=== PATIENT | female | born 1950 | race Caucasian/White ===

== ENCOUNTER 2016-12-12 04:45 | Inpatient (IN) | payer MEDICARE, OTHER ==
--- NOTE | ~2016-12-12 | DS ---
Discharge Summary [facility] [address] [place]. [address] NAME: SANTIAGO PERALTA : 48 STATUS : ADM IN PAT#: [id number] AGE: 66 ADM/REG DATE : 12/12/16 MR#: [id number] REPORT SERV DATE: 12/17/16 DICTATED BY: DARYL SHAIKH DATE: 12/16/16 REPORT STATUS : Draft TRANSCRIBED BY: MODL DATE: 12/16/16 ADMISSION DATE: 12/12/2016 DISCHARGE DATE: HISTORY OF PRESENT ILLNESS: A 66-year-old female with chronic pain, narcotic dependent patient, questionable chronic O2 use she occasionally uses at home at 2 L, history of suspected asthma, sees Dr. Hussein, known history of ischemic cardiomyopathy, LVEF 35% to 40%, cirrhosis the patient was not aware of that until this admission, splenomegaly, thrombocytopenia secondary to cirrhosis, diabetes, peripheral neuropathy, SHASHI, intolerant to CPAP, CAD with history of CABG with PCI occluded graft 2011, history of stroke, history of ventricular tachycardia status post AICD, hypertension, depression, Raynaud, colon polyps, previous MRSA, history of right mastectomy, hysterectomy, and appendectomy. The patient comes in with a cough for which she has had cough with congestion last 6 weeks per patient. She had several rounds of antibiotics, the last on Levaquin. She was in her bathroom, she is feeling ill and then all of her sudden her AICD fired upon her and knocked her to the ground almost but she did not fall. Fever 100.7 upon admission. As a result, she was seen by Cardiology and EP. Interrogation device reveals she had several sustained and nonsustained ventricular tachycardia runs, most of these occur in the first zone where ATP terminated. One of these events actually accelerated the ATP and required defibrillation. Note, that her most recent EF was within normal limits, from being 35% prior. Recently, the amiodarone was discontinued due to pulmonary function test revealing decrease in DLCO and FEV1 both which were corrected for lung volumes. As a result, her VT seems to have been well controlled while she is in combination of amiodarone and mexiletine but due to amiodarone discontinuation, the EP would like to start her on sotalol 120 p.o. b.i.d. EKG shows corrected QT of 45 milliseconds. Most latest recommendations were continue sotalol, mexiletine as per Dr. Sandhu's recommendation. Check EKG in the morning. If the QTc less than 460, the patient is stable for discharge. As a result had an EKG done yesterday, QTc is still less than 460 from today, I will go ahead and discharge and have her followup quickly. The patient was on fluoroquinolone which can worsen the QT as well as macrolide which can worsen the QT, as a result, just placed her on Omnicef for seven additional days. The patient is seen with abdominal pain, had a CT scan of the abdomen which showed probable cirrhosis. Hepatitis serologies I ordered are not seen. As a result, we will follow with Dr. Pandey, and I will make an appointment. The patient's required less insulin here likely due to better compliance, and I ordered lower extremity ultrasound. It did show extensive left lower extremity DVT as a result of her thrombocytopenia from cirrhosis, would rather choose Arixtra at a lower dose, get above 100,000, will try 7.5 subcu daily, for now we will do 5 mg subcu daily. DISCHARGE MEDICATIONS: Aspirin 81 p.o. daily; Lipitor 10 p.o. daily; Bumex 1 mg p.o. daily; Omnicef 300 p.o. b.i.d. for 7 more days; Arixtra 5 subcu daily; NovoLog level 2 sliding scale; lisinopril 5 p.o. daily; mexiletine 150 p.o. b.i.d.; sotalol 120 p.o. b.i.d.; Lortab, we will do half dose from home; MS Paxton, as at home, started p.o. b.i.d. I have instructed the patient to try to reduce her narcotics. KCl 10 mEq p.o. daily; Florastor one capsule p.o. b.i.d. for seven days. Do prednisone taper, 30 p.o. daily for 3 more days, then 10 p.o. daily for 3 days, then stop. Spiriva 18 mcg capsule inhaled daily; Aldactone Discharge Summary [place] [address] [address] [facility] [place]. [address] NAME: SANTIAGO PERALTA : 48 STATUS : ADM IN PAT#: [id number] AGE: 66 ADM/REG DATE : 12/12/16 MR#: [id number] REPORT SERV DATE: 12/17/16 DICTATED BY: DARYL SHAIKH DATE: 12/16/16 REPORT STATUS : Draft TRANSCRIBED BY: MODL DATE: 12/16/16 50 p.o. daily; Symbicort; Levemir 20 units subcu b.i.d.; and Crestor 5 p.o. daily. He will need an outpatient polysomnography test which I will get and also Cardiology and EP. PROCEDURES: The patient had echo here with EF 50% to 55% dilated left atrium, aortic sclerosis with mild aortic regurgitation, mild pulmonary valvular regurgitation. DISCHARGE DIAGNOSES: Sustained ventricular tachycardia, chronic obstructive pulmonary disease, ischemic cardiomyopathy, cirrhosis, diabetes, new deep vein thrombosis, cirrhosis, thrombocytopenia, likely obstructive sleep apnea. All questions were answered. It took well over 30 minutes to do. JANN/ERI Daryl Shaikh DO / [id number] CC: DO Brittany Phillips [facility]
--- NOTE | ~2016-12-12 | HP ---
History And Physical [place] [address] [place]. [address] NAME: SANTIAGO PERALTA : 48 STATUS : REG ER PAT#: [id number] AGE: 66 ADM/REG DATE : 12/12/16 MR#: [id number] REPORT SERV DATE: 12/12/16 DICTATED BY: JULIANNA ROD DATE: 12/12/16 REPORT STATUS : Draft TRANSCRIBED BY: ERI DATE: 12/12/16 DATE OF ADMISSION: 12/12/2016 CHIEF COMPLAINT: Defibrillator firing and cough. HISTORY OF PRESENT ILLNESS: The patient is a very pleasant 66-year-old, white female, who has a longstanding history of asthma, on chronic O2 at 3 L. The patient states for about six weeks, she has had a cough with congestion. The patient states she has seen her PCP on several occasions and has completed several rounds of antibiotics, prednisone inhalers, and has failed to improve. Last evening, she was up to the bathroom and again was feeling ill, and her AICD fired, she states it almost knocked on the floor. She actually did not fall. She presented to the [facility]. She states she has had a low- grade fever in the 99 range. She was 100.7 here. She has had no nausea, vomiting, or diarrhea. Yesterday, she had some chest tightness with breathing. She states she just has not felt good for about six weeks. She does have some sputum. She has tried over-the- counter remedies, but to no avail. She has chronic left lower extremity edema. She has gained about five pounds over the last several days, she states. PAST MEDICAL HISTORY: Positive for: 1. Ischemic cardiomyopathy with EF 35-40. 2. Cirrhosis. 3. Splenomegaly. 4. Thrombocytopenia secondary to cirrhosis. 5. Diabetes mellitus. 6. Peripheral neuropathy. 7. Diabetic retinopathy. 8. SHASHI, but intolerant of CPAP. 9. COPD/asthma, on 3 L of O2 24 hours a day. 10.CAD with history of CABG and status post PTCI with occluded grafts in 2011. 11.TIA/stroke. 12.Ventricular tachycardia status post AICD. 13.Hypertension. 14.Depression. 15.Raynaud's. 16.Atrial fibrillation. 17.Breast cancer. 18.Chronic venous stasis with previous ulceration. 19.Morbid obesity. 20.Dyslipidemia. 21.Urinary tract infections. 22.Colon polyps and previous MRSA. PAST SURGICAL HISTORY: 1. CABG in 1989. 2. AICD. 3. Right mastectomy. History And Physical [place] [address] [place]. [address] NAME: SANTIAGO PERALTA : 48 STATUS : REG ER PAT#: [id number] AGE: 66 ADM/REG DATE : 12/12/16 MR#: [id number] REPORT SERV DATE: 12/12/16 DICTATED BY: JULIANNA ROD DATE: 12/12/16 REPORT STATUS : Draft TRANSCRIBED BY: ERI DATE: 12/12/16 4. Ear tubes. 5. Hysterectomy and oophorectomy. 6. Bilateral knee surgery. 7. Appendectomy. 8. Exploratory laparotomy. 9. Left wrist surgery. ALLERGIES: SULFA AND LATEX. SOCIAL HISTORY: She never smoked. She was exposed to secondhand smoke. She does not drink. She lives with her . FAMILY HISTORY: Mother at 61 of heart disease. Father at 45 of heart disease. HOME MEDICATIONS: Reviewed and attached. REVIEW OF SYSTEMS: Full ten-point review of systems obtained. Pertinent positives are mentioned in the HPI. PHYSICAL EXAMINATION: CURRENT VITAL SIGNS: Her T-max is 100.7, BP 140/121, pulse 82, respiratory rate 20. GENERAL: Well-developed, morbidly obese, white female. HEENT: Normocephalic, atraumatic. Throat is clear. NECK: Supple. HEART: Regular rate and rhythm. LUNGS: She has diffuse expiratory and inspiratory wheezing throughout. Diminished air movement. ABDOMEN: Soft, nontender, nondistended. EXTREMITIES: Warm and dry. Skin is intact. She has 2+ doughy edema to the left lower extremity. The right lower extremity is free of edema. SKIN: She has some chronic venous stasis changes on her anterior tibia bilaterally. NEURO: She is alert. She is oriented to person, place, and time. Her speech and affect are normal. IMAGING AND LABORATORY DATA: Chest x-ray is clear, but it is a very poor film with poor inspiratory effort. Urinalysis shows no significant changes. BNP is 328. Lactate was normal. Flu swab was negative. Chemistry panel is normal other than a glucose of 244 and a troponin of 0.18. H and H of 12.5 and 38, white count 10.4, and platelets are 79. Coags are normal. EKG showed sinus tachycardia initially. ASSESSMENT/PLAN: 1. Ventricular tachycardia with automatic implantable cardioverter-defibrillator firing. She has been seen by Cardiology here. They are going to restart her amiodarone. She will be on a tele bed. I have checked her electrolytes. We will try to treat the History And Physical [address] [address] NAME: SANTIAGO PERALTA : 48 STATUS : REG ER PAT#: [id number] AGE: 66 ADM/REG DATE : 12/12/16 MR#: [id number] REPORT SERV DATE: 12/12/16 DICTATED BY: JULIANNA ROD DATE: 12/12/16 REPORT STATUS : Draft TRANSCRIBED BY: ERI DATE: 12/12/16 underlying respiratory infection. 2. Cough with fever, now with persistent symptoms for six weeks with negative chest x- rays, previously treated with antibiotics and steroids with no improvement. We will do CT chest to rule out occult pneumonia or some other finding that we are missing on x- ray. We will do a procalcitonin, sputum and blood cultures. We will cover empirically with Rocephin and azithromycin. We will add steroids to her regimen along with some DuoNeb and Pulmicort and hopefully with these measures, she will improve. 3. Diabetes mellitus with hyperglycemia. We will go and give her a.m. Levemir, provide level 2 sliding scale with fingerstick blood sugars before meals and at bedtime. 4. Chronic asthma, chronic obstructive pulmonary disease. Please see #2. 5. Coronary artery disease with history of percutaneous transluminal coronary intervention. Troponins are mildly positive, but she had an automatic implantable cardioverter-defibrillator fired and we will check two more sets of cardiac enzymes. She has been seen by Cardiology. 6. Previous transient ischemic attack. 7. Morbid obesity. Needs weight loss. 8. Ischemic cardiomyopathy. Ejection fraction is 35-40. I am going to give her one time dose of IV Bumex and restart her p.o. Bumex and then place her on some p.o. Bumex. She states she takes a diuretic, but she does not even know the name of it. I did review her records. This was what she was on previously. 9. Deep venous thrombosis prophylaxis with subcutaneous Lovenox. 10.Disposition, pending above. HANNAH/ERI Julianna Rod M.D. / [id number] CC: ANNETTE ADAMS M.D. John Carter Hemphill, MD
--- NOTE | ~2016-12-12 | CN ---
Consultation Report [address] [place]. [address] NAME: SANTIAGO PERALTA : 48 STATUS : REG ER PAT#: [id number] AGE: 66 ADM/REG DATE : 12/12/16 MR#: [id number] REPORT SERV DATE: 12/12/16 DICTATED BY: BLAIR TORRES DATE: 12/12/16 REPORT STATUS : Draft TRANSCRIBED BY: MODPaulette DATE: 12/12/16 CARDIOLOGY CONSULTATION DATE OF CONSULTATION: REQUESTING PHYSICIAN: Dr. Pike. [facility] PHYSICIAN: Elton Bridges MD. REASON FOR CONSULTATION: Defibrillator firing, ventricular tachycardia. HISTORY OF PRESENT ILLNESS: Ms. Peralta is a 66-year-old woman with a history of ischemic cardiomyopathy and coronary artery disease. She came to the emergency room after her defibrillator fired. She has had a cough for some period of time and a low-grade fever. She has been followed regularly at the [facility] and through Dr. Hussein of Pulmonology. Recent evaluation with pulmonary function test suggested mild decline in her DLCO but it was in then 90% range when corrected for alveolar ventilation. This was somewhat of a decline from a previous PFT a couple of years back. There was a question of whether the amiodarone could be part of that and since she was on dual antiarrhythmic therapy, the amiodarone was stopped several weeks ago. She reports no underlying change in her cardiac symptoms. No chest pain and chronic dyspnea with no edema. She has had no palpitations or syncope but reports her defibrillator fired. Evaluation of defibrillator confirms episodes of nonsustained ventricular tachycardia. REVIEW OF SYSTEMS: As per the history of present illness. Low-grade fevers are noted. Cough nonproductive, minimal lower extremity edema. PAST MEDICAL HISTORY: 1. COPD. 2. Morbid obesity. 3. Ventricular tachycardia status post previous ICD for many years. 4. Coronary artery disease with previous bypass surgery. 5. Ischemic cardiomyopathy with echo on 02/2016 with an EF of 50%. 6. Sleep apnea. 7. Hypertension. 8. Hypercholesterolemia. 9. Chronic congestive heart failure. FAMILY HISTORY: Noncontributory. SOCIAL HISTORY: The patient is . No tobacco is reported. ALLERGIES: SULFA, LASIX, LATEX. Consultation Report [address] [place]. [address] NAME: SANTIAGO PERALTA : 48 STATUS : REG ER PAT#: [id number] AGE: 66 ADM/REG DATE : 12/12/16 MR#: [id number] REPORT SERV DATE: 12/12/16 DICTATED BY: BLAIR TORRES DATE: 12/12/16 REPORT STATUS : Draft TRANSCRIBED BY: MODPaulette DATE: 12/12/16 HOME MEDICATIONS: Not complete at this time but after review of office notes patient had been on both mexiletine and amiodarone. PHYSICAL EXAMINATION: VITAL SIGNS: The patient is afebrile. Heart rate 84, blood pressure 136/60. GENERAL: The patient is a pleasant, obese white female, no apparent distress. HEENT: Conjunctivae are anicteric, no xanthelasma, lips without cyanosis. NECK: Supple. Jugular venous pressure is not elevated. LUNGS: Decreased breath sounds in the bases. No rales. CARDIOVASCULAR: Regular rate and rhythm. Normal S1 and S2. ABDOMEN: Soft, nontender, nondistended, with normal bowel sounds. No hepatomegaly. EXTREMITIES: Trivial lower extremity edema. NEURO/PSYCH: Alert and oriented to person, place and time. No obvious neurologic deficits. Mood and affect normal. DATA: Electrocardiogram shows sinus rhythm/sinus tachycardia, poor R-wave progression. Nonspecific ST-segment changes. IMPRESSION: 1. Nonsustained ventricular tachycardia with defibrillator firing in the setting of recent cessation of amiodarone therapy. 2. Pneumonia. 3. Recent amiodarone discontinuation as above. 4. Chronic obstructive pulmonary disease on home O2. 5. Coronary artery disease with history of ischemic cardiomyopathy. 6. Sleep apnea. 7. Hypertension. 8. Hypercholesterolemia. RECOMMENDATIONS: Ms. Peralta's defibrillator fired. She has had defibrillator for many years and never had VT before. I suspect this is related to amiodarone withdrawal. After reviewing the records, it is unclear whether the amiodarone had contributed to her decreased DLCO which was still in a reasonable range when corrected for alveolar ventilation. I think this is a matter of risk and benefit of medications. Clearly ventricular tachycardia is significant risk for her if recurrent and she is already on mexiletine. To this end, I am going to restart her amiodarone. I have discussed with her that there is some mild risk to the lungs but further evaluation could be determined if this is the most appropriate long- term treatment. She understands and agrees. WO/MODL Blair Consultation Report [place] [id number] [address] NAME: SANTIAGO PERALTA : 48 STATUS : REG ER PAT#: [id number] AGE: 66 ADM/REG DATE : 12/12/16 MR#: [id number] REPORT SERV DATE: 12/12/16 DICTATED BY: BLARI TORRES DATE: 12/12/16 REPORT STATUS : Draft TRANSCRIBED BY: ERI DATE: 12/12/16 Vanessa Torres, Ph.D, F.A.C.C. / [id number]
--- NOTE | ~2016-12-12 | CN ---
Consultation Report [facility] [address] [facility] [place]. [address] NAME: SANTIAGO PERALTA : 46 STATUS : ADM IN PAT#: [id number] AGE: 66 ADM/REG DATE : 12/12/16 MR#: [id number] REPORT SERV DATE: 12/13/16 DICTATED BY: GEORGE PATEL DATE: 12/13/16 REPORT STATUS : Draft TRANSCRIBED BY: MODL DATE: 12/13/16 ELECTROPHYSIOLOGY CONSULTATION. DATE OF CONSULTATION: 12/13/2016 REASON FOR CONSULTATION: ICD firing. HISTORY OF PRESENT ILLNESS: Ms. Peralta is a pleasant 66-year-old woman, who was admitted with ICD shock. Interrogation of her device reveals that she has had several both nonsustained and sustained ventricular tachycardia runs. Most of these have occurred in the first zone and were ATP terminated. One of the events actually accelerated with ATP and required defibrillation. The patient has a longstanding history of coronary artery disease status post CAB performed in 2011. She had an ischemic cardiomyopathy with an ejection fraction less than 35% at one point, but most recently, her ejection fraction has been within normal limits. She has a history of ventricular tachycardia, and this has been treated with a combination of medicines that include beta-arcelia, mexiletine, and amiodarone. Recently, the amiodarone was discontinued due to pulmonary function testing revealing a decrease in both DLCO and FEV1, both of which corrective for lung volumes. The patient has a known history of severe COPD, which is O2 dependent and for which she also takes steroids. PAST MEDICAL HISTORY: 1. Ischemic cardiomyopathy, ejection fraction now 55% but had been less than 35% at one point. 2. Coronary artery disease status post CABG in 2011. 3. Thrombocytopenia secondary to cirrhosis. 4. Diabetes mellitus. 5. Peripheral neuropathy. 6. Diabetic retinopathy. 7. Status post ICD history of ventricular tachycardia. 8. History of decrease in pulmonary function studies, on amiodarone, although both DLCO and FEV1 corrected for lung volumes. 9. Diabetic retinopathy. 10.COPD. 11.History of TIA stroke. 12.Hypertension. 13.History of atrial fibrillation. 14.Morbid obesity. FAMILY HISTORY: Negative for premature coronary artery disease or sudden cardiac . SOCIAL HISTORY: Negative for tobacco or alcohol. REVIEW OF SYSTEMS: Consultation Report [place] [id number] [facility] [place]. [address] NAME: SANTIAGO PERALTA : 46 STATUS : ADM IN PAT#: [id number] AGE: 66 ADM/REG DATE : 12/12/16 MR#: [id number] REPORT SERV DATE: 12/13/16 DICTATED BY: GEORGE PATEL DATE: 12/13/16 REPORT STATUS : Draft TRANSCRIBED BY: MODL DATE: 12/13/16 As noted above. All other systems reviewed and negative. PHYSICAL EXAMINATION: GENERAL: In no acute distress. VITAL SIGNS: Her blood pressure is 146/66, pulse 68, and respirations 16. GENERAL: Well developed, well nourished. HEENT: No icterus. Good dentition. NECK: Supple. No masses or thyromegaly. LUNGS: Breathing comfortably. No rales or wheezes. COR: Normal S1 and S2. No S3 or S4. No murmurs, clicks, rubs. No JVD. ABD: Soft, nondistended, nontender. No hepatosplenomegaly. EXT: No clubbing, cyanosis, or edema. Peripheral pulses, 2+/=bilaterally. SKIN: Warm and dry. No visible lesions. MS: Chest wall without deformity. No obvious clavicular fractures. NEURO/PSYCH: Oriented x3. No anxiety or depression. LABORATORY DATA: Electrolytes within normal limits. BUN and creatinine within normal limits. White blood cell count 5.2, hematocrit of 34, and platelet count of 54,000. BNP is 328. IMPRESSION: Ventricular tachycardia, which is monomorphic. This falls into the lower zone setting on her defibrillator and is usually successfully treated with ATP, although there was one episode that was accelerated and required defibrillation. Her VT seems to have been well controlled while she was taking a combination of amiodarone and mexiletine, but due to severe chronic obstructive pulmonary disease and some pulmonary function abnormalities, this was discontinued. I would like to see whether it would be successful to treat her with another antiarrhythmic agent. She already takes mexiletine and I was thinking about adding sotalol 120 mg p.o. b.i.d. to her current medications. Her renal function is within normal limits. Her EKG shows a corrected QT interval of 450 milliseconds. We will start this today. Monitor her and recheck an EKG in the morning tomorrow. If this is unsuccessful, we could consider restarting the amiodarone, although I may wish to have Pulmonary Medicine evaluate the pulmonary function testing to see whether it would be reasonable to restart the amiodarone medication. Another possibility would be ablation for ventricular tachycardia, which may be reasonable as well. TAMIR/ERI George Patel M.D. / [id number] CC: Consultation Report [address] [place] [address] NAME: SANTIAGO PERALTA : 46 STATUS : ADM IN LOCATED WITHIN [facility]#: [id number] AGE: 66 ADM/REG DATE : 12/12/16 MR#: [id number] REPORT SERV DATE: 12/13/16 DICTATED BY: GEORGE PATEL DATE: 12/13/16 REPORT STATUS : Draft TRANSCRIBED BY: ERI DATE: 12/13/16 DO ANGIE Phillips WHITNEY L
[2016-12-12 02:52] LABS: BASOPHILS 0.1 %; BASOPHILS ABSOLUTE 0.01 10/3/uL (0.0-0.16); EOSINOPHILS 1.1 %; EOSINOPHILS ABSOLUTE 0.12 10/3/uL (0.0-0.53); HEMATOCRIT 38.7 % (36.0-48.0); HEMOGLOBIN 12.5 g/dL (12.0-16.0); IMMATURE GRANULOCYTES 1.5 %; IMMATURE GRANULOCYTES ABSOLUTE 0.16 10/3/uL (0.0-0.11); LYMPHOCYTES 6.4 %; LYMPHOCYTES ABSOLUTE 0.67 10/3/uL (0.67-4.30); MEAN CORPUS HGB CONC 32.3 g/dL (32.0-36.0); MEAN CORPUSCULAR HEMOGLOB 31.9 pg (26.0-34.0); MEAN PLATELET VOLUME 10.5 fL (9.2-13.0); MONOCYTES ABSOLUTE 1.15 10/3/uL (0.21-1.20); NEUTROPHILS 79.9 %; NEUTROPHILS ABSOLUTE 8.33 10/3/uL (2.02-8.40); PLATELET COUNT 79 10/3/uL (150-400); RBC DISTRIBUTION WIDTH 14.2 % (12.0-16.0); RED CELL COUNT 3.92 10/6/uL (4.0-5.6)
[2016-12-12 02:56] LABS: ER CBC TAT 0 Hrs 18 Mins; MANUAL DIFF NO %; MEAN CORPUSCULAR VOLUME 98.7 fL (80-100); WHITE BLOOD CELLS 10.4 10/3/uL (4.5-10.5)
[2016-12-12 03:08] LABS: INTERNATIONAL NORMAL RATI 1.2 UNITS (-); PARTIAL THROMBO TIME 30.5 SEC (22.5-37.2); PROTIME (NOT ORD) 14.6 SEC (12.0-14.5)
[2016-12-12 03:10] LABS: BUN (BLOOD UREA NITROGEN) 23 MG/DL (6-23); CALCIUM, SERUM 9.2 MG/DL (8.5-10.4); CHLORIDE, SERUM 103 MMOL/L (96-112); CO2 (CARBON DIOXIDE) 33 MMOL/L (24-34); CREATININE 0.99 MG/DL (0.55-1.02); GFR AFRICAN AMERICAN 68 ML/MIN (>=60); GFR NON AFRICAN AMERICAN 59 ML/MIN (>=60); PLATELET ESTIMATE DEC (ADEQUATE); POTASSIUM, SERUM 3.9 MMOL/L (3.5-5.3); SODIUM, SERUM 144 MMOL/L (135-148); TEARDROP SHAPED RBCS FEW (3-10/OIF)
[2016-12-12 03:11] LABS: GLUCOSE, SERUM 242 MG/DL (60-99)
[2016-12-12 03:12] LABS: CHEST PAIN PROFILE TAT 0 Hrs 34 Mins; TROPONIN I 0.18 NG/ML (<0.05)
[2016-12-12 03:48] LABS: INFLUENZA A SCREEN NEGATIVE (NEGATIVE); INFLUENZA B SCREEN NEGATIVE (NEGATIVE)
[2016-12-12 04:12] LABS: LACTATE 1.1 MMOL/L (0.3-2.4)
[~2016-12-12 04:45] MED LIST: *UNABLE1; AMIODARONE PO; ANACIN PO; ASAB OR; ASAB PO; ASPIRIN; BONIVA150 MG PO; CO Q-10100 MG PO; COQ10100 MG OR; CORDARONE PO; CRESTOR; CRESTOR PO; CRESTOR5 MG PO; DEMA100 PO; FISH-EPA1000 MG PO; GLUCPH PO; HALF81 PO; HYDROCODONE; JANUVIA100 MG PO; L20 PO; L40 PO; LANTUS; LANTUS SC; LANTUSCART SC; LASIX; LEVAQ250 PO; LEVEMFLXPN SC; LIDODERM T; LISINOPRIL; LISINOPRIL PO; LOP25 PO; LOPRESSOR 25 MG PO; LOPRESSOR PO; LORTAB; LORTAB10 PO; Lantus Inj; Lopressor PO; METFORMIN; METOPROLOL; MEXILETINE PO; MEXILETINE150 MG PO; MEXITIL 150 MG150 MG PO; MICRO-K10 MEQ PO; MS CONTIN; MS CONTIN PO; MSCONT100 PO; MSCONT60 PO; MSCONTIN PO; MULTIPLE VIT PO; NEUR100 PO; NEUR300 PO; NEUR600 PO; NEXIUM40 PO; NITROSTAT0.4 MG SL; NORCO1 TAB PO; NOVOLOG; NOVOLOG SC; NOVOLOGMIX SC; NOVOPEN SC; PACERONE100 MG PO; PANTOPRAZOLE; PEP20 PO; PHENERGAN; PLAVIX PO; POTASSIUM CHLORIDE PO; PR25 PO; PRAVAC PO; PREV30 PO; PRILOSEC40 MG PO; PRIN2.5 PO; PROAIR HFA INH; STARLIX120 PO; TOPXL25 PO; V5 PO; VALIUM; VALIUM10 MG PO; VIB100 PO; VICTOZA SQ; VICTOZA18 MG/3 ML SC; VISINE0.05 % OPH; Valium PO; [UNRECOGNIZED DRUG - OTHER]; [UNRECOGNIZED DRUG - OTHER]
[2016-12-12 05:23] LABS: ASCORBIC ACID (UR NOT ORDER) NEG (NEG); BILIRUBIN, URINE NEGATIVE (NEG); ER URINALYSIS TAT 0 Hrs 00 Mins; KETONE, URINE NEGATIVE (NEG); LEUKOCYTE ESTERASE(NOT OR NEG (NEG); NITRITE (URINE) NEG (NEG); WBC (NOT ORDERED) (RFLEX) 5 (0-5)
[2016-12-12] MEDS ORDERED: LEVAQUIN5T PO (08:59)
[2016-12-12] MEDS ORDERED: TANZEUM PO (09:00)
[2016-12-12] MEDS ORDERED: CRESTOR5 MG PO (09:01)
[2016-12-12] MEDS ORDERED: LANTUS SC (09:02)
[2016-12-12] MEDS ORDERED: NOVOPEN SC (09:02)
[2016-12-12] MEDS ORDERED: GLUCPH PO (09:02)
[2016-12-12] MEDS ORDERED: PRIN5 PO (09:03)
[2016-12-12] MEDS ORDERED: BONIVA150 MG PO (09:03)
[2016-12-12] MEDS ORDERED: BUM1 PO (09:06)
[2016-12-12] MEDS ORDERED: ATROVENTUD INH (09:09)
[2016-12-12] MEDS ORDERED: SYMBICORT 160/41 INH INH (09:09)
[2016-12-12] MEDS ORDERED: NORCO1 TAB PO (09:10)
[2016-12-12] MEDS ORDERED: TESS PO (09:10)
[2016-12-12] MEDS ORDERED: MSCONTIN PO ×2 (09:11→09:12)
[2016-12-12] MEDS ORDERED: P10 PO (09:13)
[2016-12-12] MEDS ORDERED: *UNABLE1 (09:14)
[2016-12-12 16:12] LABS: PROCALCITONIN <0.05 ng/mL (<0.5)
[2016-12-12 20:07] LABS: ASCORBIC ACID (UR NOT ORDER) NEG (NEG); BILIRUBIN, URINE NEGATIVE (NEG); KETONE, URINE NEGATIVE (NEG); LEUKOCYTE ESTERASE(NOT OR NEG (NEG); WBC (NOT ORDERED) (RFLEX) 2 (0-5)
[2016-12-13 07:09] LABS: BASOPHILS 0 %; EOSINOPHILS 0 %; HEMOGLOBIN 10.9 g/dL (12.0-16.0); IMMATURE GRANULOCYTES ABSOLUTE 0.05 10/3/uL (0.0-0.11); LYMPHOCYTES ABSOLUTE 0.26 10/3/uL (0.67-4.30); MEAN CORPUS HGB CONC 32.4 g/dL (32.0-36.0); MEAN CORPUSCULAR HEMOGLOB 31.4 pg (26.0-34.0); MEAN CORPUSCULAR VOLUME 96.8 fL (80-100); MEAN PLATELET VOLUME 10.6 fL (9.2-13.0); MONOCYTES 2.1 %; MONOCYTES ABSOLUTE 0.11 10/3/uL (0.21-1.20); NEUTROPHILS 91.9 %; NEUTROPHILS ABSOLUTE 4.75 10/3/uL (2.02-8.40); RED CELL COUNT 3.47 10/6/uL (4.0-5.6)
[2016-12-13 07:10] LABS: HEMATOCRIT 33.6 % (36.0-48.0); MANUAL DIFF NO %; PLATELET COUNT 54 10/3/uL (150-400); WHITE BLOOD CELLS 5.2 10/3/uL (4.5-10.5)
[2016-12-13 07:18] LABS: BUN (BLOOD UREA NITROGEN) 22 MG/DL (6-23); CALCIUM, SERUM 8.8 MG/DL (8.5-10.4); CHLORIDE, SERUM 103 MMOL/L (96-112); CO2 (CARBON DIOXIDE) 33 MMOL/L (24-34); CREATININE 0.74 MG/DL (0.55-1.02); GFR AFRICAN AMERICAN 96 ML/MIN (>=60); GFR NON AFRICAN AMERICAN 83 ML/MIN (>=60); GLUCOSE, SERUM 237 MG/DL (60-99); POTASSIUM, SERUM 4.3 MMOL/L (3.5-5.3); SODIUM, SERUM 144 MMOL/L (135-148)
[2016-12-13 07:27] LABS: PLATELET ESTIMATE SLT DEC (ADEQUATE); TEARDROP SHAPED RBCS FEW (3-10/OIF)
[2016-12-13] MEDS ORDERED: MEXITIL 150 MG150 MG PO ×2 (13:42→14:55)
[2016-12-14 07:25] LABS: BASOPHILS 0.1 %; BASOPHILS ABSOLUTE 0.02 10/3/uL (0.0-0.16); EOSINOPHILS 0.1 %; EOSINOPHILS ABSOLUTE 0.01 10/3/uL (0.0-0.53); HEMATOCRIT 33.4 % (36.0-48.0); HEMOGLOBIN 10.8 g/dL (12.0-16.0); IMMATURE GRANULOCYTES 1.1 %; IMMATURE GRANULOCYTES ABSOLUTE 0.16 10/3/uL (0.0-0.11); LYMPHOCYTES 5.2 %; LYMPHOCYTES ABSOLUTE 0.75 10/3/uL (0.67-4.30); MEAN CORPUS HGB CONC 32.3 g/dL (32.0-36.0); MEAN CORPUSCULAR VOLUME 99.1 fL (80-100); MEAN PLATELET VOLUME 9.9 fL (9.2-13.0); MONOCYTES 6.1 %; MONOCYTES ABSOLUTE 0.87 10/3/uL (0.21-1.20); NEUTROPHILS 87.4 %; NEUTROPHILS ABSOLUTE 12.53 10/3/uL (2.02-8.40); RBC DISTRIBUTION WIDTH 14.5 % (12.0-16.0); RED CELL COUNT 3.37 10/6/uL (4.0-5.6)
[2016-12-14 07:26] LABS: MANUAL DIFF NO %; PLATELET COUNT 79 10/3/uL (150-400); WHITE BLOOD CELLS 14.3 10/3/uL (4.5-10.5)
[2016-12-14 07:46] LABS: PLATELET ESTIMATE DEC (ADEQUATE); RBC MORPHOLOGY NORM (NORMAL)
[2016-12-15 06:56] LABS: BASOPHILS 0.2 %; BASOPHILS ABSOLUTE 0.03 10/3/uL (0.0-0.16); EOSINOPHILS 0 %; HEMATOCRIT 34.7 % (36.0-48.0); HEMOGLOBIN 11.3 g/dL (12.0-16.0); IMMATURE GRANULOCYTES 2.5 %; IMMATURE GRANULOCYTES ABSOLUTE 0.35 10/3/uL (0.0-0.11); LYMPHOCYTES 5.1 %; MANUAL DIFF NO %; MEAN CORPUS HGB CONC 32.6 g/dL (32.0-36.0); MEAN CORPUSCULAR HEMOGLOB 31.9 pg (26.0-34.0); MEAN PLATELET VOLUME 10.8 fL (9.2-13.0); MONOCYTES 6.9 %; MONOCYTES ABSOLUTE 0.95 10/3/uL (0.21-1.20); NEUTROPHILS 85.3 %; NEUTROPHILS ABSOLUTE 11.76 10/3/uL (2.02-8.40); PLATELET COUNT 94 10/3/uL (150-400); RBC DISTRIBUTION WIDTH 14.2 % (12.0-16.0); RED CELL COUNT 3.54 10/6/uL (4.0-5.6); WHITE BLOOD CELLS 13.8 10/3/uL (4.5-10.5)
[2016-12-16 06:22] LABS: HEMOGLOBIN 12.4 g/dL (12.0-16.0); MEAN CORPUS HGB CONC 32.3 g/dL (32.0-36.0); MEAN CORPUSCULAR HEMOGLOB 31.6 pg (26.0-34.0); MEAN CORPUSCULAR VOLUME 97.7 fL (80-100); MEAN PLATELET VOLUME 9.9 fL (9.2-13.0); PLATELET COUNT 92 10/3/uL (150-400); RBC DISTRIBUTION WIDTH 14.1 % (12.0-16.0); RED CELL COUNT 3.93 10/6/uL (4.0-5.6); WHITE BLOOD CELLS 15.7 10/3/uL (4.5-10.5)
[2016-12-16 06:26] LABS: HEMATOCRIT 38.4 % (36.0-48.0); MANUAL DIFF YES %
[2016-12-16 06:42] LABS: IMMATURE GRANS ABSOLUTE (CALC) 0.47 10/3/uL (0.0-0.11); LYMPHOCYTES 2 %; LYMPHOCYTES ABSOLUTE (CALC) 0.31 10/3/uL (0.67-4.30); METAMYELOCYTES 3 %; MONOCYTES 8 %; MONOCYTES ABSOLUTE (CALC) 1.26 10/3/uL (0.21-1.20); NEUTROPHILS ABSOLUTE (CALC) 13.66 10/3/uL (2.02-8.40); SEGMENTED NEUTROPHIL (0) 87 %; TOTAL NUCLEATED CELLS 100
[2016-12-16 06:43] LABS: PLATELET ESTIMATE DEC (ADEQUATE); RBC MORPHOLOGY NORM (NORMAL); TOXIC GRANULATION 1+
[2016-12-17 12:49] LABS: HEPATITIS B SURFACE ANTIGEN NON-REACTIVE (NON-REACT)
[2016-12-17 13:17] LABS: HEPATITIS C ANTIBODY NON-REACTIVE (NON-REACT)
[2016-12-17 13:18] LABS: HEPATITIS B CORE AB IGM NON-REACTIVE (NON-REAC)
[2016-12-17 13:19] LABS: HEP A ANTIBODY IGM NON-REACTIVE (NON-REACT)
[2016-12-17] MEDS ORDERED: ASAB PO (14:06)
[2016-12-17] MEDS ORDERED: BUM1 PO (14:10)
[2016-12-17] MEDS ORDERED: OMNICEF300 PO (14:11)
[2016-12-17] MEDS ORDERED: ARIXTRA SC (14:14)
[2016-12-17] MEDS ORDERED: NOVOLOG SC (14:16)
[2016-12-17] MEDS ORDERED: KLOR-CON 1010 MEQ PO (14:22)
[2016-12-17] MEDS ORDERED: FLORASTOR250 MG PO (14:23)
[2016-12-17] MEDS ORDERED: BETAP120 PO (14:23)
[2016-12-17] MEDS ORDERED: SPIRIVA INH (14:24)
[2016-12-17] MEDS ORDERED: SPIRO50 PO (14:24)
[2016-12-17] MEDS ORDERED: P10 PO (14:29)
[2016-12-17] MEDS ORDERED: LEVEMIR SC (14:33)
[2017-05-07] MEDS ORDERED: TANZEUM 30 MG SC (23:05)
[2017-05-07] MEDS ORDERED: LEVEMFLXPN SC (23:06)
[2017-05-07] MEDS ORDERED: LOP25 PO (23:06)
[2017-05-07] MEDS ORDERED: NOVOPEN SC (23:07)
[2017-05-07] MEDS ORDERED: BONIVA150 MG PO (23:08)
[2017-05-07] MEDS ORDERED: MSCONTIN PO (23:08)
[2017-05-07] MEDS ORDERED: K-TABS10 MEQ PO (23:08)
[2017-05-07] MEDS ORDERED: BUM1 PO (23:09)
[2017-05-07] MEDS ORDERED: CRESTOR5 MG PO (23:09)
[2017-05-07] MEDS ORDERED: MIRALAX POWDER1 PKT PO (23:09)
[2017-05-07] MEDS ORDERED: PACERONE200 MG PO (23:09)
[2017-05-07] MEDS ORDERED: CELEXA20 PO (23:09)
[2017-05-07] MEDS ORDERED: NEUR300 PO (23:09)
[2017-05-07] MEDS ORDERED: VITAMIN D31000 UNIT PO (23:10)
[2017-05-07] MEDS ORDERED: ASAB PO (23:10)
[2017-05-07] MEDS ORDERED: ELIQUIS 5 MG TAB5 MG PO (23:10)
[2017-05-07] MEDS ORDERED: FERROUS SULF325 M1 PO (23:10)
[2017-05-07] MEDS ORDERED: SPIRIVA INH (23:10)
[2017-05-07] MEDS ORDERED: ALBUTEROL0.083 % INH (23:11)
[2017-05-15] MEDS ORDERED: BUM2 PO (14:34)
[2017-05-15] MEDS ORDERED: BUM1 PO (14:36)
[2017-05-15] MEDS ORDERED: KLOR-CON20 MEQ PO (14:38)
[2017-05-26] MEDS ORDERED: NORCO1 TA1 PO (09:36)
== END 2016-12-17 17:30 | disposition home or self-care (01) | DRG 309 ==
LOC: ER 04:45 → ER/OF 13:40 → 7NO 14:47
PROVIDERS: Internal Medicine; Specialist
DX: I47.2 Ventricular tachycardia (principal); I50.22 Chronic systolic (congestive) heart failure; E11.42 Type 2 diabetes mellitus with diabetic polyneuropathy; I82.412 Acute embolism and thrombosis of left femoral vein; E11.65 Type 2 diabetes mellitus with hyperglycemia; D69.6 Thrombocytopenia, unspecified; Z99.81 Dependence on supplemental oxygen; Z95.810 Presence of automatic (implantable) cardiac defibrillator; I25.5 Ischemic cardiomyopathy; E11.319 Type 2 diabetes mellitus with unspecified diabetic retinopathy without macular edema; J44.9 Chronic obstructive pulmonary disease, unspecified; I25.10 Atherosclerotic heart disease of native coronary artery without angina pectoris; Z95.1 Presence of aortocoronary bypass graft; Z95.5 Presence of coronary angioplasty implant and graft; Z86.73 Personal history of transient ischemic attack (TIA), and cerebral infarction without residual deficits; F32.9 Major depressive disorder, single episode, unspecified; I73.00 Raynaud's syndrome without gangrene; Z88.2 Allergy status to sulfonamides; E66.01 Morbid (severe) obesity due to excess calories; Z68.39 Body mass index [BMI] 39.0-39.9, adult; Z79.4 Long term (current) use of insulin
CPT/HCPCS: 71010; 71250; 80048; 80074; 81001; 82962; 83036; 83605; 83735; 83880; 84145; 84443; 84484; 85025; 85610; 85730; 87040; 87804; 93005; 93971; 94640; 96374; 97162-GP; 99285; A9270-GY; C8929; G8978-CK-GP; G8979-CI-GP; J0456; J1652; J2930; Q9957

== ENCOUNTER 2017-01-04 03:38 | Inpatient (IN) | payer MEDICARE, OTHER ==
--- NOTE | ~2017-01-04 | HP ---
History And Physical [place] [id number] [place]. [address] NAME: SANTIAGO PERALTA : 48 STATUS : ADM IN PAT#: [id number] AGE: 66 ADM/REG DATE : 01/04/17 MR#: [id number] REPORT SERV DATE: 01/04/17 DICTATED BY: RUSTY CONNELLY DATE: 01/04/17 REPORT STATUS : Draft TRANSCRIBED BY: MODL DATE: 01/04/17 DATE OF ADMISSION: 01/04/2017 CHIEF COMPLAINT: A 66-year-old female presenting with increasing confusion, weakness, and falls. HISTORY OF PRESENT ILLNESS: The patient's history was obtained through careful interview with patient and her , coupled with review of [facility] medical records. Although, the patient and her seem confused about exact and precise time elements of their history, it appears that over these last two months or so, the patient has had many changes in her medications. These include, being taken off the amiodarone and she believes that in over these last two weeks, she has been started on new medications that include lisinopril, sotalol, and Lasix. When she had developed DVT the last month, she had increasing lower extremity edema issues and definitely had an increase in her chronic diuretics (and may have even started these for the first time). Although, over these last few weeks, lower extremity edema has improved considerably. She has had no other swelling or issues going on. Then, over the last few days, the patient has had recurrence of falls and instability, and finally today was too weak to even get up. She was increasingly somnolent, confused, incoherent, and looked "dazed" according to her . The patient's has been able to check her blood pressure over the last few days, and it has been consistently low in the 80s and 90s at times. The patient's only pain complaint has been bilateral-knee pain which is somewhat chronic, aching quality, soreness quality, 8/10 severity, exacerbated by a weightbearing and movement. Tonight leading up to admission, the patient was completely unresponsive, so the family called EMS. When they arrived, they found that they could not arouse her and they gave her Narcan, which improved her condition remarkably. REVIEW OF SYSTEMS: Otherwise, a 14-point review of systems was obtained and was negative. PAST MEDICAL HISTORY: 1. COPD, but has never smoked. 2. Systolic congestive heart failure, ejection fraction 35% to 40%. 3. Coronary artery disease, status post CABG and stent placement. 4. AICD placement for ventricular tachycardia. Noted the patient has had occluded grafts on catheterization of the heart in 2011. 5. Obstructive sleep apnea, intolerant of CPAP. 6. Stroke. History And Physical [address] [address] NAME: SANTIAGO PERALTA : 48 STATUS : ADM IN LOCATED WITHIN [facility]#: [id number] AGE: 66 ADM/REG DATE : 01/04/17 MR#: [id number] REPORT SERV DATE: 01/04/17 DICTATED BY: RUSTY CONNELLY DATE: 01/04/17 REPORT STATUS : Draft TRANSCRIBED BY: ERI DATE: 01/04/17 7. Hypertension. 8. Cellulitis. 9. Diabetes with neuropathy and retinopathy. 10.Cirrhosis of unclear source with splenomegaly. 11.Raynaud's. 12.Depression. 13.Breast cancer in 2011, status post surgery and radiation. 14.Urinary tract infections. 15.MRSA. 16.Colon polyps, seen by Dr. Sabillon. 17.DVT, November 2016. PAST SURGICAL HISTORY: 1. CABG, 1989. 2. AICD. 3. Right mastectomy. 4. Hysterectomy with oophorectomy. 5. Appendectomy. 6. Exploratory laparoscopy. 7. Left wrist surgery. ALLERGIES: SULFA, LASIX, DUST, LATEX. SOCIAL HISTORY: Never smoked. No alcohol use. Lives in [place], [place]. She is . Has two sons, one daughter, and the son lives with the family. FAMILY HISTORY: Mother at 61 years of age of heart disease. Father at 45 years of age of heart disease. CURRENT MEDICATIONS: Include aspirin 81 mg daily, Tessalon Perles, Bumex 1 mg p.o. b.i.d., Arixtra 5 mg subcutaneous daily, Boniva once a month, NovoLog sliding scale, Victoza 1.8 mg subcutaneous daily, lisinopril 5 mg daily, MS Contin 30 mg p.o. b.i.d., potassium 10 mEq p.o. daily, Crestor 5 mg p.o. daily; sotalol 60 mg p.o. b.i.d., spironolactone 50 mg p.o. daily, Spiriva inhaled daily, and Tanzeum. PHYSICAL EXAMINATION: VITAL SIGNS: Temperature is 97.6; pulse 73; blood pressure 90/43, but it dropped into the 70s and 80s; respiratory rate 18; O2 sat 98% on room air. GENERAL: A pleasant, cooperative, female. HEENT: Pupils are equal, round, and reactive to light. No conjunctival pallor. No scleral icterus. Nares are patent. Oropharynx is clear of obstruction. Dry mucous membranes. NECK: Trachea midline. No thyromegaly. LYMPH: No cervical lymphadenopathy. No supraclavicular lymphadenopathy. RESPIRATORY: Clear to auscultation at bases. No wheezes, rales, or rhonchi. Normal respiratory effort. CARDIOVASCULAR: Regular rate and rhythm. No murmurs, rubs, or gallops. No extremity edema is appreciated. History And Physical [address] [address] NAME: SANTIAGO PERALTA : 48 STATUS : ADM IN LOCATED WITHIN [facility]#: [id number] AGE: 66 ADM/REG DATE : 01/04/17 MR#: [id number] REPORT SERV DATE: 01/04/17 DICTATED BY: RUSTY CONNELLY DATE: 01/04/17 REPORT STATUS : Draft TRANSCRIBED BY: ERI DATE: 01/04/17 ABDOMEN: Soft, nontender, nondistended. Normal bowel sounds auscultated throughout. No organomegaly. DERMATOLOGICAL: Warm and dry extremities. No pallor. No cyanosis. PSYCHIATRIC: Very lethargic, but easily aroused and does wake up enough to help with interviewing. She is poorly oriented to details of time and recent history, but is oriented well to her location. LABORATORY DATA: White blood cell count 11.7, hemoglobin 13, hematocrit 37, platelets 127. Sodium 134, potassium 5.0, chloride 99, bicarb 26, BUN 47, creatinine 3.0, baseline creatinine of 0.7, glucose 167. Troponin 0.08, but has been chronically elevated by past lab review. Albumin 2.9. Lactic acid 1.3. INR 1.3. Total bilirubin 1.1. Urinalysis negative for infection, but shows 9 hyaline casts. STUDIES: 1. Chest x-ray shows chronic appearing atelectasis changes, stable compared to November 2016. 2. EKG by my own evaluation shows sinus rhythm, first-degree AV block, right bundle-branch block, left anterior fascicular block. ASSESSMENT AND PLAN: 1. Acute renal failure. Likely induced by blood pressure medications, diuretics, and hypotension. Recently started on multiple medications by family report, at least over the last two months or so. We will adjust home medications. Place on IV fluids. Place Campbell catheter. 2. Pain medication impertinent overdose. The patient is on chronic narcotics and she was extremely somnolent and responded immediately to Narcan. 3. Shock, has responded to IV fluids, but there were such concerns the patient had a central line placed in the emergency department for anticipation of starting pressors. We will monitor initially in the IMCU because of this. 4. Chronic obstructive pulmonary disease, placed on duo nebulizers. 5. Chronic systolic congestive heart failure. Ejection fraction 35% to 40%. Monitor volume status closely. 6. Cirrhosis. 7. Recent deep vein thrombosis, on Arixtra. The patient was evaluated and discussed with Dr. Heath, Critical Care physician. KPL/MODL Rusty Connelly M.D. / [id number] CC: Mary Mcgee M.D. History And Physical [address] [address] NAME: SANTIAGO PERALTA : 48 STATUS : ADM IN LOCATED WITHIN [facility]#: [id number] AGE: 66 ADM/REG DATE : 01/04/17 MR#: [id number] REPORT SERV DATE: 01/04/17 DICTATED BY: RUSTY CONNELLY DATE: 01/04/17 REPORT STATUS : Draft TRANSCRIBED BY: MODPaulette DATE: 01/04/17 Robert Purvis M.D.
--- NOTE | ~2017-01-04 | OP ---
Record Of Operation [facility] [place] [address] [place]. [address] NAME: SNATIAGO PERALTA : 46 STATUS : ADM IN PAT#: [id number] AGE: 66 ADM/REG DATE : 01/04/17 MR#: [id number] REPORT SERV DATE: 01/07/17 DICTATED BY: GEORGE PATEL DATE: 01/07/17 REPORT STATUS : Draft TRANSCRIBED BY: MODPaulette DATE: 01/07/17 DATE OF PROCEDURE: 01/07/2017 TYPE OF PROCEDURE: Electrical cardioversion. INDICATIONS: Slow ventricular tachycardia that was not successfully treated by ATP. DESCRIPTION OF PROCEDURE: The patient was taken to the cardiac short-stay unit in a fasting, nonsedated state. She was in a slow wide-complex tachycardia that appeared to be consistent with ventricular tachycardia. The rate was 133 beats per minute. We had tried unsuccessfully to terminate the wide-complex tachycardia with antitachycardia pacing through the patient's implanted defibrillator. When this failed it was decided to have the patient undergo cardioversion for her ventricular tachycardia through the ICD. She was placed under anesthesia with propofol, please see Anesthesia's note for further details. She then underwent cardioversion at 20 joules in a synchronized fashion which restored sinus rhythm. IMPRESSION: Successful cardioversion via the patient's implanted defibrillator. PLAN: Plan is to continue intravenous amiodarone loading and begin metoprolol 50 mg p.o. b.i.d. TAMIR/ERI George Patel M.D. / [id number] CC: Shay DelV alle II, MD
--- NOTE | ~2017-01-04 | CN ---
Consultation Report [place] [id number] [place]. [address] NAME: PAT PERALTA : 48 STATUS : ADM IN [facility]#: [id number] AGE: 66 ADM/REG DATE : 01/04/17 MR#: [id number] REPORT SERV DATE: 01/07/17 DICTATED BY: ANIVAL PASCAL DATE: 01/07/17 REPORT STATUS : Draft TRANSCRIBED BY: ERI DATE: 01/07/17 CONSULTATION DATE OF CONSULTATION: REASON FOR CONSULTATION: Pat Peralta is a 66-year-old female, who is referred for onset of ventricular tachycardia. CVG PHYSICIAN: Elton Bridges M.D. HISTORY OF PRESENT ILLNESS: Mrs. Pat Peralta has a long-complicated history, recently readmitted with hypotension possibly secondary to overdiuresis with increased renal function. With hydration, renal function has improved, but this morning, she went into wide complex tachycardia at about 130 beats per minute. She has a long history of ventricular tachycardia and has an AICD in place. She has been on sotalol at home and hospital. There has been no significant change in her vital signs or feeling except she does now complain of some chest uncomfortableness, which she says is about 3/10, similar to previous angina. REVIEW OF SYSTEMS: Fairly extensively positive. PAST MEDICAL HISTORY: 1. Recent DVT. 2. History of TIA stroke. 3. Chronic pain syndrome, on narcotics. 4. History of cirrhosis with increased INR. 5. Diabetes with peripheral neuropathy. 6. COPD, O2 dependent. 7. Renal insufficiency, now improving. 8. Ischemic cardiomyopathy with left ventricular ejection fraction in the mid 30s. 9. Coronary artery disease, status post coronary bypass grafting in 2011, with mild chest pain with tachycardia. 10.Ventricular tachycardia with recurrence. 11.Paroxysmal atrial fibrillation. 12.AICD, without recent discharge. SOCIAL HISTORY: She has been hospitalized on multiple occasions, where most recently with defibrillator discharge and near syncope. Recently was discharged on sotalol. FAMILY HISTORY: Noncontributory. PHYSICAL EXAMINATION: GENERAL: At the present time, she is alert, oriented, and complains of some minor discomfort in her chest. Consultation Report [place] [id number] [facility] [place]. [address] NAME: PAT PERALTA : 48 STATUS : ADM IN PAT#: [id number] AGE: 66 ADM/REG DATE : 01/04/17 MR#: [id number] REPORT SERV DATE: 01/07/17 DICTATED BY: ANIVAL PASCAL DATE: 01/07/17 REPORT STATUS : Draft TRANSCRIBED BY: ERI DATE: 01/07/17 VITAL SIGNS: Blood pressure is 100/62, pulse is 134. She is currently mildly febrile after receiving Tylenol for temperature of 101.7. LUNGS: Normal respiratory effort with clear lung jacobsen bilaterally. HEART: Sounds are distant, but no murmurs are appreciated, although tachycardia is noted. ABDOMEN: Bowel sounds are active. She has no edema. EXTREMITIES: Lower extremities are warm. LABORATORY EVALUATION: Renal function has improved with creatinine declining from 1.4 to 0.8. INR is mildly elevated at 1.5 in the absence of anticoagulation. BNP is mildly elevated. Potassium 4.5, magnesium has been low and has been replenished. White count is normal at 6. Hematocrit is adequate at 36. Troponin is 0.08 to 0.07 without change. EKG shows wide-complex tachycardia. ASSESSMENT: New-onset wide-complex tachycardia in the middle of febrile illness. There is no change in vital signs with this dysrhythmia. May need to consider anticoagulation, although oxygen saturation has been fine, so no secondary evidence of pulmonary embolus despite her history of deep vein thrombosis. I am going to consult and discuss this case with Dr. Sandhu. At the present time, I see no indication for cardioversion or acute intervention. We discussed a possibility of amiodarone with him. PRABHJOT/ERI Anival Pascal M.D. / [id number] CC: MD Bronson Langford II, Whitney Lititia
--- NOTE | ~2017-01-04 | DS ---
Discharge Summary [facility] [address] [place]. [address] NAME: SANTIAGO PERALTA : 46 STATUS : DIS IN PAT#: [id number] AGE: 66 ADM/REG DATE : 01/04/17 MR#: [id number] REPORT SERV DATE: 01/12/17 DICTATED BY: AGAPITO ALDANA DATE: 01/11/17 REPORT STATUS : Draft TRANSCRIBED BY: MODL DATE: 01/11/17 ADMISSION DATE: 01/04/2017 DISCHARGE DATE: 01/11/2017 REASON FOR ADMISSION: Acute kidney injury and hypovolemic shock. Please refer to Dr. Watson's history and physical dated 01/04/2017 for complete details regarding the patient's admission. In brief, the patient was admitted to the intermediate care unit for her acute kidney injury and hypovolemic shock, requiring pressors. The patient was cared for by Dr. Mcgee only on admission. She was volume resuscitated and Levophed had been initiated. Nephrology was consulted for her acute kidney injury. She presented with a creatinine of around 3. Dr. Watson admitted the patient and felt like her JANELLE was likely due to persistent hypotension and ATN in the face of blood pressure medicines and diuretics. She was started on IV fluids. Volume resuscitated. Nephrology had followed along. She was taken care of in the intermediate care unit. Cardiology was consulted as the patient started showing some signs of V tach on telemetry. Dr. Sandhu was consulted and the patient was then transferred to the field reviewer's care service on 12/20/2016 from the [facility] under the care of Dr. Mcgee. The patient had been cared for by the ICU for several days and had been transferred to the floor after she was stabilized. Cardiology had started the patient on IV amiodarone and switched her Arixtra to Eliquis. The last echocardiogram was done in November, which showed a preserved EF. There was concern from the ICU that she was having a UTI and they started her on Rocephin. I assumed the care of this patient on 01/09/2017 which was approximately five days after admission, at which point, all of her acute issues were stable and we are waiting on placement. Physical Therapy had recommended inpatient rehab and she has been accepted to [facility] and will be discharged to [facility] today in a stable condition. [facility] has signed off. She is stable for discharge. DISCHARGE DIAGNOSES: Hypovolemic shock, now resolved; possible urinary tract infection, on oral Ceftin; chronic hypoxic respiratory insufficiency at baseline; ischemic cardiomyopathy with a history of chronic systolic heart failure, now with a preserved ejection fraction; ventricular tachycardia with atrial fibrillation, controlled on amiodarone and metoprolol; type 2 diabetes; acute kidney injury likely secondary to acute tubular necrosis, now resolved; chronic chronic obstructive pulmonary disease without exacerbation; history of cirrhosis, possibly cryptogenic; and chronic pain syndrome, dependent on narcotics. PROCEDURES: Include consultation with [facility], Dr. Bridges, Dr. Anival Gaston, and Dr. Sandhu; consultation with Nephrology, Dr. Whatley and Dr. Mir. Chest x-ray and renal ultrasound. DISCHARGE MEDICATIONS: Includes Eliquis 5 mg twice a day, aspirin 81 mg daily, amiodarone 400 mg twice a day, Ceftin 500 mg twice a day for three more days, insulin as per sliding scale, MS Contin 30 mg twice a day, metoprolol tartrate 25 mg twice a day, Tessalon Perles p.r.n., Tanzeum weekly on Fridays, Crestor 5 mg daily, Boniva 150 mg once a month, Spiriva daily, Bumex 1 mg twice a day, spironolactone 50 mg daily, Prinivil 5 mg daily. Discharge Summary [address] [address] NAME: SANTIAGO PERALTA : 48 STATUS : DIS IN PAT#: [id number] AGE: 66 ADM/REG DATE : 01/04/17 MR#: [id number] REPORT SERV DATE: 01/12/17 DICTATED BY: AGAPITO ALDANA DATE: 01/11/17 REPORT STATUS : Draft TRANSCRIBED BY: MODL DATE: 01/11/17 The patient will be discharged to [facility]. This is Dr. Agapito Aldana spending over 30 minutes on discharge planning and coordination of care. EDUARDO/ERI Agapito Aldana MD / [id number] CC: Agapito Aldana MD [facility] Vanessa Glass MD
--- NOTE | ~2017-01-04 | CN ---
Consultation Report [facility] [address] [place]. [address] NAME: SANTIAGO PERALTA : 46 STATUS : ADM IN PAT#: [id number] AGE: 66 ADM/REG DATE : 01/04/17 MR#: [id number] REPORT SERV DATE: 01/04/17 DICTATED BY: REJI AMAYA DATE: 01/04/17 REPORT STATUS : Draft TRANSCRIBED BY: MODL DATE: 01/04/17 NEPHROLOGY CONSULT DATE OF CONSULTATION: 01/04/2017 REASON FOR CONSULT: Acute kidney injury. HISTORY OF PRESENT ILLNESS: Ms Peralta is a 66-year-old white female with an extensive medical history as outlined below. She was here recently at [facility] from 12/12/2016 until 12/16/2016 with problems regarding dysrhythmia an AICD firing. Her creatinine was 0.7 as recently as 12/13/2016. She was discharged at that time only to return earlier today through the ER with hypotension and altered mentation. On presentation, her creatinine was 3.0. Lactate 1.3. BNP 267. Ammonia 34. She had been on PRINCESS inhibitor, Bumex, spironolactone at home. She has been given 2 L of IV fluids today. She is on Levophed at 6 mcg, and this afternoon her creatinine is down to 2.5. She is nonoliguric with a Campbell catheter, but chest x-ray suggest increasing pulmonary edema. PAST MEDICAL HISTORY: 1. Oxygen-dependent COPD. 2. Sleep apnea. 3. Coronary artery disease with bypass. 4. AICD with NSVT. 5. History of stroke and TIA. 6. Hypertension. 7. Breast cancer with right mastectomy. 8. History of cirrhosis. 9. IDDM with neuropathy. 10.Chronic pain. 11.History of bilateral knee replacements. 12.Paroxysmal atrial fibrillation on anticoagulation. MEDICATIONS: At home include aspirin, Bumex 1 mg b.i.d., Arixtra 5 mg subcu daily, Victoza, lisinopril 5 mg daily, MS Contin 30 mg b.i.d., potassium 10 mEq daily, Crestor, Betapace, Spiriva, Aldactone 50 mg daily. FAMILY HISTORY: Noncontributory to present admission. SOCIAL HISTORY: . Lifelong nonsmoker. Lives in [place], [place]. REVIEW OF SYSTEMS: Significant for three to four day history of overall decline. She has had little oral intake with relative hypotension and confusion per family. PHYSICAL EXAMINATION: Consultation Report [address] [place]. [address] NAME: SANTIAGO PERALTA : 46 STATUS : ADM IN PAT#: [id number] AGE: 66 ADM/REG DATE : 01/04/17 MR#: [id number] REPORT SERV DATE: 01/04/17 DICTATED BY: REJI AMAYA DATE: 01/04/17 REPORT STATUS : Draft TRANSCRIBED BY: ERI DATE: 01/04/17 VITAL SIGNS: Temperature 97.6, pulse 94, respirations 18, blood pressure 111/68. GENERAL: She is a lethargic, chronically ill-appearing white female, does answer questions, but falls back asleep very easily. HEENT: Sclerae without icterus. Conjunctivae not injected. Oropharynx is clear. Mucous membranes are dry. NECK: No JVD. HEART: Rhythm is paced. LUNGS: She has faint bilateral crackles and rhonchi worse on the right. No dyspnea or tachypnea on O2 per nasal cannula. ABDOMEN: Obese, soft, nontender, nondistended. Bowel sounds present throughout. EXTREMITIES: With trace edema at the ankles. She has had bilateral knee replacements. No active gout. : Deferred. Urine output is noted in the Campbell catheter. LABORATORY DATA: Sodium 134, potassium 4.7, bicarb 25, BUN 44, creatinine 2.5, GFR 19 mL/minute. Calcium 8.9, magnesium 1.9. Albumin 2.5. Troponin 0.03. White count 11,700 with 3% eosinophils, hemoglobin 11.6, platelets 129,000. INR 1.5. Echo 12/13/2016, EF 50% with RVSP 36 mmHg. ASSESSMENT AND PLAN: Ms Peralta has developed acute kidney injury in the setting of hypotension, encephalopathy, automatic implantable cardioverter-defibrillator, prior bypass surgery ejection fraction 50%, sleep apnea, oxygen-dependent chronic obstructive pulmonary disease, cirrhosis, and paroxysmal atrial fibrillation. Almost certainly her acute kidney injury is a combination of hypotension causing renal hypoperfusion in addition to some intravascular volume depletion that now appears to be over corrected. Hold PRINCESS inhibitor and Aldactone. Stop IV fluids. Dose Bumex IV x1. Hopefully, renal function will recover with the above measures and need for dialysis can be avoided. Family updated in room. Agree with plans. Continue supportive care. Watch labs. Avoid nephrotoxic medications. Group will follow. Appreciate consult. JON/MOREL Reji Amaya M.D. / [id number] CC: Mary Mcgee M.D.
--- NOTE | ~2017-01-04 | CN ---
Consultation Report [facility] [address] [place]. [address] NAME: SANTIAGO PERALTA : 48 STATUS : ADM IN PAT#: [id number] AGE: 66 ADM/REG DATE : 01/04/17 MR#: [id number] REPORT SERV DATE: 01/07/17 DICTATED BY: GEORGE PATEL DATE: 01/07/17 REPORT STATUS : Draft TRANSCRIBED BY: MODL DATE: 01/07/17 ELECTROPHYSIOLOGY CONSULTATION DATE OF CONSULTATION: 01/07/2017 REASON FOR CONSULTATION: Wide-complex tachycardia. HISTORY OF PRESENT ILLNESS: Ms. Peralta is a patient I had seen in the past. She is a pleasant 66-year-old woman with a known history of ischemic cardiomyopathy, ejection fraction of 35%. She is status post ICD. She has also had problems with both COPD and some renal insufficiency. She was admitted with both COPD exacerbation and worsening renal insufficiency. Today, she went into a wide-complex tachycardia that appeared to be most consistent with ventricular tachycardia. When I had seen the patient in the past, because of her severe COPD, we had changed her from amiodarone to sotalol. Initially, we tried to terminate the ventricular tachycardia using the antitachycardia pacing feature of the defibrillator. Of note, the ventricular tachycardia of 130 beats per minute is below the rate detection. Unfortunately, antitachycardia pacing failed to terminate the VT. There are now plans to move her to the cardiac short-stay unit and plan for cardioversion possibly via the ICD. PAST MEDICAL HISTORY: Notable for: 1. Ischemic cardiomyopathy, ejection fraction of 35%. 2. History of CAB in 2011. 3. Thrombocytopenia secondary to cirrhotic liver disease. 4. Diabetes mellitus. 5. Peripheral neuropathy. 6. Severe COPD. 7. Diabetic retinopathy. 8. History of ICD, single-chamber device for ventricular tachycardia and ischemic cardiomyopathy. 9. History of TIA and stroke. 10.Hypertension. 11.History of atrial fibrillation. 12.Morbid obesity. HOME MEDICATIONS: Include aspirin, Bumex, insulin, Prinivil, spironolactone, sotalol which she is taking 60 mg p.o. b.i.d., Crestor, potassium. Of note, I believe the patient was not taking anticoagulation due to a history of bleeding, thrombocytopenia, and cirrhotic liver disease. FAMILY HISTORY: Noncontributory. Negative for premature coronary disease. SOCIAL HISTORY: Negative tobacco or alcohol. Consultation Report [place] [address] [place]. [address] NAME: SANTIAGO PERALTA : 48 STATUS : ADM IN PAT#: [id number] AGE: 66 ADM/REG DATE : 01/04/17 MR#: [id number] REPORT SERV DATE: 01/07/17 DICTATED BY: GEORGE PATEL DATE: 01/07/17 REPORT STATUS : Draft TRANSCRIBED BY: ERI DATE: 01/07/17 REVIEW OF SYSTEMS: As noted above. All other systems reviewed and negative. PHYSICAL EXAMINATION: VITAL SIGNS: Rate is 132 beats per minute and wide-complex tachycardia that appears to be most consistent with ventricular tachycardia. Blood pressure was 100/70, respirations 16. GENERAL: Well developed, well nourished. HEENT: No icterus. Good dentition. NECK: Supple. No masses or thyromegaly. LUNGS: Decreased breath sounds. COR: She has a regular tachycardic rhythm. ABD: Soft, nondistended, nontender. No hepatosplenomegaly. EXT: No clubbing, cyanosis, or edema. Peripheral pulses 2+/= bilaterally. SKIN: Warm and dry. No visible lesions. MS: Chest wall without deformity. No obvious clavicular fractures. NEURO/PSYCH: Oriented x3. No anxiety or depression. LABORATORY VALUES: Most recently, electrolytes within normal limits. BUN and creatinine normal. White count is 5.9, hematocrit of 36, platelet count of 95,000. IMPRESSION: The patient with known history of ventricular tachycardia and ischemic cardiomyopathy, status post CAB. She is in a wide-complex tachycardia that appears to be consistent with ventricular tachycardia. She in the past has been switched from amiodarone to sotalol, but likely, I am going to restart the amiodarone. We will discontinue sotalol. We will start metoprolol in place of sotalol as well. We will need to watch her liver functions carefully due to cirrhotic liver disease. TAMIR/ERI George Patel M.D. / [id number] CC: Shay Del Valle II, MD
[~2017-01-04 03:38] MED LIST changes: +ARIXTRA SC; +ATROVENTUD INH; +BETAP120 PO; +BUM1 PO; +FLORASTOR250 MG PO; +KLOR-CON 1010 MEQ PO; +LEVAQUIN5T PO; +LEVEMIR SC; +OMNICEF300 PO; +P10 PO; +PRIN5 PO; +SPIRIVA INH; +SPIRO50 PO; +SYMBICORT 160/41 INH INH; +TANZEUM PO; +TESS PO
[2017-01-04 04:07] LABS: INTERNATIONAL NORMAL RATI 1.3 UNITS (-); PARTIAL THROMBO TIME 32.4 SEC (22.5-37.2); PROTIME (NOT ORD) 16.5 SEC (12.0-14.5)
[2017-01-04 04:10] LABS: BASOPHILS 0.3 %; BASOPHILS ABSOLUTE 0.03 10/3/uL (0.0-0.16); EOSINOPHILS 2.3 %; EOSINOPHILS ABSOLUTE 0.27 10/3/uL (0.0-0.53); ER CBC TAT 0 Hrs 18 Mins; HEMATOCRIT 37.5 % (36.0-48.0); HEMOGLOBIN 12.8 g/dL (12.0-16.0); IMMATURE GRANULOCYTES 1.5 %; IMMATURE GRANULOCYTES ABSOLUTE 0.17 10/3/uL (0.0-0.11); LYMPHOCYTES 8.4 %; LYMPHOCYTES ABSOLUTE 0.98 10/3/uL (0.67-4.30); MEAN CORPUSCULAR HEMOGLOB 32.2 pg (26.0-34.0); MEAN PLATELET VOLUME 10.1 fL (9.2-13.0); MONOCYTES ABSOLUTE 0.82 10/3/uL (0.21-1.20); NEUTROPHILS 80.5 %; RBC DISTRIBUTION WIDTH 14.3 % (12.0-16.0); RED CELL COUNT 3.97 10/6/uL (4.0-5.6); WHITE BLOOD CELLS 11.7 10/3/uL (4.5-10.5)
[2017-01-04 04:12] LABS: MANUAL DIFF NO %; MEAN CORPUS HGB CONC 34.1 g/dL (32.0-36.0); MEAN CORPUSCULAR VOLUME 94.5 fL (80-100); PLATELET COUNT 127 10/3/uL (150-400)
[2017-01-04 04:15] LABS: ALKALINE PHOSPHATASE 100 U/L (45-117); CALCIUM, SERUM 9.2 MG/DL (8.5-10.4); CHLORIDE, SERUM 99 MMOL/L (96-112); DIRECT BILIRUBIN 0.3 MG/DL (0.0-0.4); SGPT(ALT) 30 U/L (5-65); TOTAL PROTEIN 5.9 G/DL (6.0-8.5)
[2017-01-04 04:20] LABS: LACTATE 1.3 MMOL/L (0.3-2.4)
[2017-01-04 04:22] LABS: ALBUMIN 2.1 G/DL (3.5-5.0); BUN (BLOOD UREA NITROGEN) 47 MG/DL (6-23); CHEST PAIN PROFILE TAT 0 Hrs 30 Mins; CO2 (CARBON DIOXIDE) 26 MMOL/L (24-34); GFR AFRICAN AMERICAN 18 ML/MIN (>=60); GFR NON AFRICAN AMERICAN 15 ML/MIN (>=60); GLUCOSE, SERUM 167 MG/DL (60-99); INDIRECT BILIRUBIN(NOT ORDER) 0.8 MG/DL (0.1-0.9); SODIUM, SERUM 134 MMOL/L (135-148); TOTAL BILIRUBIN 1.1 MG/DL (0-1.2); TROPONIN I 0.08 NG/ML (<0.05)
[2017-01-04 04:25] LABS: SGOT(AST) 54 U/L (5-40)
[2017-01-04 05:04] LABS: ASCORBIC ACID (UR NOT ORDER) NEG (NEG); BILIRUBIN, URINE NEGATIVE (NEG); ER URINALYSIS TAT 0 Hrs 25 Mins; KETONE, URINE NEGATIVE (NEG); LEUKOCYTE ESTERASE(NOT OR NEG (NEG); NITRITE (URINE) NEG (NEG); WBC (NOT ORDERED) (RFLEX) 3 (0-5)
[2017-01-04] MEDS ORDERED: BUM1 PO (05:24)
[2017-01-04] MEDS ORDERED: SPIRO50 PO (05:25)
[2017-01-04] MEDS ORDERED: BETAP120 PO (05:27)
[2017-01-04] MEDS ORDERED: PRIN5 PO (05:28)
[2017-01-04] MEDS ORDERED: K-TABS10 MEQ PO (05:31)
[2017-01-04] MEDS ORDERED: VICTOZA18 MG/3 ML SC (05:41)
[2017-01-04 06:34] LABS: CANNABINOIDS (THC) NEG (NEG); COCAINE (NOT ORDERED) NEG (NEG); OPIATES POS (NEG); PHENCYCLIDINE(PCP) NEG (NEG)
[2017-01-04 06:38] LABS: BARBITURATES (NOT ORDERED NEG (NEG); TRICYCLICS NEG (NEG)
[2017-01-04 06:39] LABS: AMPHETAMINES (NOT ORD) POS (NEG); BENZODIAZEPINES (NOT ORD) POS (NEG)
[2017-01-04 06:45] LABS: PROCALCITONIN 0.48 ng/mL (<0.5)
[2017-01-04 10:44] LABS: BASOPHILS 0.3 %; BASOPHILS ABSOLUTE 0.03 10/3/uL (0.0-0.16); EOSINOPHILS 2.7 %; EOSINOPHILS ABSOLUTE 0.32 10/3/uL (0.0-0.53); ER CBC TAT 0 Hrs 05 Mins; HEMATOCRIT 35.2 % (36.0-48.0); HEMOGLOBIN 11.6 g/dL (12.0-16.0); IMMATURE GRANULOCYTES 1.5 %; IMMATURE GRANULOCYTES ABSOLUTE 0.18 10/3/uL (0.0-0.11); LYMPHOCYTES 8.5 %; MEAN CORPUSCULAR HEMOGLOB 30.9 pg (26.0-34.0); MEAN CORPUSCULAR VOLUME 93.6 fL (80-100); MEAN PLATELET VOLUME 10.2 fL (9.2-13.0); MONOCYTES 8.2 %; MONOCYTES ABSOLUTE 0.96 10/3/uL (0.21-1.20); NEUTROPHILS 78.8 %; NEUTROPHILS ABSOLUTE 9.22 10/3/uL (2.02-8.40); PLATELET COUNT 129 10/3/uL (150-400); RBC DISTRIBUTION WIDTH 14.5 % (12.0-16.0); RED CELL COUNT 3.76 10/6/uL (4.0-5.6); WHITE BLOOD CELLS 11.7 10/3/uL (4.5-10.5)
[2017-01-04 10:45] LABS: MANUAL DIFF NO %
[2017-01-04 10:52] LABS: INTERNATIONAL NORMAL RATI 1.5 UNITS (-); PARTIAL THROMBO TIME 41.8 SEC (22.5-37.2); PROTIME (NOT ORD) 17.8 SEC (12.0-14.5)
[2017-01-04 11:06] LABS: A/G RATIO 0.7 (0.7-1.9); ALBUMIN 2.5 G/DL (3.5-5.0); ALKALINE PHOSPHATASE 93 U/L (45-117); BUN (BLOOD UREA NITROGEN) 44 MG/DL (6-23); CALCIUM, SERUM 8.9 MG/DL (8.5-10.4); CHLORIDE, SERUM 101 MMOL/L (96-112); CK-MB 7.9 NG/ML; CKMB INDEX (NOT ORD) 9.8; CO2 (CARBON DIOXIDE) 25 MMOL/L (24-34); CPK 81 U/L (0-200); CREATININE 2.46 MG/DL (0.55-1.02); GFR AFRICAN AMERICAN 23 ML/MIN (>=60); GFR NON AFRICAN AMERICAN 19 ML/MIN (>=60); GLOBULIN 3.4 G/DL (2.5-4.1); GLUCOSE, SERUM 259 MG/DL (60-99); POTASSIUM, SERUM 4.7 MMOL/L (3.5-5.3); SGOT(AST) 47 U/L (5-40); SGPT(ALT) 29 U/L (5-65); SODIUM, SERUM 134 MMOL/L (135-148); TOTAL BILIRUBIN 1.2 MG/DL (0-1.2); TOTAL PROTEIN 5.9 G/DL (6.0-8.5); TROPONIN I 0.08 NG/ML (<0.05)
[2017-01-04 13:15] LABS: GLYCOHEMOGLOBIN (HbA1c) 6.3 % (4.7-6.1)
[2017-01-04 16:05] LABS: BE (BASE EXCESS) -3.8 MEQ/L (0 +/- 2.5); CARBOXYHEMOGLOBIN 0.6 % (0-3); DEVICE NC; HCO3 (ACTUAL BICARBONATE) 22.1 MEQ/L (23-27); HEMOBLOGIN CONTENT 10.7 G/DL (12-16); INSTRUMENT SERIAL # 8083; METHEMOGLOBIN 0.2 % (0-3); O2 CONTENT 14.5 VOL% (18-24); PCO2 (CO2 TENSION) 43 MMHG (35-45); PO2 (O2 TENSION) 95 MMHG (79-93); SAMPLE Arterial; pH 7.33 (7.37-7.43)
[2017-01-04 16:06] LABS: ALLENS TEST Pos
[2017-01-05 06:07] LABS: ALBUMIN 2.8 G/DL (3.5-5.0); BUN (BLOOD UREA NITROGEN) 30 MG/DL (6-23); CHLORIDE, SERUM 103 MMOL/L (96-112); CO2 (CARBON DIOXIDE) 28 MMOL/L (24-34); GFR AFRICAN AMERICAN 45 ML/MIN (>=60); GFR NON AFRICAN AMERICAN 39 ML/MIN (>=60); GLUCOSE, SERUM 167 MG/DL (60-99); POTASSIUM, SERUM 4.3 MMOL/L (3.5-5.3); SODIUM, SERUM 139 MMOL/L (135-148); TROPONIN I 0.07 NG/ML (<0.05)
[2017-01-05 06:13] LABS: BASOPHILS 0.2 %; BASOPHILS ABSOLUTE 0.01 10/3/uL (0.0-0.16); EOSINOPHILS 2.3 %; EOSINOPHILS ABSOLUTE 0.13 10/3/uL (0.0-0.53); HEMATOCRIT 29.4 % (36.0-48.0); HEMOGLOBIN 9.9 g/dL (12.0-16.0); IMMATURE GRANULOCYTES 0.9 %; IMMATURE GRANULOCYTES ABSOLUTE 0.05 10/3/uL (0.0-0.11); LYMPHOCYTES 11.9 %; LYMPHOCYTES ABSOLUTE 0.68 10/3/uL (0.67-4.30); MANUAL DIFF NO %; MEAN CORPUS HGB CONC 33.7 g/dL (32.0-36.0); MEAN CORPUSCULAR HEMOGLOB 31.7 pg (26.0-34.0); MEAN CORPUSCULAR VOLUME 94.2 fL (80-100); MEAN PLATELET VOLUME 10.1 fL (9.2-13.0); MONOCYTES 7.5 %; MONOCYTES ABSOLUTE 0.43 10/3/uL (0.21-1.20); NEUTROPHILS 77.2 %; NEUTROPHILS ABSOLUTE 4.41 10/3/uL (2.02-8.40); PLATELET COUNT 90 10/3/uL (150-400); RBC DISTRIBUTION WIDTH 14.2 % (12.0-16.0); RED CELL COUNT 3.12 10/6/uL (4.0-5.6); WHITE BLOOD CELLS 5.7 10/3/uL (4.5-10.5)
[2017-01-05 22:14] LABS: INFLUENZA A SCREEN NEGATIVE (NEGATIVE); INFLUENZA B SCREEN NEGATIVE (NEGATIVE)
[2017-01-06 05:52] LABS: BASOPHILS 0.6 %; BASOPHILS ABSOLUTE 0.03 10/3/uL (0.0-0.16); EOSINOPHILS 2.9 %; EOSINOPHILS ABSOLUTE 0.14 10/3/uL (0.0-0.53); HEMATOCRIT 30.6 % (36.0-48.0); HEMOGLOBIN 10.1 g/dL (12.0-16.0); IMMATURE GRANULOCYTES 0.4 %; IMMATURE GRANULOCYTES ABSOLUTE 0.02 10/3/uL (0.0-0.11); LYMPHOCYTES 18.9 %; LYMPHOCYTES ABSOLUTE 0.92 10/3/uL (0.67-4.30); MEAN CORPUSCULAR HEMOGLOB 31.9 pg (26.0-34.0); MEAN CORPUSCULAR VOLUME 96.5 fL (80-100); MEAN PLATELET VOLUME 9.8 fL (9.2-13.0); MONOCYTES 9.5 %; MONOCYTES ABSOLUTE 0.46 10/3/uL (0.21-1.20); NEUTROPHILS 67.7 %; NEUTROPHILS ABSOLUTE 3.29 10/3/uL (2.02-8.40); PLATELET COUNT 75 10/3/uL (150-400); RBC DISTRIBUTION WIDTH 14.2 % (12.0-16.0); RED CELL COUNT 3.17 10/6/uL (4.0-5.6); WHITE BLOOD CELLS 4.9 10/3/uL (4.5-10.5)
[2017-01-06 06:00] LABS: MANUAL DIFF NO %
[2017-01-06 06:06] LABS: ALBUMIN 2.7 G/DL (3.5-5.0); CALCIUM, SERUM 8.8 MG/DL (8.5-10.4); CHLORIDE, SERUM 101 MMOL/L (96-112); CO2 (CARBON DIOXIDE) 28 MMOL/L (24-34); GFR AFRICAN AMERICAN 83 ML/MIN (>=60); GFR NON AFRICAN AMERICAN 71 ML/MIN (>=60); GLUCOSE, SERUM 189 MG/DL (60-99); PHOSPHORUS, SERUM 1.4 MG/DL (2.5-4.5); POTASSIUM, SERUM 4.2 MMOL/L (3.5-5.3); SODIUM, SERUM 136 MMOL/L (135-148)
[2017-01-06 06:07] LABS: BUN (BLOOD UREA NITROGEN) 17 MG/DL (6-23); CREATININE 0.84 MG/DL (0.55-1.02)
[2017-01-06 06:14] LABS: PLATELET ESTIMATE DEC (ADEQUATE); RBC MORPHOLOGY NORM (NORMAL)
[2017-01-07 06:44] LABS: BASOPHILS 0.5 %; BASOPHILS ABSOLUTE 0.03 10/3/uL (0.0-0.16); EOSINOPHILS 2.7 %; EOSINOPHILS ABSOLUTE 0.16 10/3/uL (0.0-0.53); HEMATOCRIT 35.6 % (36.0-48.0); HEMOGLOBIN 11.8 g/dL (12.0-16.0); IMMATURE GRANULOCYTES ABSOLUTE 0.06 10/3/uL (0.0-0.11); LYMPHOCYTES 15.3 %; MANUAL DIFF NO %; MEAN CORPUS HGB CONC 33.1 g/dL (32.0-36.0); MEAN CORPUSCULAR HEMOGLOB 31.7 pg (26.0-34.0); MEAN CORPUSCULAR VOLUME 95.7 fL (80-100); MONOCYTES 7.5 %; MONOCYTES ABSOLUTE 0.44 10/3/uL (0.21-1.20); NEUTROPHILS ABSOLUTE 4.28 10/3/uL (2.02-8.40); PLATELET COUNT 95 10/3/uL (150-400); RED CELL COUNT 3.72 10/6/uL (4.0-5.6); WHITE BLOOD CELLS 5.9 10/3/uL (4.5-10.5)
[2017-01-07 06:54] LABS: CALCIUM, SERUM 9.1 MG/DL (8.5-10.4); CHLORIDE, SERUM 99 MMOL/L (96-112); CO2 (CARBON DIOXIDE) 30 MMOL/L (24-34); GFR AFRICAN AMERICAN 88 ML/MIN (>=60); GFR NON AFRICAN AMERICAN 76 ML/MIN (>=60); POTASSIUM, SERUM 4.5 MMOL/L (3.5-5.3); SODIUM, SERUM 136 MMOL/L (135-148)
[2017-01-07 06:56] LABS: BUN (BLOOD UREA NITROGEN) 13 MG/DL (6-23); GLUCOSE, SERUM 142 MG/DL (60-99)
[2017-01-07 10:21] LABS: CK-MB 3.3 NG/ML; CPK 35 U/L (0-200); TROPONIN I 0.07 NG/ML (<0.05)
[2017-01-07 10:49] LABS: ASCORBIC ACID (UR NOT ORDER) NEG (NEG); BILIRUBIN, URINE NEGATIVE (NEG); KETONE, URINE NEGATIVE (NEG); LEUKOCYTE ESTERASE(NOT OR MOD (NEG); WBC (NOT ORDERED) (RFLEX) 93 (0-5)
[2017-01-07 14:52] LABS: TROPONIN I 0.16 NG/ML (<0.05)
[2017-01-07 15:48] LABS: PROCALCITONIN 0.08 ng/mL (<0.5)
[2017-01-08 04:22] LABS: BASOPHILS 0.5 %; BASOPHILS ABSOLUTE 0.04 10/3/uL (0.0-0.16); EOSINOPHILS 2.1 %; EOSINOPHILS ABSOLUTE 0.17 10/3/uL (0.0-0.53); HEMATOCRIT 34.4 % (36.0-48.0); HEMOGLOBIN 11.6 g/dL (12.0-16.0); IMMATURE GRANULOCYTES 1.5 %; IMMATURE GRANULOCYTES ABSOLUTE 0.12 10/3/uL (0.0-0.11); LYMPHOCYTES 9.3 %; LYMPHOCYTES ABSOLUTE 0.77 10/3/uL (0.67-4.30); MEAN CORPUS HGB CONC 33.7 g/dL (32.0-36.0); MEAN CORPUSCULAR HEMOGLOB 31.8 pg (26.0-34.0); MEAN CORPUSCULAR VOLUME 94.2 fL (80-100); MEAN PLATELET VOLUME 9.8 fL (9.2-13.0); MONOCYTES 8.2 %; MONOCYTES ABSOLUTE 0.68 10/3/uL (0.21-1.20); NEUTROPHILS 78.4 %; NEUTROPHILS ABSOLUTE 6.49 10/3/uL (2.02-8.40); RBC DISTRIBUTION WIDTH 13.9 % (12.0-16.0); RED CELL COUNT 3.65 10/6/uL (4.0-5.6)
[2017-01-08 04:23] LABS: MANUAL DIFF NO %; PLATELET COUNT 156 10/3/uL (150-400); WHITE BLOOD CELLS 8.3 10/3/uL (4.5-10.5)
[2017-01-08 04:34] LABS: BUN (BLOOD UREA NITROGEN) 14 MG/DL (6-23); CALCIUM, SERUM 8.8 MG/DL (8.5-10.4); CHLORIDE, SERUM 98 MMOL/L (96-112); CO2 (CARBON DIOXIDE) 30 MMOL/L (24-34); GFR AFRICAN AMERICAN 88 ML/MIN (>=60); GFR NON AFRICAN AMERICAN 76 ML/MIN (>=60); POTASSIUM, SERUM 4.5 MMOL/L (3.5-5.3); SODIUM, SERUM 133 MMOL/L (135-148)
[2017-01-08 04:36] LABS: GLUCOSE, SERUM 177 MG/DL (60-99)
[2017-01-09 07:33] LABS: BASOPHILS 0.4 %; BASOPHILS ABSOLUTE 0.03 10/3/uL (0.0-0.16); EOSINOPHILS 2.3 %; EOSINOPHILS ABSOLUTE 0.16 10/3/uL (0.0-0.53); HEMATOCRIT 33.8 % (36.0-48.0); HEMOGLOBIN 11.4 g/dL (12.0-16.0); IMMATURE GRANULOCYTES 1.3 %; IMMATURE GRANULOCYTES ABSOLUTE 0.09 10/3/uL (0.0-0.11); LYMPHOCYTES 11.2 %; LYMPHOCYTES ABSOLUTE 0.77 10/3/uL (0.67-4.30); MANUAL DIFF NO %; MEAN CORPUS HGB CONC 33.7 g/dL (32.0-36.0); MEAN CORPUSCULAR HEMOGLOB 31.8 pg (26.0-34.0); MEAN CORPUSCULAR VOLUME 94.2 fL (80-100); MEAN PLATELET VOLUME 9.9 fL (9.2-13.0); MONOCYTES ABSOLUTE 0.55 10/3/uL (0.21-1.20); NEUTROPHILS 76.8 %; NEUTROPHILS ABSOLUTE 5.26 10/3/uL (2.02-8.40); PLATELET COUNT 145 10/3/uL (150-400); RBC DISTRIBUTION WIDTH 13.8 % (12.0-16.0); RED CELL COUNT 3.59 10/6/uL (4.0-5.6); WHITE BLOOD CELLS 6.9 10/3/uL (4.5-10.5)
[2017-01-09 07:44] LABS: BUN (BLOOD UREA NITROGEN) 12 MG/DL (6-23); CALCIUM, SERUM 9.2 MG/DL (8.5-10.4); CHLORIDE, SERUM 101 MMOL/L (96-112); CO2 (CARBON DIOXIDE) 27 MMOL/L (24-34); CREATININE 0.74 MG/DL (0.55-1.02); GFR AFRICAN AMERICAN 96 ML/MIN (>=60); GFR NON AFRICAN AMERICAN 83 ML/MIN (>=60); GLUCOSE, SERUM 185 MG/DL (60-99); PHOSPHORUS, SERUM 2.2 MG/DL (2.5-4.5); POTASSIUM, SERUM 4.4 MMOL/L (3.5-5.3); SODIUM, SERUM 135 MMOL/L (135-148)
[2017-05-07] MEDS ORDERED: TANZEUM 30 MG SC (23:05)
[2017-05-07] MEDS ORDERED: LOP25 PO (23:06)
[2017-05-07] MEDS ORDERED: LEVEMFLXPN SC (23:06)
[2017-05-07] MEDS ORDERED: NOVOPEN SC (23:07)
[2017-05-07] MEDS ORDERED: BONIVA150 MG PO (23:08)
[2017-05-07] MEDS ORDERED: K-TABS10 MEQ PO (23:08)
[2017-05-07] MEDS ORDERED: MSCONTIN PO (23:08)
[2017-05-07] MEDS ORDERED: CRESTOR5 MG PO (23:09)
[2017-05-07] MEDS ORDERED: NEUR300 PO (23:09)
[2017-05-07] MEDS ORDERED: CELEXA20 PO (23:09)
[2017-05-07] MEDS ORDERED: BUM1 PO (23:09)
[2017-05-07] MEDS ORDERED: PACERONE200 MG PO (23:09)
[2017-05-07] MEDS ORDERED: MIRALAX POWDER1 PKT PO (23:09)
[2017-05-07] MEDS ORDERED: FERROUS SULF325 M1 PO (23:10)
[2017-05-07] MEDS ORDERED: ELIQUIS 5 MG TAB5 MG PO (23:10)
[2017-05-07] MEDS ORDERED: ASAB PO (23:10)
[2017-05-07] MEDS ORDERED: VITAMIN D31000 UNIT PO (23:10)
[2017-05-07] MEDS ORDERED: SPIRIVA INH (23:10)
[2017-05-07] MEDS ORDERED: ALBUTEROL0.083 % INH (23:11)
[2017-05-15] MEDS ORDERED: BUM2 PO (14:34)
[2017-05-15] MEDS ORDERED: BUM1 PO (14:36)
[2017-05-15] MEDS ORDERED: KLOR-CON20 MEQ PO (14:38)
[2017-05-26] MEDS ORDERED: NORCO1 TA1 PO (09:36)
== END 2017-01-11 15:29 | DRG 682 ==
LOC: ER 03:38 → ER/OF 06:16 → IMCU 13:30 → 6NO 01-06 16:20 → MIC 01-07 14:27 → 7NO 01-08 12:16
PROVIDERS: Emergency Medicine; Hospitalist; Internal Medicine; Internal Medicine Nephrology
PROC: 5A2204Z Restoration of Cardiac Rhythm, Single (ICD-10-PCS; principal; 2017-01-07)
DX: N17.0 Acute kidney failure with tubular necrosis (principal); R57.1 Hypovolemic shock; J96.21 Acute and chronic respiratory failure with hypoxia; I47.2 Ventricular tachycardia; E11.42 Type 2 diabetes mellitus with diabetic polyneuropathy; F11.20 Opioid dependence, uncomplicated; I50.22 Chronic systolic (congestive) heart failure; I11.0 Hypertensive heart disease with heart failure; I48.0 Paroxysmal atrial fibrillation; E86.9 Volume depletion, unspecified; J96.22 Acute and chronic respiratory failure with hypercapnia; I25.810 Atherosclerosis of coronary artery bypass graft(s) without angina pectoris; N39.0 Urinary tract infection, site not specified; K74.69 Other cirrhosis of liver; G47.33 Obstructive sleep apnea (adult) (pediatric); I25.5 Ischemic cardiomyopathy; E11.319 Type 2 diabetes mellitus with unspecified diabetic retinopathy without macular edema; J44.9 Chronic obstructive pulmonary disease, unspecified; G89.4 Chronic pain syndrome; I73.00 Raynaud's syndrome without gangrene; F32.9 Major depressive disorder, single episode, unspecified; Z95.810 Presence of automatic (implantable) cardiac defibrillator; Z86.73 Personal history of transient ischemic attack (TIA), and cerebral infarction without residual deficits; Z85.3 Personal history of malignant neoplasm of breast; Z92.3 Personal history of irradiation; Z98.890 Other specified postprocedural states; Z87.440 Personal history of urinary (tract) infections; Z86.010 Personal history of colon polyps; Z86.718 Personal history of other venous thrombosis and embolism; Z95.1 Presence of aortocoronary bypass graft; Z90.710 Acquired absence of both cervix and uterus; Z90.49 Acquired absence of other specified parts of digestive tract; Z82.49 Family history of ischemic heart disease and other diseases of the circulatory system; Z79.82 Long term (current) use of aspirin; Z79.899 Other long term (current) drug therapy; Z79.4 Long term (current) use of insulin; Z95.5 Presence of coronary angioplasty implant and graft; Z90.11 Acquired absence of right breast and nipple; Z99.81 Dependence on supplemental oxygen; Z96.653 Presence of artificial knee joint, bilateral
CPT/HCPCS: 36600; 71010; 73502; 76775; 80048; 80053; 80069; 80076; 80305; 81001; 82140; 82550; 82553; 82805; 82962; 83036; 83605; 83735; 83880; 84100; 84145; 84443; 84484; 85025; 85610; 85730; 87040; 87086; 87641; 87804; 92960; 93005; 96374; 97162-GP; 99291; A9270-GY; G0463; G8978-CK-GP; G8979-CI-GP; J0282; J1652; P9047

== ENCOUNTER 2017-02-20 02:36 | Inpatient (IN) | payer MEDICARE, OTHER ==
--- NOTE | ~2017-02-20 | DS ---
Discharge Summary [facility] [address] [place]. [address] NAME: SANTIAGO PERALTA : 46 STATUS : DIS IN PAT#: [id number] AGE: 67 ADM/REG DATE : 02/20/17 MR#: [id number] REPORT SERV DATE: 03/01/17 DICTATED BY: EVENS YOON DATE: 02/28/17 REPORT STATUS : Draft TRANSCRIBED BY: MODL DATE: 02/28/17 ADMISSION DATE: 02/20/2017 DISCHARGE DATE: 02/28/2017 CONDITION ON DISCHARGE: Stable. DISPOSITION: Discharged to home with home health. ADVICE ON DISCHARGE: To follow up with the PCP within the next one to two weeks. DIAGNOSES ON DISCHARGE: 1. Acute decompensated heart failure with preserved ejection fraction of 50%, which is stable at this time, gastrointestinal bleed secondary to hemorrhoids which has resolved right now. The patient has undergone both an upper and a lower endoscopy at this time. Upper endoscopy shows gastritis only, and a gastric polyp that was biopsied. Lower endoscopy showed colonic polyps that were benign and were biopsied, and internal hemorrhoids only. 2. Normocytic anemia - this is improving, and the patient will be going home on iron tablets. 3. History of paroxysmal atrial fibrillation. 4. History of deep vein thrombosis. 5. Remote history of supraventricular tachycardia. 6. History of liver cirrhosis. 7. History of splenomegaly. 8. History of thrombocytopenia. 9. History of chronic hypercapnic respiratory failure, obstructive sleep apnea, obesity hypoventilation syndrome, and insulin-dependent diabetes mellitus type 2, which are all stable at this time. BRIEF HOSPITAL COURSE: Please refer to the interim discharge summary dictated by Dr. Martinez. I took over care of this patient on 02/26/2017, and between 02/26/2017 and 02/28/2017, the patient's condition improved significantly. The patient has already had both upper and lower endoscopy by 02/27/2017, and she had no more episodes of any rectal bleed. Her H and H remained stable. Her BUN and creatinine were normal. She felt better, but she does require home health nursing to help her with med assistance. The patient will also need home PT and OT, and this will be arranged. The patient is advised to follow up with her apparel merchandiser as recommended within the next few weeks, and also with her crime specialist as recommended or as arranged in the past. The most recent clinical lab reports that I have on this patient shows a WBC of 3.6, hemoglobin of 7.9, hematocrit of 25.4, which is secondary to iron deficiency anemia from both acute blood loss and chronic iron deficiency. The patient is being sent home on iron supplements. Platelet count is 83. This is also known as the patient does have history of cirrhosis and Discharge Summary [address] [address] NAME: SANTIAGO PERALTA : 46 STATUS : DIS IN PAT#: [id number] AGE: 67 ADM/REG DATE : 02/20/17 MR#: [id number] REPORT SERV DATE: 03/01/17 DICTATED BY: EVENS YOON DATE: 02/28/17 REPORT STATUS : Draft TRANSCRIBED BY: ERI DATE: 02/28/17 splenomegaly. Her electrolyte profile shows sodium 142, potassium 3.5, BUN 17, and creatinine 1. Her brain natriuretic peptide is 354.7, probably from the chronic diastolic dysfunction of the heart that she has. MEDICATIONS: Medications that she will be going home on include the following: Bumex 1 mg p.o. b.i.d.; Eliquis 5 mg p.o. b.i.d.; potassium chloride 10 mEq every day; Levemir insulin 10 units at bedtime; Lopressor 12.5 mg p.o. b.i.d.; aspirin 81 mg once a day; Crestor 5 mg once a day; Spiriva inhaler as directed once a day; morphine or MS Contin 30 mg tablets twice a day as scheduled before; Cordarone 200 mg p.o. once a day; Boniva 150 mg p.o. every month; Neurontin 300 mg p.o. b.i.d.; NovoLog 70/30 mix sliding scale, which the patient is aware of; Celexa 20 mg p.o. daily, which is a new medication, and a prescription for this has been given; ferrous sulfate 300 mg p.o. b.i.d., a new med for which prescription has been given; polyethylene glycol 2 packets p.o. daily, which is available [id number]; and Proctocort cream 1% apply topically twice a day to hemorrhoids. Hence, the patient is being discharged home in stable condition, and I have spent about 40 minutes in coordinating discharge care of this patient including [id number] encounter and summarizing this discharge. KURT/ERI Evens Yoon M.D. / [id number] CC: Evens Yoon M.D.
--- NOTE | ~2017-02-20 | EGD ---
EGD REPORT [facility] [address] [address] NAME: PAT PERALTA : 48 STATUS : ADM IN PAT#: [id number] AGE: 67 ADM/REG DATE : 02/20/17 MR#: [id number] REPORT SERV DATE: 02/25/17 DICTATED BY: OSBALDO AGUIRRE DATE: 02/25/17 REPORT STATUS : Draft TRANSCRIBED BY: [employer] DATE: 02/25/17 [facility] Patient Name: Pat Peralta Date of : 1950 Attending MD: OSBALDO AGUIRRE, Procedure Date No Time: 02/25/2017 Procedure: Colonoscopy Indications: Iron deficiency anemia secondary to chronic blood loss Referring MD: MALLY GARCIA MD Medicines: Monitored Anesthesia Care Complications: No immediate complications. Estimated blood loss: None. Procedure: Pre-Anesthesia Assessment: - ASA Grade Assessment: IV - A patient with severe systemic disease that is a constant threat to life. After I obtained informed consent, the scope was passed under direct vision. Throughout the procedure, the patient's blood pressure, pulse, and oxygen saturations were monitored continuously. The [facility] [id number] was introduced through the anus and advanced to the cecum, identified by appendiceal orifice and ileocecal valve. The colonoscopy was performed without difficulty. The patient tolerated the procedure well. The quality of the bowel preparation was good. Findings: The perianal and digital rectal examinations were normal. Internal hemorrhoids were found during retroflexion and were Grade II (internal hemorrhoids that prolapse but reduce spontaneously). Three sessile polyps were found in the transverse colon. The polyps were 3 to 5 mm in size. These polyps were removed with a cold snare. Resection and retrieval were complete. Verification of patient identification for the specimen was done. Estimated blood loss was minimal. Two sessile polyps were found in the transverse colon. The polyps were 1 to 2 mm in size. These polyps were removed with a cold biopsy forceps. Resection and retrieval were complete. Verification of patient identification for the specimen was done. Estimated blood loss was minimal. Two sessile polyps were found in the transverse colon. The polyps were 7 to 9 mm in size. These polyps were removed with a hot snare. Resection and retrieval were complete. Verification of patient identification for the specimen was done. Estimated blood loss was minimal. A sessile polyp was found in the sigmoid colon. The polyp was 5 mm in size. The polyp was removed with a cold snare. Resection and retrieval were complete. Verification of patient identification for the specimen EGD REPORT [address] [place]. [address] NAME: PAT PERALTA : 46 STATUS : ADM IN PAT#: [id number] AGE: 67 ADM/REG DATE : 02/20/17 MR#: [id number] REPORT SERV DATE: 02/25/17 DICTATED BY: OSBALDO AGUIRRE DATE: 02/25/17 REPORT STATUS : Draft TRANSCRIBED BY: [employer] DATE: 02/25/17 was done. Estimated blood loss was minimal. The exam was otherwise without abnormality on direct and retroflexion views. Impression: - Internal hemorrhoids. - Three 3 to 5 mm polyps in the transverse colon. Resected and retrieved. - Two 1 to 2 mm polyps in the transverse colon. Resected and retrieved. - Two 7 to 9 mm polyps in the transverse colon. Resected and retrieved. - One 5 mm polyp in the sigmoid colon. Resected and retrieved. - The examination was otherwise normal on direct and retroflexion views. Recommendation: - Patient has a contact number available for emergencies. The signs and symptoms of potential delayed complications were discussed with the patient. Return to normal activities tomorrow. Written discharge instructions were provided to the patient. - Return to previous diet. - Continue present medications. - Await pathology results. - Repeat colonoscopy for surveillance based on pathology results. Procedure Code(s): --- Professional --- 74864, Colonoscopy, flexible, proximal to splenic flexure; with removal of tumor(s), polyp(s), or other lesion(s) by snare technique 41776, 59, Colonoscopy, flexible, proximal to splenic flexure; with biopsy, single or multiple Diagnosis Code(s): --- Professional --- K64.1, Second degree hemorrhoids D12.5, Benign neoplasm of sigmoid colon D12.3, Benign neoplasm of transverse colon D50.0, Iron deficiency anemia secondary to blood loss (chronic) CPT copyright 2013 [employer]. All rights reserved. The codes documented in this report are preliminary and upon stock preparation operator review may be revised to meet current compliance requirements. EGD REPORT [facility] [address] [address] NAME: PAT PERALTA : [birth year] STATUS : ADM IN [facility]#: [id number] AGE: 67 ADM/REG DATE : 02/20/17 MR#: [id number] REPORT SERV DATE: 02/25/17 DICTATED BY: OSBALDO AGUIRRE DATE: 02/25/17 REPORT STATUS : Draft TRANSCRIBED BY: [employer] DATE: 02/25/17 OSBALDO AGUIRRE 02/25/2017 10:26 AM Number of Addenda: 0 Note Initiated On: 02/25/2017 9:42 AM Scope Withdrawal Time 0 hours 9 minutes 34 seconds [address] [address]
--- NOTE | ~2017-02-20 | EGD ---
EGD REPORT [facility] [address] [address] NAME: PAT PERALTA : 46 STATUS : ADM IN PAT#: [id number] AGE: 67 ADM/REG DATE : 02/20/17 MR#: [id number] REPORT SERV DATE: 02/25/17 DICTATED BY: OSBALDO AGUIRRE DATE: 02/25/17 REPORT STATUS : Draft TRANSCRIBED BY: [employer] DATE: 02/25/17 [facility] Patient Name: Pat Peralta Date of : 1950 Attending MD: OSBALDO AGUIRRE, Procedure Date No Time: 02/25/2017 Procedure: Upper GI endoscopy Indications: Iron deficiency anemia secondary to chronic blood loss, Hematochezia Referring MD: MALLY GARCIA MD Medicines: Monitored Anesthesia Care Complications: No immediate complications. Estimated blood loss: None. Procedure: Pre-Anesthesia Assessment: - ASA Grade Assessment: IV - A patient with severe systemic disease that is a constant threat to life. After obtaining informed consent, the endoscope was passed under direct vision. Throughout the procedure, the patient's blood pressure, pulse, and oxygen saturations were monitored continuously. The GIF [id number] [id number] was introduced through the mouth, and advanced to the second part of duodenum. The upper GI endoscopy was accomplished without difficulty. The patient tolerated the procedure well. Findings: The esophagus was normal. A single 5 mm sessile polyp with no bleeding and no stigmata of recent bleeding was found in the prepyloric region of the stomach. The polyp was removed with a cold biopsy forceps. Resection and retrieval were complete. Verification of patient identification for the specimen was done. Estimated blood loss was minimal. The examined duodenum was normal. Biopsies were taken with a cold forceps for histology. Verification of patient identification for the specimen was done. Estimated blood loss was minimal. Patchy mild inflammation characterized by erythema was found in the entire examined stomach. Biopsies were taken with a cold forceps for histology. Verification of patient identification for the specimen was done. Estimated blood loss was minimal. The cardia and gastric fundus were normal on retroflexion. Impression: - Normal esophagus. - A single gastric polyp. Resected and retrieved. - Normal examined duodenum. Biopsied. - Gastritis. Biopsied. EGD REPORT [address] [address] NAME: PAT PERALTA : [birth year] STATUS : ADM IN [facility]#: [id number] AGE: 67 ADM/REG DATE : 02/20/17 MR#: [id number] REPORT SERV DATE: 02/25/17 DICTATED BY: OSBALDO AGUIRRE DATE: 02/25/17 REPORT STATUS : Draft TRANSCRIBED BY: [employer] DATE: 02/25/17 Recommendation: - Patient has a contact number available for emergencies. The signs and symptoms of potential delayed complications were discussed with the patient. Return to normal activities tomorrow. Written discharge instructions were provided to the patient. - Return to previous diet. - Continue present medications. - Await pathology results. Procedure Code(s): --- Professional --- 35602, Esophagogastroduodenoscopy, flexible, transoral; with biopsy, single or multiple Diagnosis Code(s): --- Professional --- K31.7, Polyp of stomach and duodenum K29.70, Gastritis, unspecified, without bleeding D50.0, Iron deficiency anemia secondary to blood loss (chronic) K92.1, Melena CPT copyright 2013 [employer]. All rights reserved. The codes documented in this report are preliminary and upon key sander review may be revised to meet current compliance requirements. OSBALDO AGUIRRE, 02/25/2017 10:23 AM Number of Addenda: 0 Note Initiated On: 02/25/2017 9:43 AM Scope Withdrawal Time 0 hours 0 minutes 0 seconds [address] [id number]
--- NOTE | ~2017-02-20 | PUL ---
[address] [address] NAME: SANTIAGO PERALTA : [birth year] STATUS : ADM IN PAT#: [id number] AGE: 67 ADM/REG DATE : 02/20/17 MR#: [id number] REPORT SERV DATE: 02/24/17 DICTATED BY: SARAI MEADOWS DATE: 02/23/17 REPORT STATUS : Draft TRANSCRIBED BY: MODPaulette DATE: 02/23/17 PULMONARY FUNCTION TEST Overnight oximetry performed on 3 L nasal cannula. Was started on room air. Desaturated to 85% and then finished the test on 2 L nasal cannula. The patient desaturated less than 88% for 29 minutes. INTERPRETATION: Abnormal oximetry report. The patient was initially started on room air, ended the test on 2 L nasal cannula. Difficult to interpret with multiple changes in the patient's FiO2. Consider repeat study or sleep study. Clinical correlation is recommended. STEVE/ERI Sarai Meadows M.D. / [id number] CC: Sharmaine Martinez MD
--- NOTE | ~2017-02-20 | IDS ---
Interim Discharge Summary [facility] [address] [place]. [address] NAME: SANTIAGO PERALTA : 46 STATUS : ADM IN [facility]#: [id number] AGE: 67 ADM/REG DATE : 02/20/17 MR#: [id number] REPORT SERV DATE: 02/26/17 DICTATED BY: SHARMAINE HUBER DATE: 02/25/17 REPORT STATUS : Draft TRANSCRIBED BY: MODPaulette DATE: 02/25/17 ADMISSION DATE: 02/20/2017 DISCHARGE DATE: CONSULTATION: 1. Cardiology Dr. Elton Bridges. 2. Gastro[address]. Rodrigo Garrison, signed off. CURRENT DIAGNOSES: 1. Acute decompensated heart failure with preserved EF of 50%. 2. Gastrointestinal bleed. 3. Normocytic anemia. 4. History of paroxysmal atrial fibrillation. 5. History of deep vein thrombosis. 6. Remote history of supraventricular tachycardias. 7. History of liver cirrhosis. 8. History of splenomegaly. 9. History of thrombocytopenia. 10.History of chronic hypercapnic respiratory failure. 11.Obstructive sleep apnea. 12.Obesity hypoventilation syndrome. 13.Insulin-dependent diabetes mellitus type 2. CURRENT CONDITION: Stable. HISTORY OF PRESENT ILLNESS: For detailed HPI, please make reference to Dr. Shay Walker's dictation on 02/20/2017. In brief, this is a 67-year-old female with medical history of chronic congestive heart failure with EF of 50% to 55%, chronic hypoxic respiratory failure on 3 L of oxygen at home who presented to the hospital with complaints of worsening shortness of breath and features suggestive of volume overload. In the ER, blood pressure was 154/53. Physical exam significant for bilateral lower extremity edema, 2+ left greater than right. An assessment of her laboratory data showed a BNP of 967.2, creatinine 0.8, hemoglobin 8.5, white cell count 5.7, INR 1.4. An assessment of acute decompensated heart failure was made in the ER, and the patient was admitted to the Hospitalist Service. HOSPITAL COURSE: 1. Acute decompensated heart failure with preserved ejection fraction. The patient's primary manager specialty was consulted. The patient was started on gentle IV diuresis and continued to have significant urine output. The patient's urine output has significantly improved. However, it was noted by the nurse that on post EGD today, the patient received a liter of IV fluid, the reason unclear. The patient appeared to be volume up today by Cardiology assessment. Cardiology recommend to continue IV Bumex of Interim Discharge Summary [facility] [address] [place]. [address] NAME: SANTIAGO PERALTA : 46 STATUS : ADM IN PAT#: [id number] AGE: 67 ADM/REG DATE : 02/20/17 MR#: [id number] REPORT SERV DATE: 02/26/17 DICTATED BY: SHARMAINE HUBER DATE: 02/25/17 REPORT STATUS : Draft TRANSCRIBED BY: MODL DATE: 02/25/17 1 mg q.8h. at this time. 2. Gastrointestinal bleed. The patient was noted to have had an episode of hematochezia during the course of this admission, underwent EGD and colonoscopy. Today findings significant for gastritis and multiple polyps. No definitive source of GI bleed identified. Gastroenterology has currently signed off. 3. Atrial fibrillation on chronic anticoagulation with Eliquis. The patient's Eliquis was held due to concern for gastrointestinal bleed. The patient's rate has remained controlled on amiodarone and beta arcelia. The patient will likely be recommended Eliquis if okay with Cardiology and Gastroenterology as well as the patient. 4. Chronic hypercapnic respiratory failure, likely due to obesity hypoventilation syndrome as well as obstructive sleep apnea. The patient underwent an overnight pulse oximetry but it was noted that result was un-interpretable by Pulmonary because the patient was initially placed on room air during the study but was transitioned to 2 L of nasal cannula. Pulmonary has recommended to repeat the overnight pulse oximetry study. 5. History of deep venous thrombosis. The patient was diagnosed with deep vein thrombosis in January 2017 and has since been on chronic anticoagulation with Eliquis. During the course of this admission, I obtained a repeat Doppler. The patient's DVT has completely resolved but the patient is still on Eliquis. The patient wished to require anticoagulation with Eliquis due to atrial fibrillation if okay with Cardiology and Gastroenterology as well as the patient. 6. History of liver cirrhosis and splenomegaly per the patient's likely due to amiodarone, however, the patient has had extensive history of SVT, multiple trials of ablation and cardioversion per the patient. It was noted that the only medication that has controlled the patient's multiple arrhythmias is amiodarone. Hence, the patient is still currently on amiodarone. Liver enzymes have remained stable. INR has remained stable at 1.3 to 1.4. CURRENT CONDITION: Stable. Likely discharge date unknown at this time. IOO/MODL Sharmaine Huber MD / [id number] CC: Sharmaine Huber MD
--- NOTE | ~2017-02-20 | HP ---
History And Physical [place] [id number] [facility] [place]. [address] NAME: SANTIAGO PERALTA : 46 STATUS : ADM IN PAT#: [id number] AGE: 67 ADM/REG DATE : 02/20/17 MR#: [id number] REPORT SERV DATE: 02/20/17 DICTATED BY: SHALINI WATTS DATE: 02/20/17 REPORT STATUS : Draft TRANSCRIBED BY: MODL DATE: 02/20/17 DATE OF ADMISSION: 02/20/2017 POINT OF ENTRY: [facility] Emergency Department. PRIMARY GOLF INSTRUCTOR: Dr. Bridges. PRIMARY GLUE COOK: Dr. Gentile. CHIEF COMPLAINT: Shortness of breath and volume overload. HISTORY OF PRESENT ILLNESS: Ms. Peralta is a 67-year-old female with a history of chronic systolic congestive heart failure but with most recent ejection fraction of 50 to 55% as well as COPD, atrial fibrillation, coronary artery disease, and chronic hypoxic respiratory failure on 3 L by nasal cannula, who presents here today with a few day history of reports of worsening volume overload with worsening shortness of breath. The patient was recently admitted to the Hospitalist Service in December of this year for hypovolemic shock and acute kidney injury thought to be secondary to over diuresis as well as secondary to patient's antihypertensive medications. During that stay, she had troubles also with acute kidney injury, slow ventricular tachycardia requiring cardioversion, as well as a urinary tract infection. The patient was discharged to [facility] on January 12 on Bumex 1 mg b.i.d. as well as Aldactone. She was at [facility] for about a week where she reportedly was discharged on Bumex just 1 mg daily. The patient states that for the past week or so, the patient has felt signs and symptoms of volume overload including lower extremity edema, left greater than right; abdominal bloating and distention; as well as worsening shortness of breath. The patient saw Dr. Gentile in clinic about a week ago for the very first time and noted lower extremity edema and had the patient double her Bumex from 1 mg daily to 1 mg b.i.d. which the patient states she has been taking for the past five days without any significant improvement in her symptoms but does note some slight increased urinary output. They deny any fevers, night sweats, chills, chest pain, palpitations, cough, sputum production, abdominal pain, nausea, vomiting. They deny any melena but does report a single episode of some scant bright red blood per rectum earlier today, which they felt was due to hemorrhoids. Initial evaluation in the emergency department notable for a chest x-ray with signs of intravascular volume overload. BNP is elevated at 967.2, remainder of her labs otherwise unremarkable. She was subsequently admitted to the Hospitalist Service after receiving 1 mg of IV Bumex. REVIEW OF SYSTEMS: Comprehensive review of system otherwise negative unless listed in history of present illness. History And Physical [address] [address] NAME: SANTIAGO PERALTA : 48 STATUS : ADM IN [facility]#: [id number] AGE: 67 ADM/REG DATE : 02/20/17 MR#: [id number] REPORT SERV DATE: 02/20/17 DICTATED BY: SHALINI WATTS DATE: 02/20/17 REPORT STATUS : Draft TRANSCRIBED BY: ERI DATE: 02/20/17 PREVIOUS MEDICAL HISTORY: 1. Chronic systolic congestive heart failure, now with preserved ejection fraction. 2. Insulin-dependent diabetes mellitus type 2. 3. COPD on 3 L of cannula. 4. History of hepatic cirrhosis. 5. History of breast cancer, status post mastectomy. 6. Atrial fibrillation, on Eliquis. 7. Ischemic cardiomyopathy. 8. Chronic thrombocytopenia. 9. History of ventricular tachycardia, status post cardioversion. 10.History of DVT, on Eliquis. 11.Coronary artery disease with prior coronary artery bypass grafting. 12.Morbid obesity. 13.History of CVA. 14.Obstructive sleep apnea, noncompliant with CPAP therapy. SURGICAL HISTORY: 1. Cardiac bypass grafting. 2. AICD insertion. 3. Appendectomy. 4. Abdominal surgeries. 5. Right mastectomy. 6. Left wrist surgery. 7. Exploratory laparotomy. ALLERGIES: ARE TO SULFA DRUGS, LATEX, AND DUST. HOME MEDICATIONS: 1. Albuterol sulfate 1 nebulization inhalation p.r.n. 2. Amiodarone 200 mg daily. 3. Eliquis 5 mg b.i.d. 4. Aspirin 81 mg daily. 5. Bumex 1 mg b.i.d. 6. Neurontin 300 mg b.i.d. 7. Boniva 150 mg monthly. 8. Insulin Levemir 10 units at bedtime. 9. Insulin 70/30 sliding scale. 10.Lopressor 12.5 mg b.i.d. 11.MS Contin 30 mg b.i.d. 12.Potassium chloride 10 mEq daily. 13.Rosuvastatin 5 mg at bedtime. 14.Spiriva one cap inhalation daily. 15.Tanzeum 30 mg subcu weekly. SOCIAL HISTORY: Denies any tobacco, alcohol, or illicits. History And Physical [address] [place]. [address] NAME: SANTIAGO PERALTA : 48 STATUS : ADM IN PAT#: [id number] AGE: 67 ADM/REG DATE : 02/20/17 MR#: [id number] REPORT SERV DATE: 02/20/17 DICTATED BY: SHALINI WATTS DATE: 02/20/17 REPORT STATUS : Draft TRANSCRIBED BY: ERI DATE: 02/20/17 FAMILY MEDICAL HISTORY: Mother and father with heart disease. LABS AND IMAGIN. White count 5.7, hemoglobin 8.5, hematocrit 27.5, INR 1.4. 2. Sodium 144, potassium 3.3, chloride 101, carbon dioxide 41, BUN 20, creatinine 0.86, glucose 150, calcium 9.2, magnesium 1.9. 3. Troponin less than 0.02. BNP is 967.2. 4. Chest x-ray per my review shows cardiomegaly as well as mild intravascular volume overload and pulmonary venous congestion. 5. EKG per my review shows normal sinus rhythm with diffuse T-wave flattening and some mild inversions, but no evidence of any acute ischemia or infarction. PHYSICAL EXAMINATION: VITAL SIGNS: Temperature is afebrile, pulse of 68, respiratory rate is 18, saturating 95% on 4 L by nasal cannula, blood pressure 154/53. GENERAL: The patient is awake, alert, in no distress, resting comfortably. She is a morbidly obese appearing female. is at bedside. HEENT: Atraumatic and normocephalic. Moist mucous membranes. Pupils equal, round, reactive to light and accommodation. Extraocular eye movements intact. No scleral icterus. NECK: No jugular venous distention. No carotid bruits. CARDIAC: Regular rate and rhythm. No murmurs or gallops. Normal S1, S2. LUNGS: On oxygen, in no respiratory distress, decreased breath sounds in the bases with prolonged respiratory phase and has diffuse inspiratory crackles in all lung jacobsen. ABDOMEN: Obese, soft, nontender, nondistended with good bowel sounds. Some mild positive ascitic fluid wave. EXTREMITIES: Left greater than right lower extremity edema, approximately 2+ pitting. SKIN: Warm and dry. PSYCH: Affect appropriate. NEURO: Alert and oriented x3. Cranial nerves 2 through 12 grossly intact. Speech is normal. Gait not assessed. ASSESSMENT AND PLAN: Ms. Peralta is a 67-year-old female with history of chronic systolic congestive heart failure, now with preserved ejection fraction, who presents with a few weeks of signs and symptoms of aggressive volume overload despite recent increase in her diuretic regimen. PROBLEM LIST: 1. Acute on chronic systolic congestive heart failure. 2. Anemia. 3. Hypokalemia. 4. Chronic hypoxic respiratory failure. 5. Insulin-dependent DM, type 2. 6. Chronic obstructive pulmonary disease on 3 L by nasal cannula. PLAN: 1. Acute on chronic systolic congestive heart failure. The patient does have preserved ejection fraction on most recent echocardiogram from November 2016, so it is unclear as History And Physical [address] [address] NAME: SANTIAGO PERALTA : 46 STATUS : ADM IN [facility]#: [id number] AGE: 67 ADM/REG DATE : 02/20/17 MR#: [id number] REPORT SERV DATE: 02/20/17 DICTATED BY: SHALINI WATTS DATE: 02/20/17 REPORT STATUS : Draft TRANSCRIBED BY: ERI DATE: 02/20/17 to what her true etiology of her heart failure is at this time as she also has fairly good renal function right now. She received 1 mg IV Bumex here in the emergency department. We will continue IV Bumex 1 mg q.8 hours for first 24 hours and then defer remainder of her diuresis to Cardiology consultation. Placed her on fluid and sodium restriction as well as daily weights. 2. Anemia. The patient has history of chronic anemia; however, her hemoglobin of 8.5 is lower than her last values from December. She does report a single episode of what sounds like hemorrhoidal bleeding here in the emergency department. We will continue to monitor her blood counts as well as check an occult stool, but the patient denies any melena; at home is on Eliquis though. 3. Chronic hypoxic respiratory failure and chronic obstructive pulmonary disease. The patient is currently at her normal oxygen requirements of 3 L by nasal cannula. I do not appreciate any evidence of chronic obstructive pulmonary disease exacerbation at this time. However, given her bicarb of 41 on her BMP, we will check an ABG to assess true acid-base status. 4. Insulin-dependent diabetes mellitus type 2. Holding her Tanzeum as well as NovoLog 70/30, continuing her Levemir, and placed her on level 3 insulin sliding scale. 5. Deep vein thrombosis prophylaxis. The patient is currently on Eliquis. CODE STATUS: The patient wished to be full code. JCB/MODL Shalini Watts MD / [id number] CC: [place] M.D. John Carter Hemphill, MD
--- NOTE | ~2017-02-20 | CN ---
Consultation Report [facility] [address] [place]. [address] NAME: SANTIAGO PERALTA : 46 STATUS : ADM IN PAT#: [id number] AGE: 67 ADM/REG DATE : 02/20/17 MR#: [id number] REPORT SERV DATE: 02/23/17 DICTATED BY: RODRIGO GARRISON DATE: 02/23/17 REPORT STATUS : Draft TRANSCRIBED BY: MODL DATE: 02/23/17 CONSULTATION DATE OF CONSULTATION: HISTORY OF PRESENT ILLNESS: Ms. Peralta is a 67-year-old woman with substantial multiple medical problems including history of ventricular tachycardia with an ICD; DVT, recently started on Eliquis; COPD, on home oxygen; coronary artery disease; atrial fibrillation. She also reportedly has a history of cirrhosis. The patient was admitted with shortness of breath on 02/20/2017 and noted to be in congestive heart failure. She was treated with diuresis. She was noted to be substantially anemic upon admission with a hemoglobin of 8.5 and has since decreased to 7.6; when in December this had been as high as 11.8. Of note, the patient has been on some form of anticoagulant likely since November, there was somewhat difficulty to ascertain this. She did have a single episode of bright red blood per rectum prior to admission, although she denies any other substantial melena or red blood in the stool. She denies abdominal pain. The patient does have a known history of adenomatous polyps and last had a colonoscopy in 2005. It was recommended she have a followup in 2008 and apparently this was never done and she has never had an upper endoscopy as far as I can reliably tell. PAST MEDICAL HISTORY: Includes coronary artery disease, status post CABG; ventricular tachycardia; history of atrial fibrillation; history of chronic COPD, on oxygen; history of lower extremity DVT, on Eliquis; reported history of cirrhosis with thrombocytopenia; and diabetes mellitus. CURRENT MEDICATIONS: Include amiodarone, Eliquis, aspirin, Lipitor, Bumex, NovoLog, Lopressor, MS Contin, MiraLAX, potassium chloride, Spiriva, and Levemir. ALLERGIES: SHE IS ALLERGIC TO SULFA AND ADHESIVE TAPE AND LATEX. SOCIAL HISTORY: She denies current smoking or alcohol. FAMILY HISTORY: She reports on her brother's side had a history of colon cancer, although there is no other family history of GI malignancy that she is aware of. REVIEW OF SYSTEMS: Notable for shortness of breath, dyspnea on exertion, blood in the stool, increasing swelling of her extremities. Otherwise, 14-point review of systems reviewed and otherwise negative unless mentioned in the HPI. PHYSICAL EXAMINATION: VITAL SIGNS: Revealed a temperature 96.6, heart rate of 18, O2 saturation is 95 on 3 L, blood pressure 120/59. GENERAL: The patient is alert and oriented x3. Consultation Report [address] [address] NAME: SANTIAGO PERALTA : 46 STATUS : ADM IN PAT#: [id number] AGE: 67 ADM/REG DATE : 02/20/17 MR#: [id number] REPORT SERV DATE: 02/23/17 DICTATED BY: RODRIGO GARRISON DATE: 02/23/17 REPORT STATUS : Draft TRANSCRIBED BY: ERI DATE: 02/23/17 NEUROLOGIC: She did have a tremor, but no asterixis. HEENT: Sclerae were nonicteric. Her conjunctivae were clear. NECK: Revealed no crepitus or thyromegaly. LUNGS: Revealed bilateral crackles. CARDIOVASCULAR: Revealed a regular rate and rhythm. ABDOMEN: Obese, but nontender, nondistended. EXTREMITIES: Revealed bilateral lower extremity edema. SKIN: No gross skin lesions. PSYCHIATRY: She is alert and oriented x3. Proper affect and mood. LYMPHATIC: Revealed no lymphadenopathy in neck or axilla. LABORATORY DATA: Laboratory evaluation currently notable for a white blood cell count of 3.8, hemoglobin of 7.6 with an MCV of 99. Her INR was 1.4 on admission. Bicarb is 40. Her ferritin was 47 with an iron sat of 8%. IMPRESSION: 1. Multiple other comorbid medical problems, requiring anticoagulation. 2. Rectal bleeding with substantial anemia with blood results somewhat suggestive of iron deficiency. At this point, the patient has multiple medical problems. Given the need for ongoing anticoagulation, I did discuss with the patient and her . At this point, we will attempt to proceed with the upper endoscopy and colonoscopy. The risks of this procedure including the risks of bleeding, infection, perforation, adverse reaction to sedatives, missed lesion or missed diagnosis were explained to them in detail. They notified that any complication could be life threatening. At this point, we will hold her Eliquis, start on clear liquid diet tomorrow, and plan on upper and lower endoscopy for Saturday. 3. Cirrhosis. Thank you for allowing me to evaluate the patient. Please do no hesitate to contact me should you have any further concerns or questions. GO/MODL Rodrigo Garrison MD / [id number] CC: Sharmaine Martinez MD
--- NOTE | ~2017-02-20 | CN ---
Consultation Report [facility] [address] [place]. [address] NAME: SANTIAGO PERALTA : 46 STATUS : ADM IN PAT#: [id number] AGE: 67 ADM/REG DATE : 02/20/17 MR#: [id number] REPORT SERV DATE: 02/20/17 DICTATED BY: PETROS BRIDGES DATE: 02/20/17 REPORT STATUS : Draft TRANSCRIBED BY: MODL DATE: 02/20/17 CARDIOLOGY CONSULTATION NOTE DATE OF CONSULTATION: 02/20/2017 REQUESTING PHYSICIAN: Dr. Mary Mcgee. REASON FOR CONSULTATION: Medically complicated 67-year-old woman with known coronary heart disease and combined systolic and diastolic congestive heart failure with acute onset of shortness of breath, weight gain, and lower extremity edema. HISTORY OF PRESENT ILLNESS: Ms. Peralta is a medically complicated 67-year-old woman who is well known to me from Cardiology Clinic. The patient has multiple cardiovascular and medical problems which include coronary artery disease, status post coronary artery bypass grafting surgery, history of combined systolic and diastolic heart failure with most recent ejection fraction by echocardiography at 50% to 55%. The patient also has paroxysmal atrial fibrillation, history of ventricular tachycardia, and untreated obstructive sleep apnea. The patient has morbid obesity and a history of acute renal failure which was suspected to be due to overdiuresis. The patient's renal function has returned to nearly normal. The patient apparently was in her usual state of health until about one week ago. She began to experience insidious onset of worsening lower extremity edema and abdominal distention. The patient reports shortness of breath, though she does not give a clear history of orthopnea. The patient does have advanced COPD which is oxygen-dependent. The patient is on continuous nasal cannula oxygen at 3 L a minute. The patient had her home Bumex dose doubled by her primary care provider Dr. Gentile. However this was effective and the patient continued to have progressive weight gain and shortness of breath. She finally presented to the emergency room last night. The patient denies any unusual chest pain, palpitations, dizziness, or syncope. PAST MEDICAL HISTORY: 1. Chronic combined systolic and diastolic heart failure. EF 50% to 55%. 2. Type 2 diabetes-insulin dependent. 3. Advanced COPD-oxygen dependent. 4. History of hepatic cirrhosis. 5. History of breast cancer, status post mastectomy. 6. Paroxysmal atrial fibrillation. 7. Coronary artery disease, status post CABG. 8. Chronic thrombocytopenia. 9. History of ventricular tachycardia. 10.History of DVT. 11.Morbid obesity. 12.Untreated sleep apnea. 13.History of stroke. Consultation Report [place] [address] [place]. [address] NAME: SANTIAGO PERALTA : 46 STATUS : ADM IN PAT#: [id number] AGE: 67 ADM/REG DATE : 02/20/17 MR#: [id number] REPORT SERV DATE: 02/20/17 DICTATED BY: PETROS BRIDGES DATE: 02/20/17 REPORT STATUS : Draft TRANSCRIBED BY: ERI DATE: 02/20/17 PAST SURGICAL HISTORY: 1. Coronary artery bypass grafting surgery. 2. The patient is status post AICD. 3. Appendectomy. 4. Multiple abdominal surgeries. 5. Right mastectomy. 6. Left wrist surgery. 7. Exploratory laparotomy. FAMILY HISTORY: Negative for early coronary heart disease or sudden cardiac , though both the patient's father and mother eventually did develop heart disease. SOCIAL HISTORY: The patient has no current history of tobacco, alcohol, or drug use. ALLERGIES: THE PATIENT HAS DOCUMENTED ALLERGIES TO ADHESIVE TAPE, LATEX, AND SULFA DRUGS. HOME MEDICATIONS: 1. Albuterol nebulizers. 2. Amiodarone 200 mg p.o. q.a.m. 3. Eliquis 5 mg p.o. twice daily. 4. Aspirin 81 mg p.o. daily. 5. Bumex 1 mg p.o. twice daily. 6. Gabapentin 300 mg p.o. twice daily. 7. Boniva 150 mg p.o. daily x30 days. 8. Levemir insulin 10 units subcutaneously at bedtime. 9. Sliding scale NovoLog insulin. 10.Metoprolol tartrate 12.5 mg p.o. twice daily. 11.MS Contin 30 mg p.o. twice daily. 12.Potassium chloride 10 mEq p.o. q.a.m. 13.Crestor 5 mg p.o. at bedtime. 14.Spiriva 1 capsule inhaled q.a.m. 15.Tanzeum 30 mg p.o. weekly. REVIEW OF SYSTEMS: A complete 12-system review was performed. This is noncontributory except for the pertinent positives and negatives noted in the history of present illness above. PHYSICAL EXAMINATION: VITAL SIGNS: Temperature is 98.3 degrees Fahrenheit, blood pressure is 123/57 mmHg, heart rate is 62 beats per minute and regular, respirations 14, and oxygen saturation is 97% on a 3 L nasal cannula. CONSTITUTIONAL: The patient is a chronically ill-appearing, morbidly obese white woman, who is in no acute distress. She has nasal cannula oxygen in place. EYES: PERRL, EOMI, clear conjunctiva. Consultation Report [place] [id number] [place]. [address] NAME: SANTIAGO PERALTA : 46 STATUS : ADM IN PAT#: [id number] AGE: 67 ADM/REG DATE : 02/20/17 MR#: [id number] REPORT SERV DATE: 02/20/17 DICTATED BY: PETROS BRIDGES DATE: 02/20/17 REPORT STATUS : Draft TRANSCRIBED BY: ERI DATE: 02/20/17 HEAD/MNT: NCAT with moist mucous membranes and grossly normal hard and soft palate. NECK: Supple with no obvious thyromegaly or lymphadenopathy. CARDIOVASCULAR: There is a regular rhythm with a normal S1 and a physiologically split second heart sound. No significant murmurs are noted. The jugular venous pressure appears elevated at approximately 12 cm. PULMONARY: There are diffuse rales noted approximately [id number] up the thorax bilaterally. ABDOMINAL EXAM: Obese, mildly distended with no tenderness and normoactive bowel sounds. EXTREMITIES: There is 2+ pitting edema below the extremities bilaterally. There is no clubbing or cyanosis noted at this time. MUSCULOSKELETAL: Grossly normal strength and range of motion in all extremities INTEGUMENTARY: Skin appears intact with no bruises, wounds or active lesions noted. NEUROLOGIC/PSYCHIATRIC: Alert and oriented x3, with no dysarthria, facial droop or lateralizing weakness noted. DATA: 12-lead EKG: The 12-lead EKG performed 02/20/2017, at 01:51 hours shows normal sinus rhythm with poor anterior R-wave progression and nonspecific ST/T-wave abnormalities. LABORATORY DATA: Chemistry panel shows a sodium of 144, potassium 3.3, chloride is 101, CO2 of 41, BUN 20, creatinine 0.86, glucose 150, and magnesium 1.9. Troponin is 0.04. Cell count show a white blood cell count of 5.7, hemoglobin 8.5, hematocrit 28, and platelets 112. ABG shows a pH of 7.38, pCO2 of 67, and PO2 of 80 on 3 L nasal cannula. Chest x-ray: The chest x-ray shows changes of coronary artery bypass grafting surgery. The lungs show mild to moderate pulmonary edema, though this is an underexpanded film that is somewhat difficult to interpret due to the patient's obesity. ASSESSMENT AND PLAN: 1. Acute on chronic combined systolic diastolic heart failure: The patient does appear to be volume overloaded at this time. We will continue IV Bumex. Strict I and O's and daily weights are recommended. The patient will be diuresed cautiously, given her history of acute renal failure precipitated by overdiuresis. 2. Paroxysmal atrial fibrillation: Continue Eliquis. The patient appears to be in normal sinus rhythm at this time. 3. Chronic obstructive pulmonary disease: At this time, the patient's pulmonary symptoms are felt to be secondary to congestive heart failure. She has no fever, leukocytosis, or other evidence of pneumonia or infectious process. We will defer to primary service. 4. Ventricular tachycardia: Continue amiodarone. The patient has been refractory to multiple alternative antiarrhythmics, and it is recommended she continue amiodarone despite her advanced pulmonary disease due to her history of sustained ventricular tachycardia. 5. Untreated obstructive sleep apnea: I have discussed this with the patient on several Consultation Report [address] [address] NAME: SANTIAGO PERALTA : 46 STATUS : ADM IN [facility]#: [id number] AGE: 67 ADM/REG DATE : 02/20/17 MR#: [id number] REPORT SERV DATE: 02/20/17 DICTATED BY: PETROS BRIDGES DATE: 02/20/17 REPORT STATUS : Draft TRANSCRIBED BY: MODL DATE: 02/20/17 occasions. She appears to be unwilling to proceed with sleep testing or to be compliant with sleep apnea. A nocturnal pulse oximetry study will be obtained to try to quantify the severity of the patient's sleep apnea. 6. Coronary artery disease: Myocardial infarction has been excluded. Continue aspirin and Crestor. We will consider increasing Crestor dose if tolerated. Thank you for allowing me to participate in the care of Ms. Peralta. The Cardiology Service will continue to follow the patient closely during this hospitalization. JENNIFER/ERI Petros Bridges MD / [id number] CC: Mary Mcgee M.D.
--- NOTE | ~2017-02-20 | PUL ---
[place] [address] [id number] [place]. [address] NAME: SANTIAGO PERALTA : 46 STATUS : DIS IN PAT#: [id number] AGE: 67 ADM/REG DATE : 02/20/17 MR#: [id number] REPORT SERV DATE: 03/03/17 DICTATED BY: BEBETO HARRISON DATE: 03/03/17 REPORT STATUS : Draft TRANSCRIBED BY: MODL DATE: 03/03/17 PULMONARY FUNCTION TEST PROCEDURE PERFORMED: Overnight oximetry on oxygen. FINDINGS: There were slightly under 6 hours of recorded time. Despite supplemental oxygen, this patient still had 14 minutes of oxygen saturation less than 88% with 11 desaturations over 3 minutes of duration. IMPRESSION: Suboptimal correction of nocturnal hypoxemia with oxygen. Consider a higher liter flow. Consider formal sleep study if clinically indicated. ANDREW/ERI Bebeto Harrison M.D. / [id number] CC: Delma Osorio M.D.
[~2017-02-20 02:36] MED LIST changes: +K-TABS10 MEQ PO
[2017-02-20 03:17] LABS: BASOPHILS 0.4 %; BASOPHILS ABSOLUTE 0.02 10/3/uL (0.0-0.16); EOSINOPHILS 0.9 %; EOSINOPHILS ABSOLUTE 0.05 10/3/uL (0.0-0.53); IMMATURE GRANULOCYTES 0.5 %; IMMATURE GRANULOCYTES ABSOLUTE 0.03 10/3/uL (0.0-0.11); LYMPHOCYTES 10.4 %; LYMPHOCYTES ABSOLUTE 0.59 10/3/uL (0.67-4.30); MEAN CORPUSCULAR HEMOGLOB 30.8 pg (26.0-34.0); MEAN PLATELET VOLUME 10.2 fL (9.2-13.0); MONOCYTES 7.4 %; MONOCYTES ABSOLUTE 0.42 10/3/uL (0.21-1.20); NEUTROPHILS 80.4 %; NEUTROPHILS ABSOLUTE 4.55 10/3/uL (2.02-8.40); PLATELET COUNT 112 10/3/uL (150-400); WHITE BLOOD CELLS 5.7 10/3/uL (4.5-10.5)
[2017-02-20 03:18] LABS: ER CBC TAT 0 Hrs 03 MinsNP; HEMATOCRIT 27.5 % (36.0-48.0); HEMOGLOBIN 8.5 g/dL (12.0-16.0); MANUAL DIFF NO %; MEAN CORPUS HGB CONC 30.9 g/dL (32.0-36.0); MEAN CORPUSCULAR VOLUME 99.6 fL (80-100); RED CELL COUNT 2.76 10/6/uL (4.0-5.6)
[2017-02-20 03:23] LABS: INTERNATIONAL NORMAL RATI 1.4 UNITS (-); PARTIAL THROMBO TIME 33.1 SEC (22.5-37.2); PROTIME (NOT ORD) 16.7 SEC (12.0-14.5)
[2017-02-20 03:34] LABS: CALCIUM, SERUM 9.2 MG/DL (8.5-10.4); CHEST PAIN PROFILE TAT 0 Hrs 20 Mins; CHLORIDE, SERUM 101 MMOL/L (96-112); CREATININE 0.86 MG/DL (0.55-1.02); GFR AFRICAN AMERICAN 80 ML/MIN (>=60); GFR NON AFRICAN AMERICAN 69 ML/MIN (>=60); GLUCOSE, SERUM 150 MG/DL (60-99); TROPONIN I 0.04 NG/ML (<0.05)
[2017-02-20 03:36] LABS: BUN (BLOOD UREA NITROGEN) 20 MG/DL (6-23); CO2 (CARBON DIOXIDE) 41 MMOL/L (24-34); POTASSIUM, SERUM 3.3 MMOL/L (3.5-5.3); SODIUM, SERUM 144 MMOL/L (135-148)
[2017-02-20] MEDS ORDERED: BUM1 PO (04:13)
[2017-02-20] MEDS ORDERED: ELIQUIS 5 MG TAB5 MG PO (04:13)
[2017-02-20] MEDS ORDERED: KDUR10 PO (04:13)
[2017-02-20] MEDS ORDERED: LEVEMFLXPN SC (04:14)
[2017-02-20] MEDS ORDERED: CRESTOR5 MG PO (04:14)
[2017-02-20] MEDS ORDERED: ASAB PO (04:14)
[2017-02-20] MEDS ORDERED: LOP25 PO (04:14)
[2017-02-20] MEDS ORDERED: ALBUTEROL0.083 % INH (04:14)
[2017-02-20] MEDS ORDERED: SPIRIVA INH (04:15)
[2017-02-20] MEDS ORDERED: TANZEUM 30 MG SC (04:18)
[2017-02-20] MEDS ORDERED: BONIVA150 MG PO (04:19)
[2017-02-20] MEDS ORDERED: MSCONTIN PO (04:19)
[2017-02-20] MEDS ORDERED: CORDARONE PO (04:19)
[2017-02-20] MEDS ORDERED: NEUR300 PO (04:20)
[2017-02-20] MEDS ORDERED: NOVOLOG SC (04:30)
[2017-02-20 05:10] LABS: BE (BASE EXCESS) 7.9 MEQ/L (0 +/- 2.5); CARBOXYHEMOGLOBIN 1.9 % (0-3); DEVICE NC; INSTRUMENT SERIAL # 8087; METHEMOGLOBIN 0.2 % (0-3); O2 CONTENT 12.2 VOL% (18-24); PCO2 (CO2 TENSION) 58 MMHG (35-45); PO2 (O2 TENSION) 103 MMHG (79-93); SAMPLE Arterial; pH 7.39 (7.37-7.43)
[2017-02-20 07:13] LABS: ALLENS TEST Pos; BE (BASE EXCESS) 12.1 MEQ/L (0 +/- 2.5); DEVICE NC; HEMOBLOGIN CONTENT 9.1 G/DL (12-16); INSTRUMENT SERIAL # 8087; METHEMOGLOBIN 0.1 % (0-3); O2 CONTENT 11.9 VOL% (18-24); PCO2 (CO2 TENSION) 67 MMHG (35-45); PO2 (O2 TENSION) 80 MMHG (79-93); SAMPLE Arterial; pH 7.38 (7.37-7.43)
[2017-02-20 09:41] LABS: CK-MB 1.5 NG/ML; CPK 35 U/L (0-200)
[2017-02-20 09:43] LABS: TROPONIN I 0.05 NG/ML (<0.05)
[2017-02-20 15:58] LABS: CPK 31 U/L (0-200); TROPONIN I 0.03 NG/ML (<0.05)
[2017-02-20 16:02] LABS: CK-MB 1.9 NG/ML
[2017-02-21 05:10] LABS: BASOPHILS 0.7 %; BASOPHILS ABSOLUTE 0.03 10/3/uL (0.0-0.16); EOSINOPHILS 3.4 %; EOSINOPHILS ABSOLUTE 0.15 10/3/uL (0.0-0.53); HEMATOCRIT 25.8 % (36.0-48.0); HEMOGLOBIN 7.9 g/dL (12.0-16.0); IMMATURE GRANULOCYTES 0.2 %; IMMATURE GRANULOCYTES ABSOLUTE 0.01 10/3/uL (0.0-0.11); LYMPHOCYTES ABSOLUTE 0.67 10/3/uL (0.67-4.30); MEAN CORPUS HGB CONC 30.6 g/dL (32.0-36.0); MEAN CORPUSCULAR HEMOGLOB 30.7 pg (26.0-34.0); MEAN CORPUSCULAR VOLUME 100.4 fL (80-100); MEAN PLATELET VOLUME 10.4 fL (9.2-13.0); MONOCYTES 9.6 %; MONOCYTES ABSOLUTE 0.43 10/3/uL (0.21-1.20); NEUTROPHILS 71.1 %; NEUTROPHILS ABSOLUTE 3.18 10/3/uL (2.02-8.40); PLATELET COUNT 98 10/3/uL (150-400); RBC DISTRIBUTION WIDTH 14.3 % (12.0-16.0); RED CELL COUNT 2.57 10/6/uL (4.0-5.6); WHITE BLOOD CELLS 4.5 10/3/uL (4.5-10.5)
[2017-02-21 05:12] LABS: MANUAL DIFF NO %
[2017-02-21 05:22] LABS: CALCIUM, SERUM 8.9 MG/DL (8.5-10.4); CHLORIDE, SERUM 101 MMOL/L (96-112); CO2 (CARBON DIOXIDE) 39 MMOL/L (24-34); CREATININE 0.82 MG/DL (0.55-1.02); GFR AFRICAN AMERICAN 85 ML/MIN (>=60); GFR NON AFRICAN AMERICAN 73 ML/MIN (>=60); POTASSIUM, SERUM 3.5 MMOL/L (3.5-5.3); SODIUM, SERUM 144 MMOL/L (135-148)
[2017-02-21 05:25] LABS: BUN (BLOOD UREA NITROGEN) 16 MG/DL (6-23); GLUCOSE, SERUM 94 MG/DL (60-99)
[2017-02-21 11:52] LABS: RETICULOCYTE COUNT 3.5 % (0.5-2.9); RETICULOCYTE COUNT ABSOLUTE 89.6 10/3/uL (20.2-119.8)
[2017-02-21 12:31] LABS: % IRON SAT 8 % (20-50); FERRITIN 47 NG/ML (8-252); IRON BINDING CAPACITY 274 MCG/DL (225-410); IRON, SERUM 23 MCG/DL (35-150)
[2017-02-21 12:32] LABS: FOLATE 11.4 NG/ML (>5.2)
[2017-02-22 06:21] LABS: HEMATOCRIT 26.1 % (36.0-48.0); HEMOGLOBIN 8.2 g/dL (12.0-16.0); MEAN CORPUS HGB CONC 31.4 g/dL (32.0-36.0); MEAN CORPUSCULAR HEMOGLOB 31.1 pg (26.0-34.0); MEAN CORPUSCULAR VOLUME 98.9 fL (80-100); MEAN PLATELET VOLUME 10.5 fL (9.2-13.0); PLATELET COUNT 111 10/3/uL (150-400); RBC DISTRIBUTION WIDTH 14.2 % (12.0-16.0); RED CELL COUNT 2.64 10/6/uL (4.0-5.6); WHITE BLOOD CELLS 4.3 10/3/uL (4.5-10.5)
[2017-02-22 06:23] LABS: MANUAL DIFF YES %
[2017-02-22 06:31] LABS: BUN (BLOOD UREA NITROGEN) 18 MG/DL (6-23); CALCIUM, SERUM 9.3 MG/DL (8.5-10.4); CHLORIDE, SERUM 99 MMOL/L (96-112); CO2 (CARBON DIOXIDE) 38 MMOL/L (24-34); CREATININE 0.95 MG/DL (0.55-1.02); GFR AFRICAN AMERICAN 71 ML/MIN (>=60); GFR NON AFRICAN AMERICAN 61 ML/MIN (>=60); GLUCOSE, SERUM 109 MG/DL (60-99); POTASSIUM, SERUM 3.6 MMOL/L (3.5-5.3); SODIUM, SERUM 142 MMOL/L (135-148)
[2017-02-22 07:15] LABS: BAND NEUTROPHILS 3 %; EOSINOPHILS 2 %; EOSINOPHILS ABSOLUTE (CALC) 0.09 10/3/uL (0.0-0.53); LYMPHOCYTES 15 %; LYMPHOCYTES ABSOLUTE (CALC) 0.65 10/3/uL (0.67-4.30); MONOCYTES 8 %; MONOCYTES ABSOLUTE (CALC) 0.34 10/3/uL (0.21-1.20); NEUTROPHILS ABSOLUTE (CALC) 3.23 10/3/uL (2.02-8.40); PLATELET ESTIMATE SLT DEC (ADEQUATE); SEGMENTED NEUTROPHIL (0) 72 %; TOTAL NUCLEATED CELLS 100
[2017-02-22 07:16] LABS: HYPOCHROMIA 1+ (3-10/OIF) (0-2/OIF); MICROCYTES 1+ (5-10/OIF) (0-5/OIF)
[2017-02-23 05:34] LABS: BASOPHILS 0.3 %; BASOPHILS ABSOLUTE 0.01 10/3/uL (0.0-0.16); EOSINOPHILS 2.6 %; HEMATOCRIT 24.4 % (36.0-48.0); HEMOGLOBIN 7.6 g/dL (12.0-16.0); IMMATURE GRANULOCYTES 0.5 %; IMMATURE GRANULOCYTES ABSOLUTE 0.02 10/3/uL (0.0-0.11); LYMPHOCYTES 16.1 %; LYMPHOCYTES ABSOLUTE 0.61 10/3/uL (0.67-4.30); MEAN CORPUS HGB CONC 31.1 g/dL (32.0-36.0); MEAN CORPUSCULAR HEMOGLOB 30.9 pg (26.0-34.0); MEAN CORPUSCULAR VOLUME 99.2 fL (80-100); MEAN PLATELET VOLUME 10.2 fL (9.2-13.0); MONOCYTES 8.5 %; MONOCYTES ABSOLUTE 0.32 10/3/uL (0.21-1.20); NEUTROPHILS ABSOLUTE 2.72 10/3/uL (2.02-8.40); PLATELET COUNT 93 10/3/uL (150-400); RED CELL COUNT 2.46 10/6/uL (4.0-5.6); WHITE BLOOD CELLS 3.8 10/3/uL (4.5-10.5)
[2017-02-23 05:35] LABS: MANUAL DIFF NO %
[2017-02-23 05:50] LABS: BUN (BLOOD UREA NITROGEN) 19 MG/DL (6-23); CALCIUM, SERUM 9.3 MG/DL (8.5-10.4); CHLORIDE, SERUM 99 MMOL/L (96-112); CO2 (CARBON DIOXIDE) 40 MMOL/L (24-34); CREATININE 0.97 MG/DL (0.55-1.02); GFR AFRICAN AMERICAN 69 ML/MIN (>=60); GFR NON AFRICAN AMERICAN 60 ML/MIN (>=60); GLUCOSE, SERUM 118 MG/DL (60-99); POTASSIUM, SERUM 3.5 MMOL/L (3.5-5.3); SODIUM, SERUM 142 MMOL/L (135-148)
[2017-02-23 15:48] LABS: HEMOGLOBIN 8.9 g/dL (12.0-16.0)
[2017-02-23 15:49] LABS: HEMATOCRIT 28.6 % (36.0-48.0)
[2017-02-24 06:11] LABS: BASOPHILS 0.7 %; BASOPHILS ABSOLUTE 0.03 10/3/uL (0.0-0.16); EOSINOPHILS 2.3 %; HEMATOCRIT 26.1 % (36.0-48.0); HEMOGLOBIN 8.1 g/dL (12.0-16.0); IMMATURE GRANULOCYTES 0.5 %; IMMATURE GRANULOCYTES ABSOLUTE 0.02 10/3/uL (0.0-0.11); LYMPHOCYTES 18.3 %; LYMPHOCYTES ABSOLUTE 0.78 10/3/uL (0.67-4.30); MEAN PLATELET VOLUME 10.5 fL (9.2-13.0); MONOCYTES 11.3 %; MONOCYTES ABSOLUTE 0.48 10/3/uL (0.21-1.20); NEUTROPHILS 66.9 %; NEUTROPHILS ABSOLUTE 2.85 10/3/uL (2.02-8.40); PLATELET COUNT 109 10/3/uL (150-400); RBC DISTRIBUTION WIDTH 13.9 % (12.0-16.0); RED CELL COUNT 2.61 10/6/uL (4.0-5.6); WHITE BLOOD CELLS 4.3 10/3/uL (4.5-10.5)
[2017-02-24 06:12] LABS: MANUAL DIFF NO %
[2017-02-24 06:15] LABS: INTERNATIONAL NORMAL RATI 1.6 UNITS (-); PROTIME (NOT ORD) 18.5 SEC (12.0-14.5)
[2017-02-24 06:22] LABS: ALBUMIN 2.5 G/DL (3.5-5.0); BUN (BLOOD UREA NITROGEN) 21 MG/DL (6-23); CALCIUM, SERUM 9.2 MG/DL (8.5-10.4); CHLORIDE, SERUM 100 MMOL/L (96-112); CREATININE 0.99 MG/DL (0.55-1.02); DIRECT BILIRUBIN 0.2 MG/DL (0.0-0.4); GFR AFRICAN AMERICAN 67 ML/MIN (>=60); GFR NON AFRICAN AMERICAN 58 ML/MIN (>=60); GLUCOSE, SERUM 100 MG/DL (60-99); POTASSIUM, SERUM 3.9 MMOL/L (3.5-5.3); SGOT(AST) 22 U/L (5-40); SGPT(ALT) 11 U/L (5-65); SODIUM, SERUM 144 MMOL/L (135-148); TOTAL PROTEIN 5.4 G/DL (6.0-8.5)
[2017-02-24 06:30] LABS: ALKALINE PHOSPHATASE 63 U/L (45-117); CO2 (CARBON DIOXIDE) 42 MMOL/L (24-34); INDIRECT BILIRUBIN(NOT ORDER) 0.4 MG/DL (0.1-0.9); PHOSPHORUS, SERUM 3.4 MG/DL (2.5-4.5); TOTAL BILIRUBIN 0.6 MG/DL (0-1.2)
[2017-02-24 15:49] LABS: HEMATOCRIT 26.2 % (36.0-48.0); HEMOGLOBIN 8.2 g/dL (12.0-16.0)
[2017-02-25 04:49] LABS: BASOPHILS 0.6 %; BASOPHILS ABSOLUTE 0.03 10/3/uL (0.0-0.16); EOSINOPHILS 2.3 %; EOSINOPHILS ABSOLUTE 0.11 10/3/uL (0.0-0.53); HEMATOCRIT 27.9 % (36.0-48.0); HEMOGLOBIN 8.5 g/dL (12.0-16.0); IMMATURE GRANULOCYTES 0.2 %; IMMATURE GRANULOCYTES ABSOLUTE 0.01 10/3/uL (0.0-0.11); LYMPHOCYTES 14.2 %; LYMPHOCYTES ABSOLUTE 0.69 10/3/uL (0.67-4.30); MEAN CORPUS HGB CONC 30.5 g/dL (32.0-36.0); MEAN CORPUSCULAR HEMOGLOB 30.6 pg (26.0-34.0); MEAN CORPUSCULAR VOLUME 100.4 fL (80-100); MEAN PLATELET VOLUME 10.6 fL (9.2-13.0); MONOCYTES 13.2 %; MONOCYTES ABSOLUTE 0.64 10/3/uL (0.21-1.20); NEUTROPHILS 69.5 %; NEUTROPHILS ABSOLUTE 3.37 10/3/uL (2.02-8.40); PLATELET COUNT 115 10/3/uL (150-400); RBC DISTRIBUTION WIDTH 13.9 % (12.0-16.0); RED CELL COUNT 2.78 10/6/uL (4.0-5.6); WHITE BLOOD CELLS 4.9 10/3/uL (4.5-10.5)
[2017-02-25 04:51] LABS: MANUAL DIFF NO %
[2017-02-25 05:00] LABS: PARTIAL THROMBO TIME 35.1 SEC (22.5-37.2)
[2017-02-25 05:01] LABS: ALBUMIN 2.7 G/DL (3.5-5.0); BUN (BLOOD UREA NITROGEN) 19 MG/DL (6-23); CALCIUM, SERUM 9.1 MG/DL (8.5-10.4); CHLORIDE, SERUM 99 MMOL/L (96-112); CREATININE 0.94 MG/DL (0.55-1.02); GFR AFRICAN AMERICAN 72 ML/MIN (>=60); GFR NON AFRICAN AMERICAN 62 ML/MIN (>=60); PHOSPHORUS, SERUM 2.5 MG/DL (2.5-4.5); POTASSIUM, SERUM 3.4 MMOL/L (3.5-5.3); SODIUM, SERUM 142 MMOL/L (135-148)
[2017-02-25 05:02] LABS: CO2 (CARBON DIOXIDE) 37 MMOL/L (24-34); GLUCOSE, SERUM 78 MG/DL (60-99)
[2017-02-26 06:49] LABS: BASOPHILS 0.6 %; BASOPHILS ABSOLUTE 0.03 10/3/uL (0.0-0.16); EOSINOPHILS 2.4 %; EOSINOPHILS ABSOLUTE 0.11 10/3/uL (0.0-0.53); HEMATOCRIT 27.2 % (36.0-48.0); HEMOGLOBIN 8.4 g/dL (12.0-16.0); IMMATURE GRANULOCYTES 0.6 %; IMMATURE GRANULOCYTES ABSOLUTE 0.03 10/3/uL (0.0-0.11); LYMPHOCYTES 16.5 %; LYMPHOCYTES ABSOLUTE 0.77 10/3/uL (0.67-4.30); MEAN CORPUS HGB CONC 30.9 g/dL (32.0-36.0); MEAN CORPUSCULAR HEMOGLOB 30.5 pg (26.0-34.0); MEAN CORPUSCULAR VOLUME 98.9 fL (80-100); MEAN PLATELET VOLUME 10.5 fL (9.2-13.0); MONOCYTES 9.2 %; MONOCYTES ABSOLUTE 0.43 10/3/uL (0.21-1.20); NEUTROPHILS 70.7 %; PLATELET COUNT 105 10/3/uL (150-400); RBC DISTRIBUTION WIDTH 13.9 % (12.0-16.0); RED CELL COUNT 2.75 10/6/uL (4.0-5.6); WHITE BLOOD CELLS 4.7 10/3/uL (4.5-10.5)
[2017-02-26 07:00] LABS: ALBUMIN 2.6 G/DL (3.5-5.0); BUN (BLOOD UREA NITROGEN) 16 MG/DL (6-23); CHLORIDE, SERUM 101 MMOL/L (96-112); CO2 (CARBON DIOXIDE) 35 MMOL/L (24-34); CREATININE 0.93 MG/DL (0.55-1.02); GFR AFRICAN AMERICAN 73 ML/MIN (>=60); GFR NON AFRICAN AMERICAN 63 ML/MIN (>=60); GLUCOSE, SERUM 115 MG/DL (60-99); PHOSPHORUS, SERUM 2.5 MG/DL (2.5-4.5); POTASSIUM, SERUM 3.5 MMOL/L (3.5-5.3); SODIUM, SERUM 143 MMOL/L (135-148)
[2017-02-26 07:03] LABS: MANUAL DIFF NO %
[2017-02-27 06:03] LABS: BASOPHILS 0.8 %; BASOPHILS ABSOLUTE 0.03 10/3/uL (0.0-0.16); EOSINOPHILS 2.3 %; EOSINOPHILS ABSOLUTE 0.09 10/3/uL (0.0-0.53); HEMATOCRIT 25.7 % (36.0-48.0); IMMATURE GRANULOCYTES 0.3 %; IMMATURE GRANULOCYTES ABSOLUTE 0.01 10/3/uL (0.0-0.11); LYMPHOCYTES 12.2 %; LYMPHOCYTES ABSOLUTE 0.47 10/3/uL (0.67-4.30); MEAN CORPUS HGB CONC 31.1 g/dL (32.0-36.0); MEAN CORPUSCULAR HEMOGLOB 30.7 pg (26.0-34.0); MEAN CORPUSCULAR VOLUME 98.5 fL (80-100); MEAN PLATELET VOLUME 10.5 fL (9.2-13.0); MONOCYTES 12.2 %; MONOCYTES ABSOLUTE 0.47 10/3/uL (0.21-1.20); NEUTROPHILS 72.2 %; NEUTROPHILS ABSOLUTE 2.79 10/3/uL (2.02-8.40); PLATELET COUNT 86 10/3/uL (150-400); RBC DISTRIBUTION WIDTH 13.9 % (12.0-16.0); RED CELL COUNT 2.61 10/6/uL (4.0-5.6); WHITE BLOOD CELLS 3.9 10/3/uL (4.5-10.5)
[2017-02-27 06:04] LABS: BUN (BLOOD UREA NITROGEN) 19 MG/DL (6-23); CHLORIDE, SERUM 101 MMOL/L (96-112); CO2 (CARBON DIOXIDE) 39 MMOL/L (24-34); CREATININE 1.02 MG/DL (0.55-1.02); GFR AFRICAN AMERICAN 65 ML/MIN (>=60); GFR NON AFRICAN AMERICAN 56 ML/MIN (>=60); GLUCOSE, SERUM 135 MG/DL (60-99); PHOSPHORUS, SERUM 3.1 MG/DL (2.5-4.5); SODIUM, SERUM 144 MMOL/L (135-148)
[2017-02-27 06:05] LABS: MANUAL DIFF NO %
[2017-02-28 04:40] LABS: BASOPHILS 0.8 %; BASOPHILS ABSOLUTE 0.03 10/3/uL (0.0-0.16); EOSINOPHILS 2.2 %; EOSINOPHILS ABSOLUTE 0.08 10/3/uL (0.0-0.53); HEMATOCRIT 25.4 % (36.0-48.0); HEMOGLOBIN 7.9 g/dL (12.0-16.0); IMMATURE GRANULOCYTES 0.3 %; IMMATURE GRANULOCYTES ABSOLUTE 0.01 10/3/uL (0.0-0.11); LYMPHOCYTES 15.6 %; LYMPHOCYTES ABSOLUTE 0.56 10/3/uL (0.67-4.30); MEAN CORPUS HGB CONC 31.1 g/dL (32.0-36.0); MEAN CORPUSCULAR HEMOGLOB 30.5 pg (26.0-34.0); MEAN CORPUSCULAR VOLUME 98.1 fL (80-100); MEAN PLATELET VOLUME 10.6 fL (9.2-13.0); MONOCYTES 8.3 %; NEUTROPHILS 72.8 %; NEUTROPHILS ABSOLUTE 2.62 10/3/uL (2.02-8.40); PLATELET COUNT 83 10/3/uL (150-400); RED CELL COUNT 2.59 10/6/uL (4.0-5.6); WHITE BLOOD CELLS 3.6 10/3/uL (4.5-10.5)
[2017-02-28 04:41] LABS: MANUAL DIFF NO %
[2017-02-28 04:50] LABS: BUN (BLOOD UREA NITROGEN) 17 MG/DL (6-23); CALCIUM, SERUM 8.9 MG/DL (8.5-10.4); CHLORIDE, SERUM 101 MMOL/L (96-112); CO2 (CARBON DIOXIDE) 36 MMOL/L (24-34); GFR AFRICAN AMERICAN 67 ML/MIN (>=60); GFR NON AFRICAN AMERICAN 57 ML/MIN (>=60); GLUCOSE, SERUM 117 MG/DL (60-99); POTASSIUM, SERUM 3.5 MMOL/L (3.5-5.3); SODIUM, SERUM 143 MMOL/L (135-148)
[2017-02-28] MEDS ORDERED: CELEXA20 PO (10:52)
[2017-02-28] MEDS ORDERED: FESO4 PO (10:53)
[2017-02-28] MEDS ORDERED: MIRALAX POWDER1 PKT PO (10:57)
[2017-02-28] MEDS ORDERED: PROCTOCORT TOP (10:59)
[2017-05-07] MEDS ORDERED: TANZEUM 30 MG SC (23:05)
[2017-05-07] MEDS ORDERED: LOP25 PO (23:06)
[2017-05-07] MEDS ORDERED: LEVEMFLXPN SC (23:06)
[2017-05-07] MEDS ORDERED: NOVOPEN SC (23:07)
[2017-05-07] MEDS ORDERED: K-TABS10 MEQ PO (23:08)
[2017-05-07] MEDS ORDERED: BONIVA150 MG PO (23:08)
[2017-05-07] MEDS ORDERED: MSCONTIN PO (23:08)
[2017-05-07] MEDS ORDERED: CRESTOR5 MG PO (23:09)
[2017-05-07] MEDS ORDERED: NEUR300 PO (23:09)
[2017-05-07] MEDS ORDERED: MIRALAX POWDER1 PKT PO (23:09)
[2017-05-07] MEDS ORDERED: BUM1 PO (23:09)
[2017-05-07] MEDS ORDERED: PACERONE200 MG PO (23:09)
[2017-05-07] MEDS ORDERED: CELEXA20 PO (23:09)
[2017-05-07] MEDS ORDERED: ASAB PO (23:10)
[2017-05-07] MEDS ORDERED: FERROUS SULF325 M1 PO (23:10)
[2017-05-07] MEDS ORDERED: ELIQUIS 5 MG TAB5 MG PO (23:10)
[2017-05-07] MEDS ORDERED: SPIRIVA INH (23:10)
[2017-05-07] MEDS ORDERED: VITAMIN D31000 UNIT PO (23:10)
[2017-05-07] MEDS ORDERED: ALBUTEROL0.083 % INH (23:11)
[2017-05-15] MEDS ORDERED: BUM2 PO (14:34)
[2017-05-15] MEDS ORDERED: BUM1 PO (14:36)
[2017-05-15] MEDS ORDERED: KLOR-CON20 MEQ PO (14:38)
[2017-05-26] MEDS ORDERED: NORCO1 TA1 PO (09:36)
== END 2017-02-28 13:57 | disposition home health service (06) | DRG 292 ==
LOC: ER 02:36 → CDU1 05:00 → CDU2 05:18 → 6NO 02-21 16:51
PROVIDERS: Hospitalist; Internal Medicine; Internal Medicine Gastroenterology; Specialist
PROC: 0DB68ZX Excision of Stomach, Via Natural or Artificial Opening Endoscopic, Diagnostic (ICD-10-PCS; 2017-02-25)
PROC: 0DB98ZX Excision of Duodenum, Via Natural or Artificial Opening Endoscopic, Diagnostic (ICD-10-PCS; 2017-02-25)
PROC: 0DB78ZX Excision of Stomach, Pylorus, Via Natural or Artificial Opening Endoscopic, Diagnostic (ICD-10-PCS; 2017-02-25)
PROC: 0DBL8ZX Excision of Transverse Colon, Via Natural or Artificial Opening Endoscopic, Diagnostic (ICD-10-PCS; principal; 2017-02-25 09:59)
PROC: 0DBN8ZX Excision of Sigmoid Colon, Via Natural or Artificial Opening Endoscopic, Diagnostic (ICD-10-PCS; 2017-02-25 09:59)
DX: I11.0 Hypertensive heart disease with heart failure (principal); J96.11 Chronic respiratory failure with hypoxia; I47.2 Ventricular tachycardia; D69.6 Thrombocytopenia, unspecified; D62 Acute posthemorrhagic anemia; E66.2 Morbid (severe) obesity with alveolar hypoventilation; Z68.41 Body mass index [BMI] 40.0-44.9, adult; I47.1 Supraventricular tachycardia; I50.23 Acute on chronic systolic (congestive) heart failure; J44.9 Chronic obstructive pulmonary disease, unspecified; K64.1 Second degree hemorrhoids; E87.6 Hypokalemia; E11.9 Type 2 diabetes mellitus without complications; K29.70 Gastritis, unspecified, without bleeding; D12.5 Benign neoplasm of sigmoid colon; D12.3 Benign neoplasm of transverse colon; I48.0 Paroxysmal atrial fibrillation; Z99.81 Dependence on supplemental oxygen; I25.5 Ischemic cardiomyopathy; K74.60 Unspecified cirrhosis of liver; Z85.3 Personal history of malignant neoplasm of breast; G47.33 Obstructive sleep apnea (adult) (pediatric); I25.10 Atherosclerotic heart disease of native coronary artery without angina pectoris; Z79.4 Long term (current) use of insulin; Z79.02 Long term (current) use of antithrombotics/antiplatelets; Z95.1 Presence of aortocoronary bypass graft; Z95.810 Presence of automatic (implantable) cardiac defibrillator; Z90.11 Acquired absence of right breast and nipple; Z79.82 Long term (current) use of aspirin; Z86.718 Personal history of other venous thrombosis and embolism; Z88.2 Allergy status to sulfonamides; Z91.048 Other nonmedicinal substance allergy status; Z91.040 Latex allergy status; Z79.891 Long term (current) use of opiate analgesic; Z86.73 Personal history of transient ischemic attack (TIA), and cerebral infarction without residual deficits
CPT/HCPCS: 36600; 71010; 80048; 80069; 80076; 82272; 82550; 82553; 82607; 82728; 82746; 82805; 82962; 83540; 83550; 83735; 83880; 84100; 84132; 84443; 84484; 85014; 85018; 85025; 85045; 85610; 85730; 88305; 93005; 93970; 94762; 97110-GP; 97112-GO; 97116-GP; 97162-GP; 97165-GO; 97535-GO; 99285; A9270-GY; G8978-CI-GP; G8979-CH-GP; G8987-CK-GO; G8988-CJ-GO; J2370

== ENCOUNTER 2017-04-06 17:41 | Inpatient (IN) | payer MEDICARE, OTHER ==
--- NOTE | ~2017-04-06 | HP ---
History And Physical [id number] [place]. [address] NAME: SANTIAGO PERALTA : 46 STATUS : ADM IN PAT#: [id number] AGE: 67 ADM/REG DATE : 04/06/17 MR#: [id number] REPORT SERV DATE: 04/07/17 DICTATED BY: VAUGHN CHAPMAN DATE: 04/06/17 REPORT STATUS : Draft TRANSCRIBED BY: MODL DATE: 04/06/17 DATE OF ADMISSION: 04/06/2017 CHIEF COMPLAINT: Shortness of breath, low oxygen levels. HISTORY OF PRESENT ILLNESS: This is a 67-year-old female with a history of chronic systolic heart failure with preserved ejection fraction; history of atrial fibrillation; morbid obesity; obstructive sleep apnea, noncompliant with CPAP; history of chronic respiratory failure, who presents to the emergency room at [facility], with the above-mentioned complaint. History is obtained mainly from the patient's , who is at bedside, and reviewing data available on the [employer] system. According to Mr. Peralta, his , who had been in her usual state of health until last night, she had been lying in bed next to him reading as she always does. He then noticed that she had some difficulty breathing and made sure her oxygen was hooked up properly. She is on chronic 3 L flow of oxygen. This morning, she was hard to arouse and when he checked the oxygen level with a pulse oximeter that they have, it was down to the 70s. He once again readjusted the oxygen levels and despite flow of 3 L/minute, which she is on, her oxygen saturations only could come up to 82% to 84%. He called the [facility] and they advised him to take her to the emergency room for evaluation. During this time, he does not believe she had any fevers, chills, cough, or any other symptoms. She has not had any falls or loss of consciousness, has been compliant with all her medications although she has not been using her CPAP for quite a while now. In the emergency room, initial workup revealed she was hypotensive and persistently hypotensive during the duration she has been here in the ER. She also had hwnbw-lo-zkhkfjy respiratory failure along with volume overload. Chest x-ray showed pulmonary edema as well and she was started on noninvasive ventilatory support with a BiPAP. Since then, her pCO2's have come down gradually, and Hospitalist Service is asked to admit her for further evaluation and treatment. At the time of my evaluation, Ms. Peralta was not very responsive. She was on a BiPAP and somnolent, but arousable with sternal rub. Most of the review of systems was obtained from the patient's . She had not complained of any chest pain or palpitations recently. She did not have any new orthopnea. She has not had any cough, hemoptysis, night sweats, or weight loss. She has not had any falls or loss of consciousness. No history of recent fevers, chills, nausea, vomiting, or aspiration. No history of hematemesis, hematochezia, or hematuria, although patient's says she has been having some dark stools of late. She is also on iron supplementation. No other history of recent travel or exposures other than those mentioned above. PAST MEDICAL HISTORY: Significant for history of chronic systolic congestive heart failure with a preserved ejection fraction of 50% to 55%; history of ischemic cardiomyopathy; History And Physical [address] [address] NAME: SANTIAGO PERALTA : 46 STATUS : ADM IN [facility]#: [id number] AGE: 67 ADM/REG DATE : 04/06/17 MR#: [id number] REPORT SERV DATE: 04/07/17 DICTATED BY: VAUGHN CHAPMAN DATE: 04/06/17 REPORT STATUS : Draft TRANSCRIBED BY: MODPaulette DATE: 04/06/17 history of atrial fibrillation, on Eliquis; insulin-dependent diabetes mellitus type 2; chronic thrombocytopenia; anemia; history of DVT, on Eliquis; morbid obesity; history of hepatic cirrhosis; breast cancer, status post mastectomy; and a history of ventricular tachycardia requiring cardioversion. Again as mentioned above, she has obstructive sleep apnea, but noncompliant with CPAP and is on continuous supplemental oxygen at 3 L/minute. SOCIAL HISTORY: She does not smoke, drink, or use recreational drugs at this time. FAMILY HISTORY: Noncontributory. MEDICATIONS: Her medications at home were reviewed by me in the chart today and reordered by me. REVIEW OF SYSTEMS: As in history of present illness. All other systems were reviewed in detail and are quite unremarkable. PHYSICAL EXAMINATION: GENERAL: This is a 67-year-old, not in any acute distress. She is on BiPAP and encephalopathic at this time. HEENT: Her head appears to be atraumatic, normocephalic. She is not awake, alert, or oriented to time, place, and person. Her pupils are equal, reacting to light and accommodating. External ocular muscles are intact. Membranes are moist and pink. Sclerae are nonicteric. NECK: Supple with no jugular venous distention, lymphadenopathy, or thyromegaly. LUNGS: Clear to auscultation with no wheezes, rubs, or crackles. HEART: Heart sounds were regular with no murmurs, rubs, or gallops. ABDOMEN: Soft, nontender. Bowel sounds are present. EXTREMITIES: Showed no cyanosis, clubbing, or edema. NEUROLOGIC: Grossly intact, but she was encephalopathic at this time and not following any commands. VITAL SIGNS: Her vital signs today showed a temperature of 97.6, pulse 76, respirations 14 a minute, blood pressure was 93/46 at the time of my evaluation. When she arrived, her blood pressure was 117/69, oxygen saturations were 92% on 4 L via nasal cannula. LABORATORY DATA: Reviewed on the [employer] system showed a pH of 7.27, pCO2 was 83, PaO2 of 80, and bicarb was 37.6. This was on 4 L of oxygen via nasal cannula. CMP showed a sodium of 142, potassium was 3.2, chloride 100, and CO2 38. BUN was 21 with a creatinine of 1.34 and glucose was 103. Her magnesium was 1.9 today, calcium 8.5. AST and ALT were within normal limits along with alkaline phosphatase. Troponin I was 0.04 and BNP was elevated at 606.5. This had doubled since her last admission here. Her lactate was 0.8. CBC revealed a white blood cell count of 7700, hemoglobin was 8.7, hematocrit 28.8, and platelet count was 109,000. Her hemoglobin and hematocrit are about the baseline. Her prothrombin time today was 22.3 with an INR of 2.0. Urinalysis showed trace leukocyte esterase, nitrite was negative. There were 25 wbc's and occasional bacteria. Films of the chest x-ray were reviewed by me on the PACS today and History And Physical [address] [place]. [address] NAME: SANTIAGO PERALTA : 46 STATUS : ADM IN PAT#: [id number] AGE: 67 ADM/REG DATE : 04/06/17 MR#: [id number] REPORT SERV DATE: 04/07/17 DICTATED BY: VAUGHN CHAPMAN DATE: 04/06/17 REPORT STATUS : Draft TRANSCRIBED BY: MODL DATE: 04/06/17 interpreted by me. Today's films were compared to prior films available on the PACS as well. Per my interpretation, there is prior sternotomy. There is cardiomegaly. There is AICD in the left chest. There is bilateral pulmonary edema without any pleural effusions. CT of the brain and CTA of the chest are pending. A 12-lead EKG done in the emergency room was reviewed and interpreted by me. There is normal sinus rhythm at a rate of [address] changes. IMPRESSION: 1. Shortness of breath. 2. Acute on chronic respiratory failure. 3. Chronic obstructive pulmonary disease with acute exacerbation. 4. Volume overload. 5. Hypotension. 6. Feqeg-ey-poukfnr systolic congestive heart failure. 7. Atrial fibrillation, on Eliquis. 8. Diabetes mellitus type 2. 9. Ischemic cardiomyopathy. 10.Chronic thrombocytopenia. 11.Anemia. 12.History of deep vein thrombosis, on Eliquis. 13.Morbid obesity. 14.Hepatic cirrhosis. 15.Breast cancer, status post mastectomy. 16.Obstructive sleep apnea, noncompliant with CPAP therapy. PLAN: We will admit Ms. Peralta to the Medical Intermediate Care Unit under Hospitalist Service for continuous noninvasive ventilatory support with a BiPAP. BiPAP settings were adjusted for the latest arterial blood gas obtained. For her persistent hypotension, we have to be cautious with fluids due to her pulmonary edema and congestive heart failure. We will start her on Levophed infusion right away, titrate up to mean arterial pressure greater than 65 mmHg. We will go ahead and maximize her bronchodilator treatments, continue supplemental oxygen therapy as well. We would prefer a central line to be placed, but she is on Eliquis and we will hold off on this. We will try to accomplish this with a peripheral line. We will also place a Campbell catheter and use Lasix if her pressures could tolerate that and follow her daily weights and outputs. We will get an echocardiogram in the morning as well and follow serial troponins to rule out any acute coronary syndrome. She is in normal sinus rhythm at this time. We will continue to monitor and continue her Eliquis at this time. For blood sugar control, we will start her on NovoLog insulin per sliding scale and check her A1c. We will also check her random cortisol level and thyroid function as well. We will get a CBC in the morning and follow her platelets as well. Her CTA of the chest and CT of the head are pending, and will be accomplished after the patient is stabilized a little bit. We will follow up on this. Please see today's orders for all the details. I have discussed the above plans with the patient's . Questions were answered and she is agreeable to the above recommendations. She is a full code. Hospitalist Service will be following her during her stay here. Total time spent with the patient and the family, critical care time will be 40 minutes. History And Physical [address] [address] NAME: SANTIAGO PERALTA : 46 STATUS : ADM IN PAT#: [id number] AGE: 67 ADM/REG DATE : 04/06/17 MR#: [id number] REPORT SERV DATE: 04/07/17 DICTATED BY: VAUGHN CHAPMAN DATE: 04/06/17 REPORT STATUS : Draft TRANSCRIBED BY: ERI DATE: 04/06/17 /ERI Vaughn Chapman M.D. / [id number] CC: Mary Mcgee M.D.
--- NOTE | ~2017-04-06 | CN ---
Consultation Report [facility] [address] [place]. [address] NAME: SANTIAGO PERALTA : 46 STATUS : ADM IN PAT#: [id number] AGE: 67 ADM/REG DATE : 04/06/17 MR#: [id number] REPORT SERV DATE: 04/10/17 DICTATED BY: REJI HUMPHREY IV DATE: 04/09/17 REPORT STATUS : Draft TRANSCRIBED BY: ERI DATE: 04/09/17 PULMONARY CONSULTATION DATE OF CONSULTATION: 04/09/2017 REASON FOR REQUEST: Hypercapnia and obstructive sleep apnea, noncompliant with CPAP. HISTORY OF PRESENT ILLNESS: History was obtained from the records and from the patient. Ms. Peralta is a 67-year-old female with a history of paroxysmal atrial fibrillation, diastolic heart failure, obesity hypoventilation syndrome with hypercapnia, obstructive sleep apnea, noncompliant with CPAP, QUISPE with cirrhosis, history of ventricular tachycardia with an AICD, remote breast cancer, remote DVT, coronary artery disease, who is admitted with nocturnal hypoxemia, shortness of breath, and hypercapnia. The patient reportedly stays up late with her and reads. She had fallen asleep and attempted to awaken her and was unsuccessful. He checked her oxygen saturations, which were supposedly in the 70s. He readjusted her supplemental oxygen and increased the flow with oxygen saturations improving into the high 80s. He brought her to the emergency room where she was found to be hypercapnic and initially less responsive. She has intermittently been on BiPAP though has not used in the last 36 hours. There has been several outpatient overnight oximetry. She is on supplemental oxygen documenting abrupt drops in the oxygen saturations, most likely secondary to positional hypoventilation. The patient was diagnosed with sleep apnea more than five years ago and was only transiently compliant with CPAP therapy. She has been tried on several bronchodilator medications as an outpatient with some clinical concern for small airways disease/asthma, though she is currently on Spiriva, which she uses daily. She has an occasional dry and nonproductive cough. She denies any fevers, chills, sweats, or hemoptysis. The patient has a very limited exercise tolerance with dyspnea on exertion. PULMONARY HISTORY: Remarkable for no history of childhood asthma. She does carry the diagnosis of possible adult small airways disease. There is no history of pneumonia. She is a lifelong nonsmoker and secondary smoke exposure from her aunt. She is up-to-date on the pneumococcal vaccinations as well as the seasonal influenza vaccine. PAST MEDICAL HISTORY: Remarkable for: 1. Paroxysmal atrial fibrillation. 2. Diastolic heart failure with a recent ejection fraction of 55%. 3. Obesity hypoventilation syndrome with previous ABGs demonstrating hypercapnia. 4. Obstructive sleep apnea, noncompliant with CPAP. 5. Nonalcoholic steatohepatitis with cirrhosis. 6. History of ventricular tachycardia. 7. Remote breast cancer. 8. Remote deep venous thrombosis. 9. Coronary artery disease. Consultation Report [id number] [place]. [address] NAME: SANTIAGO PERALTA : 46 STATUS : ADM IN [facility]#: [id number] AGE: 67 ADM/REG DATE : 04/06/17 MR#: [id number] REPORT SERV DATE: 04/10/17 DICTATED BY: REJI HUMPHREY IV DATE: 04/09/17 REPORT STATUS : Draft TRANSCRIBED BY: ERI DATE: 04/09/17 SURGERIES: 1. The patient underwent coronary bypass grafting. 2. AICD insertion. 3. Appendectomy. 4. Abdominal surgeries. 5. Right mastectomy. 6. Left wrist surgery. 7. Exploratory laparotomies. ALLERGIES: INCLUDE HOUSE DUST, ADHESIVE TAPE, LATEX, AND SULFA DRUGS. CURRENT MEDICATIONS: The patient is on aspirin 81 mg daily, Bumex 1 mg twice a day, Celexa 20 mg daily, Cordarone 200 mg daily, Eliquis 5 mg twice a day, Levemir 10 units at bedtime, Lipitor 10 mg at bedtime, MS Contin 30 mg twice a day, Neurontin mg twice a day, insulin sliding scale level 2, Proventil 4 times a day, and Spiriva 1 capsule daily. SOCIAL HISTORY: Remarkable for no tobacco, alcohol, or illicit drug use. She is . Lives with her . FAMILY HISTORY: Both parents of cardiac disease. REVIEW OF SYSTEMS: 14-systems were reviewed and pertinent positives as noted above. PHYSICAL EXAMINATION: GENERAL: This is an obese, elderly female, in no distress, however, with a definite tremor of her predominantly right arm and face. VITAL SIGNS: Temperature is 97.8, pulse is 82, respiratory rate is 18, saturation 96% on 3 L, and blood pressure 141/62. HEENT: The patient is normocephalic, atraumatic. Extraocular movements are intact. Pupils react to light. Sclerae and conjunctivae normal. She has a nasal cannula in place. She has a Mallampati III to IV airway with significant narrowing of the posterior pharyngeal space. NECK: Without any palpable lymphadenopathy or thyromegaly. CHEST: The patient has a sternotomy scar. She has an AICD in her left upper chest. She has decreased breath sounds symmetrically with a relatively normal expiratory phase. There are some dry bibasilar inspiratory crackles. No wheezes or rhonchi noted. CARDIOVASCULAR: Jugular venous pulsations are at the angle of jaw on the supine position. She has 2+ carotid upstrokes with right greater than left bruit. She has a distant regular S1, S2 with a 2/6 systolic murmur at the right upper sternal border. No clear S3 is noted. Peripheral pulses are diminished. ABDOMEN: Obese, soft, and nontender. There are hypoactive bowel sounds. There is no palpable hepatosplenomegaly or mass. Surgical scars noted. EXTREMITIES: Demonstrate 2+ pitting edema on the left with trace pitting edema on the right with chronic venous stasis changes of the left lower extremity. Consultation Report [address] [place]. [address] NAME: SANTIAGO PERALTA : 46 STATUS : ADM IN [facility]#: [id number] AGE: 67 ADM/REG DATE : 04/06/17 MR#: [id number] REPORT SERV DATE: 04/10/17 DICTATED BY: REJI HUMPHREY IV DATE: 04/09/17 REPORT STATUS : Draft TRANSCRIBED BY: MODPaulette DATE: 04/09/17 NEUROLOGIC: The patient moves all extremities. Strength is 5-/5 and sensation intact to light touch. She does have the tremors noted. LABORATORY DATA: Chest x-ray demonstrates postoperative changes consistent with coronary artery bypass grafting. There is hypoventilatory effort. There is vascular crowding and vascular prominence consistent with pulmonary venous congestion. No focal infiltrate is noted. Most recent CBC on 04/07/2017: Hemoglobin 8.2, hematocrit 27.4 , platelet count was 78,000, and white blood cell count is 3.1. Chemistries from today: Sodium is 142, potassium 4.3, chloride 102, bicarbonate 36, BUN 25, creatinine 0.98, and glucose of 186. Most recent blood gas pH 7.36, pCO2 of 65, pO2 of 82 on BiPAP. ASSESSMENT AND PLAN: 1. Respiratory. There is no evidence for chronic obstructive pulmonary disease with previous pulmonary function studies demonstrating restrictive finding with FEV1 in the high 40% range. We will initiate treatment for asthma, though I questioned this diagnosis as well. The patient likely has nocturnal hypoventilation contributed by medications to include her chronic narcotic use. The patient needs a repeat outpatient evaluation with Dr. Yuan and then likely BiPAP titration. Oxygen will be provided as needed to keep sats greater than 90 to 94% as she does have persistent nocturnal desaturations. We will add Dulera two puffs twice a day or current regimen . Chest x- ray will be obtained tomorrow. 2. Cardiovascular. The patient does have the vascular congestion on chest x-ray with elevated BNP, so we diurese as tolerated. 3. Neurologic. I would avoid respiratory suppressant drugs as much as possible. The patient does have this progressive tremor and may benefit from a neurology evaluation while here. Thank you for consulting us. We will follow the patient with you. STIVEN/MODL Reji Humphrey IV, M.D. / [id number] CC: Mirza Song M.D. UNKNOWN
--- NOTE | ~2017-04-06 | DS ---
Discharge Summary [facility] [address] [place]. [address] NAME: SANTIAGO PERALTA : 46 STATUS : DIS IN PAT#: [id number] AGE: 67 ADM/REG DATE : 04/06/17 MR#: [id number] REPORT SERV DATE: 04/16/17 DICTATED BY: DANITA BACH DATE: 04/11/17 REPORT STATUS : Draft TRANSCRIBED BY: MODL DATE: 04/11/17 ADMISSION DATE: 04/06/2017 DISCHARGE DATE: 04/11/2017 PRIMARY CARE PHYSICIAN: Brittany Dobson PA-C SLEEP SPECIALIST: Piyush Yuan M.D., F.C.C.P. VALIDATION SPECIALIST: Elton Bridges MD. OUTPATIENT SCREEN MAKING SUPERVISOR: Cris Hussein M.D. CONSULTING PHYSICIAN: Dr. Humphrey for Pulmonary. FINAL DIAGNOSES: 1. Acute on chronic hypoxic and hypercapnic respiratory failure. 2. Acute on chronic systolic congestive heart failure. 3. Obesity hypoventilation syndrome and obstructive sleep apnea. 4. Atrial fibrillation with permanent pacemaker. 5. Diabetes. 6. History of cirrhosis. 7. Tremors. 8. Morbid obesity. 9. Chronic pain, on chronic narcotics. 10.Status post hypokalemia. 11.Chronic mild pancytopenia. DIAGNOSTIC EXAMS: Chest x-ray showing continued venous congestion, low lung volumes with left basilar atelectasis/consolidation, status post CABG and AICD placement. Echocardiogram showing normal ventricular systolic function with EF of 55%. Normal right ventricular chamber size and systolic function. No significant valvular regurgitation or stenosis. Repeat chest x-ray showing shallow inspiration, no acute cardiopulmonary abnormality. HOSPITAL COURSE: Please refer to the H and P done by Dr. Barker, dated on 04/06/2017. Briefly, this is a 67-year-old female with CHF, AFib, OHS, SHASHI, noncompliant with CPAP, on 3 L of oxygen all the time. Has chronic pain, on chronic narcotics. noted that she was difficult to arouse and has some desaturation despite on oxygen. She was then brought to the emergency room where she was found to have acute hypoxic respiratory failure. The patient got an ABG which shows a hypercapnic respiratory failure as well. The patient was admitted to the IMCU by Dr. Barker, placed on BiPAP and several of her medications were discontinued. The patient got better and was transferred out of the floor. The thinking was the patient probably got over-sedated with numerous pain and sedating medication and interfered with her sleep apnea. I got Pulmonary involved to see if we can get an emergent CPAP or BiPAP as the patient has been noncompliant with the CPAP and lost it. I would want her to have one, so that to avoid readmissions; however, we could not get that because of the restriction placed on it. The patient needs to have another sleep study in care of her Discharge Summary [address] [place]. [address] NAME: SANTIAGO PERALTA : 46 STATUS : DIS IN PAT#: [id number] AGE: 67 ADM/REG DATE : 04/06/17 MR#: [id number] REPORT SERV DATE: 04/16/17 DICTATED BY: DANITA BACH. DATE: 04/11/17 REPORT STATUS : Draft TRANSCRIBED BY: ERI DATE: 04/11/17 sleep specialist and then file for a new machine and mask. Meanwhile, she continued to do well and she has been having this tremors which have been going on for years. I am hesitant to start Mysoline because it could cause some hematologic abnormalities and she already has chronic mild pancytopenia and it also can cause drowsiness. I believe that she would need an outpatient neurological followup for this. The patient will now be discharged with the above diagnoses. She will follow up with her PCP, Brittany Dobson in a week's time; follow up with the sleep specialist, Dr. Yuan, already scheduled on 04/25/2017 at 10:30; follow up with Cardiology, Dr. Bridges; follow up with Dr. Hussein in four weeks. This has been explained to the patient and also to the yesterday and they agreed and understood the plan. I would defer the adjustment of the pain medications as this is contributing to her problem, but I would defer that to her and her PCP as she has been on it for years and hesitant to come off it. DICTATED BY: Vanessa Soliz/ERI Danita Bach M.D. / [id number] CC: Danita Bach M.D. [facility]
[~2017-04-06 17:41] MED LIST changes: +ALBUTEROL0.083 % INH; +CELEXA20 PO; +ELIQUIS 5 MG TAB5 MG PO; +FESO4 PO; +KDUR10 PO; +MIRALAX POWDER1 PKT PO; +PROCTOCORT TOP; +TANZEUM 30 MG SC
[2017-04-06 18:22] LABS: ALLENS TEST Pos; BE (BASE EXCESS) 8.7 MEQ/L (0 +/- 2.5); CARBOXYHEMOGLOBIN 2.1 % (0-3); DEVICE NC; HCO3 (ACTUAL BICARBONATE) 37.6 MEQ/L (23-27); HEMOBLOGIN CONTENT 9.5 G/DL (12-16); INSTRUMENT SERIAL # 8087; METHEMOGLOBIN 0.2 % (0-3); O2 CONTENT 12.2 VOL% (18-24); PCO2 (CO2 TENSION) 83 MMHG (35-45); PO2 (O2 TENSION) 80 MMHG (79-93); SAMPLE Arterial; pH 7.27 (7.37-7.43)
[2017-04-06 18:30] LABS: BASOPHILS 0.6 %; BASOPHILS ABSOLUTE 0.05 10/3/uL (0.0-0.16); EOSINOPHILS 2.1 %; EOSINOPHILS ABSOLUTE 0.16 10/3/uL (0.0-0.53); HEMATOCRIT 28.8 % (36.0-48.0); HEMOGLOBIN 8.7 g/dL (12.0-16.0); IMMATURE GRANULOCYTES 0.4 %; IMMATURE GRANULOCYTES ABSOLUTE 0.03 10/3/uL (0.0-0.11); LYMPHOCYTES 8.9 %; LYMPHOCYTES ABSOLUTE 0.69 10/3/uL (0.67-4.30); MEAN CORPUS HGB CONC 30.2 g/dL (32.0-36.0); MEAN CORPUSCULAR VOLUME 99.3 fL (80-100); MEAN PLATELET VOLUME 10.2 fL (9.2-13.0); MONOCYTES 5.8 %; MONOCYTES ABSOLUTE 0.45 10/3/uL (0.21-1.20); NEUTROPHILS 82.2 %; NEUTROPHILS ABSOLUTE 6.36 10/3/uL (2.02-8.40); PLATELET COUNT 109 10/3/uL (150-400); RBC DISTRIBUTION WIDTH 16.1 % (12.0-16.0); WHITE BLOOD CELLS 7.7 10/3/uL (4.5-10.5)
[2017-04-06 18:31] LABS: MANUAL DIFF NO %
[2017-04-06 18:39] LABS: PARTIAL THROMBO TIME 37.5 SEC (22.5-37.2); PROTIME (NOT ORD) 22.3 SEC (12.0-14.5)
[2017-04-06 18:45] LABS: ALBUMIN 2.8 G/DL (3.5-5.0); ALKALINE PHOSPHATASE 67 U/L (45-117); CALCIUM, SERUM 8.5 MG/DL (8.5-10.4); CHEST PAIN PROFILE TAT 0 Hrs 21 Mins; CHLORIDE, SERUM 100 MMOL/L (96-112); CO2 (CARBON DIOXIDE) 38 MMOL/L (24-34); CREATININE 1.34 MG/DL (0.55-1.02); DIRECT BILIRUBIN 0.2 MG/DL (0.0-0.4); GFR AFRICAN AMERICAN 47 ML/MIN (>=60); GFR NON AFRICAN AMERICAN 40 ML/MIN (>=60); GLUCOSE, SERUM 103 MG/DL (60-99); INDIRECT BILIRUBIN(NOT ORDER) 0.6 MG/DL (0.1-0.9); POTASSIUM, SERUM 3.2 MMOL/L (3.5-5.3); SGOT(AST) 32 U/L (5-40); SGPT(ALT) 16 U/L (5-65); SODIUM, SERUM 142 MMOL/L (135-148); TOTAL BILIRUBIN 0.8 MG/DL (0-1.2); TROPONIN I 0.04 NG/ML (<0.05)
[2017-04-06 18:46] LABS: BUN (BLOOD UREA NITROGEN) 21 MG/DL (6-23)
[2017-04-06 19:58] LABS: LACTATE 0.8 MMOL/L (0.3-2.4)
[2017-04-06 20:15] LABS: ALLENS TEST Pos; BIPAP 22/8 cm.H2O; CARBOXYHEMOGLOBIN 2.3 % (0-3); HCO3 (ACTUAL BICARBONATE) 36.5 MEQ/L (23-27); HEMOBLOGIN CONTENT 9.6 G/DL (12-16); INSTRUMENT SERIAL # 8087; METHEMOGLOBIN 0.2 % (0-3); O2 CONTENT 12.9 VOL% (18-24); OPERATOR ID 33449; PCO2 (CO2 TENSION) 79 MMHG (35-45); PO2 (O2 TENSION) 103 MMHG (79-93); SAMPLE Arterial; pH 7.28 (7.37-7.43)
[2017-04-06 20:20] LABS: ASCORBIC ACID (UR NOT ORDER) NEG (NEG); BILIRUBIN, URINE NEGATIVE (NEG); ER URINALYSIS TAT 0 Hrs 16 Mins; KETONE, URINE NEGATIVE (NEG); LEUKOCYTE ESTERASE(NOT OR TRACE (NEG); NITRITE (URINE) NEG (NEG); WBC (NOT ORDERED) (RFLEX) 25 (0-5)
[2017-04-06 20:55] LABS: D-DIMER QUANTITATIVE 0.37 ug/mLFEU (< 0.50)
[2017-04-06] MEDS ORDERED: VITAMIN D31000 UNIT PO (21:07)
[2017-04-06 21:15] LABS: BE (BASE EXCESS) 8.4 MEQ/L (0 +/- 2.5); CARBOXYHEMOGLOBIN 2.4 % (0-3); HCO3 (ACTUAL BICARBONATE) 36.2 MEQ/L (23-27); HEMOBLOGIN CONTENT 9.4 G/DL (12-16); INSTRUMENT SERIAL # 8087; METHEMOGLOBIN 0.3 % (0-3); PCO2 (CO2 TENSION) 72 MMHG (35-45); PO2 (O2 TENSION) 60 MMHG (79-93); pH 7.32 (7.37-7.43)
[2017-04-06 21:16] LABS: ALLENS TEST Pos; BIPAP 22/5 cm.H2O; OPERATOR ID 33449; SAMPLE Arterial
[2017-04-06 23:11] LABS: PROCALCITONIN <0.05 ng/mL (<0.5)
[2017-04-07 04:26] LABS: BASOPHILS 0 %; EOSINOPHILS 0 %; HEMATOCRIT 27.4 % (36.0-48.0); HEMOGLOBIN 8.2 g/dL (12.0-16.0); IMMATURE GRANULOCYTES 0.3 %; IMMATURE GRANULOCYTES ABSOLUTE 0.01 10/3/uL (0.0-0.11); LYMPHOCYTES 6.1 %; LYMPHOCYTES ABSOLUTE 0.19 10/3/uL (0.67-4.30); MEAN CORPUS HGB CONC 29.9 g/dL (32.0-36.0); MEAN CORPUSCULAR HEMOGLOB 29.6 pg (26.0-34.0); MEAN CORPUSCULAR VOLUME 98.9 fL (80-100); MEAN PLATELET VOLUME 10.5 fL (9.2-13.0); MONOCYTES 0.3 %; MONOCYTES ABSOLUTE 0.01 10/3/uL (0.21-1.20); NEUTROPHILS 93.3 %; PLATELET COUNT 78 10/3/uL (150-400); RBC DISTRIBUTION WIDTH 15.5 % (12.0-16.0); RED CELL COUNT 2.77 10/6/uL (4.0-5.6)
[2017-04-07 04:28] LABS: MANUAL DIFF NO %; WHITE BLOOD CELLS 3.1 10/3/uL (4.5-10.5)
[2017-04-07 04:52] LABS: PLATELET ESTIMATE DEC (ADEQUATE)
[2017-04-07 04:53] LABS: CALCIUM, SERUM 8.8 MG/DL (8.5-10.4); CHLORIDE, SERUM 98 MMOL/L (96-112); CO2 (CARBON DIOXIDE) 36 MMOL/L (24-34); CREATININE 1.32 MG/DL (0.55-1.02); ELLIPTOCYTES 1+ (3-10/OIF) (0-2/OIF); GFR AFRICAN AMERICAN 48 ML/MIN (>=60); GFR NON AFRICAN AMERICAN 41 ML/MIN (>=60); HYPOCHROMIA 1+ (3-10/OIF) (0-2/OIF); SODIUM, SERUM 138 MMOL/L (135-148); TEARDROP SHAPED RBCS OCC (0-2/OIF); TROPONIN I 0.02 NG/ML (<0.05)
[2017-04-07 04:54] LABS: BUN (BLOOD UREA NITROGEN) 28 MG/DL (6-23); GLUCOSE, SERUM 221 MG/DL (60-99); POTASSIUM, SERUM 4.3 MMOL/L (3.5-5.3)
[2017-04-07 05:01] LABS: ALLENS TEST Pos; BE (BASE EXCESS) 8.9 MEQ/L (0 +/- 2.5); BIPAP 22/8 cm.H2O; HCO3 (ACTUAL BICARBONATE) 35.9 MEQ/L (23-27); HEMOBLOGIN CONTENT 9.6 G/DL (12-16); INSTRUMENT SERIAL # 8083; METHEMOGLOBIN 0.2 % (0-3); O2 CONTENT 12.8 VOL% (18-24); PCO2 (CO2 TENSION) 65 MMHG (35-45); PO2 (O2 TENSION) 82 MMHG (79-93); SAMPLE Arterial; pH 7.36 (7.37-7.43)
[2017-04-07 08:12] LABS: GLYCOHEMOGLOBIN (HbA1c) 5.3 % (4.7-6.1)
[2017-04-07 15:59] LABS: ASCORBIC ACID (UR NOT ORDER) NEG (NEG); BILIRUBIN, URINE NEGATIVE (NEG); KETONE, URINE NEGATIVE (NEG); LEUKOCYTE ESTERASE(NOT OR MOD (NEG); WBC (NOT ORDERED) (RFLEX) 29 (0-5)
[2017-04-09 06:33] LABS: BUN (BLOOD UREA NITROGEN) 25 MG/DL (6-23); CALCIUM, SERUM 9.1 MG/DL (8.5-10.4); CHLORIDE, SERUM 102 MMOL/L (96-112); CO2 (CARBON DIOXIDE) 36 MMOL/L (24-34); CREATININE 0.98 MG/DL (0.55-1.02); GFR AFRICAN AMERICAN 68 ML/MIN (>=60); GFR NON AFRICAN AMERICAN 59 ML/MIN (>=60); GLUCOSE, SERUM 186 MG/DL (60-99); POTASSIUM, SERUM 4.3 MMOL/L (3.5-5.3); SODIUM, SERUM 142 MMOL/L (135-148)
[2017-04-11] MEDS ORDERED: LEVEMIR SC (09:59)
[2017-05-07] MEDS ORDERED: TANZEUM 30 MG SC (23:05)
[2017-05-07] MEDS ORDERED: LEVEMFLXPN SC (23:06)
[2017-05-07] MEDS ORDERED: LOP25 PO (23:06)
[2017-05-07] MEDS ORDERED: NOVOPEN SC (23:07)
[2017-05-07] MEDS ORDERED: MSCONTIN PO (23:08)
[2017-05-07] MEDS ORDERED: K-TABS10 MEQ PO (23:08)
[2017-05-07] MEDS ORDERED: BONIVA150 MG PO (23:08)
[2017-05-07] MEDS ORDERED: NEUR300 PO (23:09)
[2017-05-07] MEDS ORDERED: CELEXA20 PO (23:09)
[2017-05-07] MEDS ORDERED: BUM1 PO (23:09)
[2017-05-07] MEDS ORDERED: CRESTOR5 MG PO (23:09)
[2017-05-07] MEDS ORDERED: PACERONE200 MG PO (23:09)
[2017-05-07] MEDS ORDERED: MIRALAX POWDER1 PKT PO (23:09)
[2017-05-07] MEDS ORDERED: ELIQUIS 5 MG TAB5 MG PO (23:10)
[2017-05-07] MEDS ORDERED: FERROUS SULF325 M1 PO (23:10)
[2017-05-07] MEDS ORDERED: ASAB PO (23:10)
[2017-05-07] MEDS ORDERED: SPIRIVA INH (23:10)
[2017-05-07] MEDS ORDERED: VITAMIN D31000 UNIT PO (23:10)
[2017-05-07] MEDS ORDERED: ALBUTEROL0.083 % INH (23:11)
[2017-05-15] MEDS ORDERED: BUM2 PO (14:34)
[2017-05-15] MEDS ORDERED: BUM1 PO (14:36)
[2017-05-15] MEDS ORDERED: KLOR-CON20 MEQ PO (14:38)
[2017-05-26] MEDS ORDERED: NORCO1 TA1 PO (09:36)
== END 2017-04-11 19:23 | disposition home health service (06) | DRG 291 ==
LOC: ER 17:41 → IMCU 22:40 → 7NO 04-07 16:16
PROVIDERS: Emergency Medicine; Internal Medicine; Internal Medicine Pulmonary Disease
PROC: 4B02XTZ Measurement of Cardiac Defibrillator, External Approach (ICD-10-PCS; principal; 2017-04-06)
PROC: 5A09457 Assistance with Respiratory Ventilation, 24-96 Consecutive Hours, Continuous Positive Airway Pressure (ICD-10-PCS; 2017-04-06)
DX: I50.23 Acute on chronic systolic (congestive) heart failure (principal); J96.22 Acute and chronic respiratory failure with hypercapnia; J96.21 Acute and chronic respiratory failure with hypoxia; D69.6 Thrombocytopenia, unspecified; E11.22 Type 2 diabetes mellitus with diabetic chronic kidney disease; J44.1 Chronic obstructive pulmonary disease with (acute) exacerbation; E66.01 Morbid (severe) obesity due to excess calories; K74.60 Unspecified cirrhosis of liver; N18.3 Chronic kidney disease, stage 3 (moderate); I48.91 Unspecified atrial fibrillation; Z79.01 Long term (current) use of anticoagulants; I25.5 Ischemic cardiomyopathy; Z86.718 Personal history of other venous thrombosis and embolism; Z85.3 Personal history of malignant neoplasm of breast; G47.33 Obstructive sleep apnea (adult) (pediatric); Z95.810 Presence of automatic (implantable) cardiac defibrillator
CPT/HCPCS: 36600; 71010; 71020; 80048; 80076; 81001; 82533; 82805; 82962; 83036; 83605; 83735; 83880; 84100; 84145; 84443; 84484; 85025; 85379; 85610; 85730; 87040; 87077; 87086; 87186; 87449; 87641; 93005; 94640; 94660; 96374; 96375; 99291; A9270-GY; C8929; J1720; J2930; Q9957

== ENCOUNTER 2017-06-24 19:37 | Inpatient (IN) | payer MEDICARE, OTHER ==
[~2017-06-24] VITALS: Ht 157.5 cm; Wt 96.4 kg
--- NOTE | ~2017-06-24 | HP ---
History And Physical [facility] [id number] [place]. [address] NAME: SANTIAGO PERALTA : 46 STATUS : ADM IN PAT#: [id number] AGE: 67 ADM/REG DATE : 06/24/17 MR#: [id number] REPORT SERV DATE: 06/25/17 DICTATED BY: ELIZABETH YAN DATE: 06/24/17 REPORT STATUS : Draft TRANSCRIBED BY: MODL DATE: 06/24/17 DATE OF ADMISSION: 06/24/2017 CHIEF COMPLAINT: Transfer from rehab psych facility for bradycardia. HISTORY OF PRESENT ILLNESS: The patient is a 67-year-old female with somewhat complex past medical history including but not limited to chronic pain, diabetes, hypertension, COPD on Trilogy, systolic heart failure, EF of 35% to 40% followed by Dr. Sandhu and Dr. Bridges, coronary disease, status post CABG, sleep apnea, hypoventilation on Trilogy, stroke, cirrhosis, splenomegaly, UTI, breast cancer in 2011, colon polyps, DVT history earlier this year, AFib, and V-tach, status post cardioversion, on anticoagulation, pancytopenia, AICD with recent lead replacements approximately one month ago by Dr. Wu due to lead failure, who presents after having Rapid Response called at outside facility rehab for bradycardia. The patient was asymptomatic when discussing with her, but who is at bedside reports that the patient was actually somewhat weak and sleeping majority of the day. The patient denies any chest pain, shortness of breath, any shocking type feelings which she has had in the past with prior pacers. No nausea, vomiting, or diarrhea. P.o. has been slightly good, but has been more restful earlier throughout the day, but wide awake currently, in no distress. REVIEW OF SYSTEMS: Ten-point review of systems negative except for that under HPI; however, the patient does report additionally having chronic fluid in bilateral lower extremities and has been mainly on bed rest due to her fall and recent fixing of her right hip after her fall, which has led her to rehab facility. PAST MEDICAL HISTORY: As noted above. PAST SURGICAL HISTORY: Recent lead change out, CABG in 1989, AICD, right mastectomy, appendectomy, hysterectomy and oophorectomy, exploratory laparoscopy, left wrist surgery. ALLERGIES: SULFA AND LATEX. SOCIAL HISTORY: Never smoked or alcohol. From [place], [place]. , with at bedside. No illicits. FAMILY HISTORY: Heart disease at 61 and 45 in mother and father respectively. CURRENT MEDICATIONS: Albuterol, amiodarone, Eliquis, Halfprin, Dulcolax, Bumex, vitamin D, Celexa, ferrous sulfate, Neurontin, Donora, Boniva, NovoLog, Levemir, Zaroxolyn, Lopressor, milk of magnesia, MS Contin, Thera-M Plus multivitamin, nystatin powder, MiraLAX, Klor-Con, Crestor, Senokot, Spiriva, and Tanzeum. PHYSICAL EXAMINATION: VITAL SIGNS: Weight 97.06, heart rate 49 to 50. Most recent vitals, 111/50, respiratory rate 16 to 18, O2 saturations 95% on 2 L, temperature 98. History And Physical [address] [address] NAME: SANTIAGO PERALTA : 46 STATUS : ADM IN [facility]#: [id number] AGE: 67 ADM/REG DATE : 06/24/17 MR#: [id number] REPORT SERV DATE: 06/25/17 DICTATED BY: ELIZABETH YAN DATE: 06/24/17 REPORT STATUS : Draft TRANSCRIBED BY: ERI DATE: 06/24/17 GENERAL: No acute distress. Calm, pleasant, obese. EYES: No scleral icterus. EOMI. ENT: Nares patent. Tongue midline. RESPIRATORY: Decreased lower lung jacobsen, but clear upper lung jacobsen. CV: Systolic ejection murmur. No rubs or gallops. Bilateral edema up to lower legs. ABDOMEN: Soft and nontender. Bowel sounds positive. EXTREMITIES: Moves upper extremities with no difficulty. Lower extremities, pain with right leg movement secondary to fracture. Bilateral obesity. SKIN: Warm and dry. LYMPH: No cervical or supraclavicular lymphadenopathy. HEME: No bleeding or bruising. PSYCH: Appropriate mood and affect currently. LABORATORY DATA: Still currently pending, but from outside facility, sodium of 141, potassium 3.0, CO2 of 49, calcium of 10.7, BUN and creatinine of 34 and 0.87. LFTs within normal limits. WBC 4.3, H and H of 9.5 and 30.5, MCV 89.4, platelets of 101. Troponin negative. Lactic acid 1.1. ProBNP 1276, upper limit of normal is 900 at outside facility. pH of 7.52, pCO2 of 73, pO2 of 64, bicarb 59.6. Chest x-ray: No acute cardiopulmonary abnormality; however, left lobe difficult to evaluate due to cardiomegaly, patient rotation, and prior intrathoracic surgery. Prominent central right pulmonary artery, raising possibility of pulmonary arterial hypertension. Marked cardiomegaly. ASSESSMENT: 1. Bradycardia. 2. Diabetes type 2. 3. Hypertension. 4. Chronic obstructive pulmonary disease, on Trilogy. 5. Systolic heart failure. 6. Coronary artery disease. 7. Obstructive sleep apnea. 8. Cirrhosis history. 9. Stroke history. 10.Recent hip fracture. 11.Deep venous thrombosis history. 12.Atrial fibrillation. 13.Chronic debility. 14.Hypokalemia. 15.Questionable pulmonary artery hypertension. PLAN: 1. For bradycardia status post lead change approximately one month ago with [place] pacer, we will interrogate pacer, but appears possible failure or no lead capture as telemetry appears to be intrinsic rhythm and asymptomatic currently. We will consult Dr. Wu and Dr. Sandhu. Hold amiodarone and Coreg until evaluated by Cardiology. 2. Diabetes type 2. Sliding scale insulin. Continue home medications. History And Physical [address] [address] NAME: SANTIAGO PERALTA : 46 STATUS : ADM IN [facility]#: [id number] AGE: 67 ADM/REG DATE : 06/24/17 MR#: [id number] REPORT SERV DATE: 06/25/17 DICTATED BY: ELIZABETH YAN DATE: 06/24/17 REPORT STATUS : Draft TRANSCRIBED BY: MODPaulette DATE: 06/24/17 3. Hypertension, on home medications with holding of beta-arcelia. 4. COPD, on Trilogy, not in acute exacerbation. 5. Systolic heart failure, positive overload, mid 35% to 45%. Diuresis. Monitor I's and O's. Fluid restriction of 1500 mL. 6. Coronary artery disease, followed by Dr. Bridges, Dr. Harper, and Dr. Wu. 7. SHASHI, continue Trilogy. 8. Recent hip fracture, status post repair. Currently on bed rest. PT/OT. Will need rehab again after acute episode evaluated. 9. DVT history. Prophylaxis on Eliquis. 10.Atrial fibrillation, on Coumadin, holding beta-arcelia and amiodarone secondary to bradycardia. Has had history of cardioversion. 11.Chronic debility. PT. 12.Hypokalemia. Replace per protocol. 13.Questionable pulmonary artery hypertension, incidentally found on imaging at an outside facility. We will have followup imaging and defer to Cardiology evaluation. Reassess in a.m. All questions answered with family at bedside. DDN/MODL Elizabeth Yan MD / [id number] CC: Mirza Song M.D.
--- NOTE | ~2017-06-24 | DS ---
Discharge Summary [facility] [address] [place]. [address] NAME: SANTAIGO PERALTA : 46 STATUS : DIS IN PAT#: [id number] AGE: 67 ADM/REG DATE : 06/24/17 MR#: [id number] REPORT SERV DATE: 07/01/17 DICTATED BY: DANITA VIZCAINO DATE: 06/29/17 REPORT STATUS : Draft TRANSCRIBED BY: MODL DATE: 06/29/17 ADMISSION DATE: 06/24/2017 DISCHARGE DATE: 06/29/2017 CONSULTANTS: 1. Dr. Elton Bridges, Cardiology. 2. Dr. Robert Rouse, Cardiology. DISCHARGE DIAGNOSES: 1. Metabolic encephalopathy, acute due to problem #2. 2. Severe metabolic alkalosis due to combination diuretics. 3. Severe hypokalemia due to combination diuretics. 4. Sick sinus syndrome with previous atrial fibrillation and previous ventricular tachycardia with implanted pacer ICD. 5. Fall with right hip fracture, 05/2007, repaired at [place], still nonweightbearing, right leg. 6. Coronary artery bypass in 1989 with left ventricular ejection fraction, 55%. 7. Obstructive sleep apnea with obesity hypoventilation, needing Trilogy with sleep. 8. Obesity with body mass index of 40.8. 9. Deep vein thrombosis, 11/2016. 10.Nonalcoholic steatohepatitis cirrhosis with chronic thrombocytopenia. 11.Essential tremor. 12.Low magnesium due to a combination diuretics. 13.Previous breast cancer, 2011. 14.Previous stroke. 15.Chronic pain, on MS Contin. 16.Insomnia. HISTORY: This patient had recent surgery with Dr. Panfilo Wu for dysfunctional high- voltage right ventricular lead, needing a new placement of this on 05/23/2017. The patient later had a fall and ended up being taken to [place], had a right hip fracture and surgery there. and patient state the patient was not allowed to bear weight because there has been some movement of the fracture fragments and she is still on non-weightbearing status. She reportedly had leg edema that was worsening while at the [place] rehab portion of [facility], and in addition to her Bumex, the facility had called Cardiology and got an order for metolazone. The patient was started on metolazone 2.5 mg p.o. b.i.d., and within a few days, had myoclonus that was different than her usual essential tremor. She had progressive confusion. Because of that, the called the staff to the room, and while in the room, they noticed her heart rate in the 40s, and because of that, sent her to the ER at [facility] and she was transferred here because of the slow heart rate. Cardiology, Dr. Bridges, saw her. They assessed her pacer ICD. They found it was functioning normal. They saw that the bradycardia parameters were set to a base of 40 per minute, which helps to explain where heart rate was in the 40s as she is on metoprolol and Discharge Summary [address] [place]. [address] NAME: SANTIAGO PERALTA : 46 STATUS : DIS IN PAT#: [id number] AGE: 67 ADM/REG DATE : 06/24/17 MR#: [id number] REPORT SERV DATE: 07/01/17 DICTATED BY: DANITA VIZCAINO DATE: 06/29/17 REPORT STATUS : Draft TRANSCRIBED BY: ERI DATE: 06/29/17 amiodarone. When I met her, she was indeed encephalopathic, lethargic, intermittently able to answer a few words, having prominent myoclonus, and she was noted to have a bicarbonate level greater than 45, consistent with metabolic alkalosis. Along with that, her potassium was 2.5. She was given potassium replacement. Her diuretics were held. Her bicarbonate began to drop slowly, and as it did, her myoclonus resolved, leaving just her baseline essential tremor, and her encephalopathy cleared. She is back to her usual mental status. The patient and states she was on her usual dose of MS Contin. There had been no increase in that recently. She tells me she actually would like to reduce that dose down and so we cut it in half from 30 b.i.d. to 15 b.i.d. and she is doing well with that so far. I do not believe her narcotics were significant contribution to her current encephalopathy during this hospitalization. She has long-standing essential tremor that is there on her head and neck and hands, it is no worse than her baseline for a long time. Her myoclonus though did resolve after the alkalosis improved. She has obesity hypoventilation, has a Trilogy machine. She does not like to wear it, but we have emphasized the importance to her of this. The patient is felt to need inpatient rehab and those arrangements have been made. If she needs additional diuretics beyond her baseline Bumex, it should be for very short period of time (such as one or two days) with close monitoring of not only her potassium and magnesium but also her bicarbonate, so she does not repeat the same severe alkalosis and end up encephalopathic again. DISCHARGE MEDICATIONS: Eliquis 5 mg b.i.d.; aspirin 81 mg daily; amiodarone 200 mg daily; Bumex 1 mg p.o. b.i.d.; Celexa 20 mg daily; vitamin D 2000 units daily; ferrous sulfate 325 mg daily; gabapentin 300 mg b.i.d.; Levemir 10 units b.i.d.; NovoLog level 2 sliding scale before meals and at bedtime; magnesium 400 mg b.i.d.; MS Contin 15 mg b.i.d. and I gave a prescription for 10 of these; [place] 5/325 q.6 hours p.r.n. breakthrough pain, #20 prescribed, no refill; metoprolol 25 mg b.i.d., hold for pulse less than 65; Mycostatin topical powder to skin folds; MiraLAX one packet daily; K-Dur 20 mEq tablets, two dissolved in water, taking p.o. b.i.d. (not crushed); Senokot daily; Spiriva one capsule inhaled daily; Tylenol 650 q.6 hours p.r.n. mild pain; Dulcolax suppositories p.r.n.; glucose tablets p.r.n., hypoglycemia; milk of magnesia p.r.n., constipation; albuterol nebulized q.6 hours p.r.n., shortness of breath; Boniva 150 mg every 30 days; Crestor 5 mg at bedtime; Tanzeum 30 mg subcu every week; multivitamin daily. The patient is to follow up with Dr. Sabillon in a month and with her orthopedic surgeon from [place] within the next few weeks. She is still nonweightbearing on that right leg. I spent 46 minutes today with the patient and with the discharge plan. Discharge Summary [facility] [address] [place]. [address] NAME: SANTIAGO PERALTA : 46 STATUS : DIS IN PAT#: [id number] AGE: 67 ADM/REG DATE : 06/24/17 MR#: [id number] REPORT SERV DATE: 07/01/17 DICTATED BY: DANITA VIZCAINO DATE: 06/29/17 REPORT STATUS : Draft TRANSCRIBED BY: MODPaulette DATE: 06/29/17 RSMadison/ERI Danita Vizcaino M.D. / [id number] CC: Vnaessa Rowe WHITNEY L Sharon Farber, M.D. John Carter Hemphill, MD Donald Hetzel, M.D. [facility]
--- NOTE | ~2017-06-24 | CN ---
Consultation Report [facility] [address] [place]. [address] NAME: SANTIAGO PERALTA : 46 STATUS : ADM IN PAT#: [id number] AGE: 67 ADM/REG DATE : 06/24/17 MR#: [id number] REPORT SERV DATE: 06/25/17 DICTATED BY: PETROS BRIDGES DATE: 06/25/17 REPORT STATUS : Draft TRANSCRIBED BY: MODL DATE: 06/25/17 CARDIOLOGY CONSULT NOTE DATE OF CONSULTATION: 06/25/2017 IDENTIFYING DATA: The patient is a 67-year-old woman with multiple medical problems, which include a history of combined systolic and diastolic heart failure, right-sided heart failure, and hypercarbic respiratory failure due to sleep-disordered breathing. CHIEF COMPLAINT: The patient is admitted from a rehab facility for altered mental status and bradycardia. HISTORY OF PRESENT ILLNESS: Ms. Peralta is a medically difficult 67-year-old woman with multiple cardiovascular problems including a history of combined systolic and diastolic heart failure, with an ejection fraction previously as low as 35%, which has now normalized to 55% based on an echocardiogram from 04/2017. The patient was recently admitted with hypercarbic respiratory failure. Subsequently to that, she underwent repositioning of an RV ICD lead due to lead dysfunction by Dr. Wu. The patient was discharged to a rehab facility after that procedure with no immediate complications. Someone from the rehab facility had called Cardiology Clinic about a week ago, due to the fact that the patient was having worsening lower extremity edema and weight gain despite an aggressive regimen of diuretics. It was recommended at that time that the patient be started on metolazone. The patient apparently experienced an episode of confusion and generalized fatigue lasting about 12 hours yesterday 06/24/2017. The patient's reports that vital signs were checked, the patient was found to have profound bradycardia. Her blood pressure was relatively low at 95/55. The patient was apparently admitted for further workup. The patient herself does not remember the episode clearly. She remembers being fatigued and confused. At this time, the patient reports that she feels more or less back in her usual state of health. PAST MEDICAL HISTORY: 1. History of systolic and diastolic heart failure with most recent left ventricular ejection fraction calculated at 55% by echocardiography. 2. Obstructive sleep apnea, on noninvasive ventilation. 3. Type 2 diabetes. 4. Morbid obesity. 5. Oxygen-dependent COPD. 6. History of hepatic cirrhosis. 7. History of breast cancer, status post mastectomy. 8. Paroxysmal atrial fibrillation. 9. Coronary artery disease, status post coronary artery bypass grafting surgery. 10.Chronic thrombocytopenia. 11.History of ventricular tachycardia. 12.History of DVT. 13.History of stroke. Consultation Report [facility] [address] [place]. [address] NAME: SANTIAGO PERALTA : 46 STATUS : ADM IN PAT#: [id number] AGE: 67 ADM/REG DATE : 06/24/17 MR#: [id number] REPORT SERV DATE: 06/25/17 DICTATED BY: PETROS BRIDGES DATE: 06/25/17 REPORT STATUS : Draft TRANSCRIBED BY: ERI DATE: 06/25/17 PAST SURGICAL HISTORY: 1. Recent revision of RV ICD lead. 2. Coronary artery bypass grafting surgery. 3. AICD implantation. 4. Appendectomy. 5. Multiple abdominal surgeries. 6. Right mastectomy. 7. Left wrist surgery. 8. Exploratory laparotomy. 9. The patient reports she recently had a hip fracture. FAMILY HISTORY: Negative for early coronary heart disease or sudden cardiac , though the patient's father and mother eventually developed heart disease at an advanced age. SOCIAL HISTORY: The patient has no current history of tobacco, alcohol, or drug use. ALLERGIES: ADHESIVE TAPE, LASIX, AND SULFA DRUGS. HOME MEDICATIONS: 1. Albuterol nebulizers as needed. 2. Amiodarone 200 mg p.o. q.a.m. 3. Eliquis 5 mg p.o. twice daily. 4. Aspirin 81 mg p.o. q.a.m. 5. Duplex 10 mg rectally q.12 hours as needed for constipation. 6. Bumex 1 mg p.o. twice daily. 7. Vitamin D 2000 units p.o. q.a.m. 8. Metoprolol tartrate 25 mg p.o. twice daily. 9. Milk of magnesia 30 mL p.o. twice daily as needed. 10.MS Contin 30 mg p.o. twice daily. 11.Multivitamin one tablet daily. 12.Nystatin topical powder as needed. 13.MiraLAX powder for constipation. 14.Potassium chloride 30 mEq p.o. q.a.m. 15.Crestor 5 mg p.o. at bedtime. 16.Senokot 8.5 mg p.o. twice daily. 17.Tiotropium one capsule inhaled q.a.m. 18.Tanzeum 30 mg subcutaneously q.7 days. 19.Citalopram 20 mg p.o. q.a.m. 20.Ferrous sulfate 325 mg p.o. q.a.m. 21.Neurontin 300 mg p.o. twice daily. 22.Hydrocodone and acetaminophen one tablet q.6 hours as needed for pain. 23.Boniva 150 mg on the 18 of each month. 24.Sliding scale insulin. 25.Levemir insulin 10 units subcutaneously twice daily. Consultation Report [address] [place]. [address] NAME: SANTIAGO PERALTA : 46 STATUS : ADM IN [facility]#: [id number] AGE: 67 ADM/REG DATE : 06/24/17 MR#: [id number] REPORT SERV DATE: 06/25/17 DICTATED BY: PETROS BRIDGES DATE: 06/25/17 REPORT STATUS : Draft TRANSCRIBED BY: ERI DATE: 06/25/17 26.Metolazone 2.5 mg p.o. q.a.m. REVIEW OF SYSTEMS: A complete 12-system review was performed. This is noncontributory except for the pertinent positives and negatives noted in the history of present illness above. PHYSICAL EXAMINATION: VITAL SIGNS: Temperature is 98.6 degrees Fahrenheit, heart rate is 54 beats per minute and regular, respirations 18, oxygen saturation is 95% on 2 L nasal cannula, blood pressure is 123/64 mmHg. CONSTITUTIONAL: The patient is a morbidly obese white woman who is presently breathing easily in no acute distress. The patient is grossly alert and oriented x3. EYES: PERRL, EOMI, clear conjunctiva. HEAD/MNT: NCAT with moist mucous membranes and grossly normal hard and soft palate. NECK: Supple with no obvious thyromegaly or lymphadenopathy. CARDIOVASCULAR: There is a regular rhythm with a normal S1 and a physiologically split second heart sound. There is a grade 2/6 early peaking systolic murmur heard at the right upper sternal border. The jugular venous pressure does appear elevated at 10 cm. PULMONARY: There are scattered rales noted in the lung bases with slight expiratory wheezing. There is no dullness to percussion noted. ABDOMINAL: Soft, nontender, nondistended with no hepatosplenomegaly noted. EXTREMITIES: There is 2+ edema below the knees. MUSCULOSKELETAL: Grossly normal strength and range of motion in all extremities. INTEGUMENTARY: Skin appears intact with no bruises, wounds or active lesions noted. NEURO/PSYC: Alert and oriented x3, with no dysarthria, facial droop or lateralizing weakness noted. 12-LEAD EKG: A 12-lead EKG from an outside facility shows sinus bradycardia with a rate of 50 beats per minute. There are nonspecific ST/T-wave abnormalities. The EKG is otherwise unremarkable, with the exception of a prolonged QTc interval of approximately 600 milliseconds. CHEST X-RAY: This shows enlargement of the cardiac silhouette with mild pulmonary vascular congestion and an ICD with an RV lead in the appropriate location. LABORATORY DATA: CBC shows a white blood cell count of 4.1, hemoglobin 8.7, hematocrit 29, platelets 93. INR is 1.9. A BNP is elevated at 616. Electrolyte profile shows a sodium of 140, potassium 2.5, chloride is 89, CO2 is greater than 45, BUN 29, creatinine is 0.81, glucose is 123, calcium 10.2, and troponin I of 0.04. ASSESSMENT AND PLAN: 1. Bradycardia: The patient's ICD will be interrogated, to determine whether the device is functioning normally. Theoretically, the patient should not have a bradycardia exiting the lower rate limit of the device. We will make further recommendations following interrogation of the patient's ICD. If there is significant ongoing lead Consultation Report [facility] [place] [id number] [facility] [place]. [address] NAME: SANTIAGO PERALTA : 46 STATUS : ADM IN PAT#: [id number] AGE: 67 ADM/REG DATE : 06/24/17 MR#: [id number] REPORT SERV DATE: 06/25/17 DICTATED BY: PETROS BRIDGES DATE: 06/25/17 REPORT STATUS : Draft TRANSCRIBED BY: MODL DATE: 06/25/17 dysfunction, we will consider an electrophysiology consult. 2. Acute combined systolic and diastolic heart failure: The patient does appear to be volume overloaded at this time. We would recommend IV Bumex 1 mg q.12 hours and adjust as needed to affect a net 1 L negative diuresis per day. The patient most likely has predominantly right-sided congestive heart failure symptoms, which are very likely to be related to her underlying lung disease. The patient has extremely elevated CO2. We would suggest that RV dysfunction may be secondary to a pulmonary diagnosis. Most recent echocardiogram shows normal left ventricular systolic function. 3. Altered mental status: I suspect that this is due to the patient's multiple narcotics and psychotropic medications. These are probably also contributing to the patient's resting bradycardia. 4. Hypokalemia: The patient's potassium will be repleted. The Cardiology Service will continue to follow the patient during this admission. JENNIFER/ERI Petros Bridges MD / [id number] CC: Mirza Song M.D.
[~2017-06-24 19:37] MED LIST changes: +BUM2 PO; +FERROUS SULF325 M1 PO; +KLOR-CON20 MEQ PO; +NORCO1 TA1 PO; +PACERONE200 MG PO; +VITAMIN D31000 UNIT PO
[2017-06-24] MEDS ORDERED: NEUR300 PO (22:10)
[2017-06-24] MEDS ORDERED: BONIVA150 MG PO (22:15)
[2017-06-24] MEDS ORDERED: VITAMIN D2000 UNIT PO (22:15)
[2017-06-24] MEDS ORDERED: ALBUTEROL0.083 % INH (22:16)
[2017-06-24] MEDS ORDERED: ELIQUIS 5 MG TAB5 MG PO (22:16)
[2017-06-24] MEDS ORDERED: HALF81 PO (22:17)
[2017-06-24] MEDS ORDERED: BUM1 PO (22:17)
[2017-06-24] MEDS ORDERED: CELEXA20 PO (22:17)
[2017-06-24] MEDS ORDERED: CORDARONE PO (22:19)
[2017-06-24] MEDS ORDERED: LEVEMIR SC (22:33)
[2017-06-24] MEDS ORDERED: BISR PR (22:33)
[2017-06-24] MEDS ORDERED: FERROUS SULF325 M1 PO (22:33)
[2017-06-24] MEDS ORDERED: ZAROX2.5B PO (22:34)
[2017-06-24] MEDS ORDERED: MOMUD PO (22:35)
[2017-06-24] MEDS ORDERED: LOP25 PO (22:35)
[2017-06-24] MEDS ORDERED: MIRALAX POWDER1 PKT PO (22:35)
[2017-06-24] MEDS ORDERED: MSCONTIN PO (22:35)
[2017-06-24] MEDS ORDERED: NORCO1 TA1 PO (22:36)
[2017-06-24] MEDS ORDERED: NOVOLOG (22:37)
[2017-06-24] MEDS ORDERED: NYSTATPOW TOP (22:37)
[2017-06-24] MEDS ORDERED: KLOR-CON20 MEQ PO (22:38)
[2017-06-24] MEDS ORDERED: SPIRIVA INH (22:39)
[2017-06-24] MEDS ORDERED: CRESTOR5 MG PO (22:39)
[2017-06-24] MEDS ORDERED: SENTAB PO (22:39)
[2017-06-24] MEDS ORDERED: TANZEUM 30 MG SC (22:40)
[2017-06-24] MEDS ORDERED: THERA M PLUS PO (22:40)
[2017-06-25 06:23] LABS: BASOPHILS 0.2 %; BASOPHILS ABSOLUTE 0.01 10/3/uL (0.0-0.16); EOSINOPHILS 2.5 %; HEMATOCRIT 28.8 % (36.0-48.0); HEMOGLOBIN 8.7 g/dL (12.0-16.0); IMMATURE GRANULOCYTES 0.2 %; IMMATURE GRANULOCYTES ABSOLUTE 0.01 10/3/uL (0.0-0.11); LYMPHOCYTES 14.5 %; LYMPHOCYTES ABSOLUTE 0.59 10/3/uL (0.67-4.30); MANUAL DIFF NO %; MEAN CORPUS HGB CONC 30.2 g/dL (32.0-36.0); MEAN CORPUSCULAR HEMOGLOB 28.4 pg (26.0-34.0); MEAN CORPUSCULAR VOLUME 94.1 fL (80-100); MONOCYTES 10.3 %; MONOCYTES ABSOLUTE 0.42 10/3/uL (0.21-1.20); NEUTROPHILS 72.3 %; NEUTROPHILS ABSOLUTE 2.94 10/3/uL (2.02-8.40); PLATELET COUNT 93 10/3/uL (150-400); RBC DISTRIBUTION WIDTH 16.4 % (12.0-16.0); RED CELL COUNT 3.06 10/6/uL (4.0-5.6); WHITE BLOOD CELLS 4.1 10/3/uL (4.5-10.5)
[2017-06-25 06:29] LABS: INTERNATIONAL NORMAL RATI 1.9 UNITS (-); PARTIAL THROMBO TIME 40.1 SEC (22.5-37.2)
[2017-06-25 06:33] LABS: PROTIME (NOT ORD) 21.2 SEC (12.0-14.5)
[2017-06-25 06:51] LABS: CALCIUM, SERUM 10.2 MG/DL (8.5-10.4); CREATININE 0.81 MG/DL (0.55-1.02); GFR AFRICAN AMERICAN 86 ML/MIN (>=60); GFR NON AFRICAN AMERICAN 74 ML/MIN (>=60); SODIUM, SERUM 140 MMOL/L (135-148); TROPONIN I 0.04 NG/ML (<0.05)
[2017-06-25 06:54] LABS: BUN (BLOOD UREA NITROGEN) 29 MG/DL (6-23); CHLORIDE, SERUM 89 MMOL/L (96-112); GLUCOSE, SERUM 123 MG/DL (60-99); POTASSIUM, SERUM 2.5 MMOL/L (3.5-5.3)
[2017-06-25 06:55] LABS: CO2 (CARBON DIOXIDE) > 45 MMOL/L (24-34)
[2017-06-25 15:58] LABS: POTASSIUM, SERUM 2.7 MMOL/L (3.5-5.3); TROPONIN I 0.04 NG/ML (<0.05)
[2017-06-26 05:55] LABS: BASOPHILS 0.4 %; BASOPHILS ABSOLUTE 0.02 10/3/uL (0.0-0.16); EOSINOPHILS 3.5 %; EOSINOPHILS ABSOLUTE 0.16 10/3/uL (0.0-0.53); HEMATOCRIT 29.9 % (36.0-48.0); HEMOGLOBIN 8.8 g/dL (12.0-16.0); IMMATURE GRANULOCYTES 0.2 %; IMMATURE GRANULOCYTES ABSOLUTE 0.01 10/3/uL (0.0-0.11); LYMPHOCYTES 15.9 %; LYMPHOCYTES ABSOLUTE 0.72 10/3/uL (0.67-4.30); MEAN CORPUS HGB CONC 29.4 g/dL (32.0-36.0); MEAN CORPUSCULAR HEMOGLOB 27.8 pg (26.0-34.0); MEAN CORPUSCULAR VOLUME 94.6 fL (80-100); MEAN PLATELET VOLUME 10.3 fL (9.2-13.0); MONOCYTES 10.8 %; MONOCYTES ABSOLUTE 0.49 10/3/uL (0.21-1.20); NEUTROPHILS 69.2 %; NEUTROPHILS ABSOLUTE 3.12 10/3/uL (2.02-8.40); PLATELET COUNT 106 10/3/uL (150-400); RBC DISTRIBUTION WIDTH 16.7 % (12.0-16.0); RED CELL COUNT 3.16 10/6/uL (4.0-5.6); WHITE BLOOD CELLS 4.5 10/3/uL (4.5-10.5)
[2017-06-26 05:56] LABS: MANUAL DIFF NO %
[2017-06-26 06:07] LABS: CALCIUM, SERUM 9.8 MG/DL (8.5-10.4); CHLORIDE, SERUM 93 MMOL/L (96-112); CREATININE 0.94 MG/DL (0.55-1.02); GFR AFRICAN AMERICAN 72 ML/MIN (>=60); GFR NON AFRICAN AMERICAN 62 ML/MIN (>=60); POTASSIUM, SERUM 3.3 MMOL/L (3.5-5.3); SODIUM, SERUM 140 MMOL/L (135-148)
[2017-06-26 06:08] LABS: BUN (BLOOD UREA NITROGEN) 23 MG/DL (6-23); CO2 (CARBON DIOXIDE) 42 MMOL/L (24-34); GLUCOSE, SERUM 96 MG/DL (60-99)
[2017-06-26 17:46] LABS: % IRON SAT 12 % (20-50); IRON BINDING CAPACITY 314 MCG/DL (225-410); IRON, SERUM 37 MCG/DL (35-150)
[2017-06-27 05:10] LABS: BUN (BLOOD UREA NITROGEN) 22 MG/DL (6-23); CALCIUM, SERUM 9.4 MG/DL (8.5-10.4); CHLORIDE, SERUM 95 MMOL/L (96-112); CO2 (CARBON DIOXIDE) 38 MMOL/L (24-34); GFR AFRICAN AMERICAN 87 ML/MIN (>=60); GFR NON AFRICAN AMERICAN 75 ML/MIN (>=60); GLUCOSE, SERUM 97 MG/DL (60-99); SODIUM, SERUM 138 MMOL/L (135-148)
[2017-06-27 05:11] LABS: POTASSIUM, SERUM 2.9 MMOL/L (3.5-5.3)
[2017-06-27 07:36] LABS: POTASSIUM, SERUM 3.4 MMOL/L (3.5-5.3)
[2017-06-27 21:09] LABS: POTASSIUM, SERUM 4.2 MMOL/L (3.5-5.3)
[2017-06-28 05:55] LABS: BUN (BLOOD UREA NITROGEN) 21 MG/DL (6-23); CALCIUM, SERUM 9.1 MG/DL (8.5-10.4); CHLORIDE, SERUM 97 MMOL/L (96-112); CO2 (CARBON DIOXIDE) 37 MMOL/L (24-34); CREATININE 0.99 MG/DL (0.55-1.02); GFR AFRICAN AMERICAN 67 ML/MIN (>=60); GFR NON AFRICAN AMERICAN 58 ML/MIN (>=60); POTASSIUM, SERUM 3.4 MMOL/L (3.5-5.3); SODIUM, SERUM 139 MMOL/L (135-148)
[2017-06-28 05:58] LABS: GLUCOSE, SERUM 119 MG/DL (60-99)
[2017-06-29 04:52] LABS: BUN (BLOOD UREA NITROGEN) 20 MG/DL (6-23); CHLORIDE, SERUM 99 MMOL/L (96-112); CO2 (CARBON DIOXIDE) 37 MMOL/L (24-34); CREATININE 0.91 MG/DL (0.55-1.02); GFR AFRICAN AMERICAN 75 ML/MIN (>=60); GFR NON AFRICAN AMERICAN 64 ML/MIN (>=60); GLUCOSE, SERUM 121 MG/DL (60-99); POTASSIUM, SERUM 3.6 MMOL/L (3.5-5.3); SODIUM, SERUM 137 MMOL/L (135-148)
== END 2017-06-29 21:00 | DRG 291 ==
LOC: 5NO 21:32
PROVIDERS: Hospitalist; Internal Medicine
PROC: 4B02XTZ Measurement of Cardiac Defibrillator, External Approach (ICD-10-PCS; principal; 2017-06-25)
DX: I11.0 Hypertensive heart disease with heart failure (principal); G93.41 Metabolic encephalopathy; E87.3 Alkalosis; D69.59 Other secondary thrombocytopenia; E66.2 Morbid (severe) obesity with alveolar hypoventilation; Z68.41 Body mass index [BMI] 40.0-44.9, adult; G25.3 Myoclonus; I48.0 Paroxysmal atrial fibrillation; K74.60 Unspecified cirrhosis of liver; R00.1 Bradycardia, unspecified; G25.0 Essential tremor; E87.6 Hypokalemia; I50.43 Acute on chronic combined systolic (congestive) and diastolic (congestive) heart failure; J44.9 Chronic obstructive pulmonary disease, unspecified; E11.9 Type 2 diabetes mellitus without complications; I25.10 Atherosclerotic heart disease of native coronary artery without angina pectoris; R53.81 Other malaise; Z95.810 Presence of automatic (implantable) cardiac defibrillator; Z95.1 Presence of aortocoronary bypass graft; Z79.4 Long term (current) use of insulin; K75.81 Nonalcoholic steatohepatitis (NASH); Z85.3 Personal history of malignant neoplasm of breast; T50.2X5A Adverse effect of carbonic-anhydrase inhibitors, benzothiadiazides and other diuretics, initial encounter; Z79.82 Long term (current) use of aspirin; Z79.01 Long term (current) use of anticoagulants; Z79.891 Long term (current) use of opiate analgesic
CPT/HCPCS: 71010; 80048; 82607; 82728; 82962; 83540; 83550; 83735; 83880; 84132; 84484; 85025; 85610; 85730; 93005; 97110-GP; 97162-GP; 97166-GO; 97530-GP; A9270-GY; G8978-CM-GP; G8979-CL-GP; G8987-CK-GO; G8988-CJ-GO; J3475